=== PATIENT | male | born 1945 | race Caucasian/White ===

== ENCOUNTER 2017-04-30 08:56 | Observation (INO) | payer MEDICARE ==
[~2017-04-30] VITALS: Ht 182.9 cm; Wt 87.3 kg
[~2017-04-30 08:56] MED LIST: ACET500 PO; ALBU3IS INH; ALBU90OI61 INH; ALLO100 PO; AMLO10 PO; AMLO5 PO; ASCO500 PO; ASPI81CH PO; ASPI81EC PO; Ativan0.5 MG PO; BISA5EC PO; CALACE667G PO; CALCIT950 PO; CHOL10002 PO; CINA30 PO; CITA20 PO; CLON.1 PO; CLON.2 PO; CLON.5 PO; CYAN1000; CYAN1000 PO; CYAN1000I; CYAN1000I IM; CYCL10 PO; Calcium Acetat667 MG PO; Cymbalta20 MG PO; DEXT40GEL PO; DIAZ2 PO; DILT120 PO; DILT60 PO; DILT60ER PO; DOCU100 PO; ERGO50000 PO; FERR325 PO; FLONASE ALLERG9.9 ML INH; FLUN25SP; FOLI1 PO; FURO40 PO; FURO80 PO; GABA100 PO; GABA300 PO; HYDMOR2 PO; HYDRA25 PO; LEVCAR2510 PO; LISI20 PO; LORA.5 PO; METO25 PO; METO50ER PO; METR500 PO; MIDO2.5 PO; MORP15ER PO; MULVITMINF PO; NICO21TP; NITR.4SL SL; NORT25 PO; OMEP20ER PO; ONDA4ODT MM; OXYACE5T PO; OXYC10ER PO; OXYC5 PO; PANT40 PO; PYRI100 PO; Prosource30 ML PO; QUET200 PO; QUET25 PO; ROPI.25 PO; ROPI1 PO; SILD50TA PO; SIME80CH PO; SODBIC650 PO; TAMS.4ER PO; TIOT18 INH; TIOT18 PO; TOCO1000 PO; VITAMIN E100 UNIT PO; [UNRECOGNIZED DRUG - CODE] SC
[2017-04-30] MEDS ORDERED: TIOT18 INH (09:23)
[2017-04-30] MEDS ORDERED: TUMS200 MG PO (09:23)
[2017-04-30] MEDS ORDERED: Requip0.5 MG PO (09:24)
[2017-04-30] MEDS ORDERED: Carbidopa-Levo1 EAC1 PO (09:24)
[2017-04-30 09:27] LABS: BASOPHILS ABSOLUTE AUTO 0.04 K/mm3 (0.00-0.23); BASOPHILS PERCENT AUTO 1 % (0-2); EOSINOPHILS ABSOLUTE AUTO 0.09 K/mm3 (0.00-0.68); EOSINOPHILS PERCENT AUTO 1 % (0-6); Hematocrit 33.9 % (37.0-53.0); Hemoglobin 10.3 g/dL (13.5-17.5); IMMATURE GRAN ABSOLUTE AUTO 0.03 K/mm3 (0.00-0.10); IMMATURE GRAN PERCENT AUTO 0 % (0-1); LYMPHOCYTES ABSOLUTE AUTO 0.47 K/mm3 (0.84-5.20); LYMPHOCYTES PERCENT AUTO 6 % (21-46); MONOCYTES ABSOLUTE AUTO 0.48 K/mm3 (0.16-1.47); MONOCYTES PERCENT AUTO 6 % (4-13); Mean Corpuscular HGB 29.1 pg (26.0-34.0); Mean Corpuscular HGB Conc 30.4 g/dL (31.5-36.5); Mean Corpuscular Volume 96 fL (80-100); Mean Platelet Volume 10.7 fL (9.1-12.4); NEUTROPHILS ABSOLUTE AUTO 6.84 K/mm3 (1.96-9.15); NEUTROPHILS PERCENT AUTO 86 % (41-73); Platelet Count 165 K/mm3 (150-400); RDW Coefficient Variation 17.2 % (11.7-14.2); RDW Standard Deviation 60.7 fL (35.1-46.3); Red Blood Cell Count 3.54 M/mm3 (4.30-5.90); White Blood Cell Count 7.95 K/mm3 (4.00-11.30)
[2017-04-30 09:57] LABS: International Normalized Ratio 0.94; Prothrombin Time Results 9.8 Sec (9.7-11.5)
[2017-04-30 09:59] LABS: Albumin/Globulin Ratio 0.9 (0.8-1.8); Bilirubin, Total 0.5 mg/dL (0.1-1.0); Bun/Creatinine Ratio 8.7 (12.0-20.0); Calcium, Blood 7.6 mg/dL (8.5-10.1); Creatinine, Blood 2.41 mg/dL (0.60-1.20); Globulin, Blood 3.2 g/dL (2.2-4.0); Magnesium, Blood 2.1 mg/dL (1.6-2.4); Potassium, Blood 3.3 mmol/L (3.5-5.5); Total Protein, Blood 6.2 g/dL (6.4-8.2); Troponin I 0.103 ng/mL (0.000-0.040)
[2017-04-30 10:03] LABS: Thyroid Stimulating Hormone 1.13 uIU/mL (0.360-4.800)
[2017-05-01 05:53] LABS: Bun/Creatinine Ratio 9.6 (12.0-20.0); Calcium, Blood 7.8 mg/dL (8.5-10.1); Creatinine, Blood 4.06 mg/dL (0.60-1.20); Potassium, Blood 4.5 mmol/L (3.5-5.5)
[2017-05-01] MEDS ORDERED: Calcium Acetat667 MG PO (08:41)
[2017-05-02] MEDS ORDERED: CLON.5 PO (21:48)
[2017-05-02] MEDS ORDERED: Zofran4 MG PO (21:51)
[2017-05-02] MEDS ORDERED: PYRI100 PO (21:54)
[2017-05-02] MEDS ORDERED: [UNRECOGNIZED DRUG - SUPPLY] (21:56)
[2017-05-02] MEDS ORDERED: CYAN1000I IM (22:00)
[2018-01-28] MEDS ORDERED: CALC.25 PO (16:11)
[2018-01-28] MEDS ORDERED: ASPI81CH PO (16:11)
[2018-01-28] MEDS ORDERED: CLOP75 PO (16:12)
[2018-01-28] MEDS ORDERED: LEVSOD50 PO (16:14)
[2018-01-28] MEDS ORDERED: PREG75 PO (16:15)
[2018-01-29] MEDS ORDERED: VITAMIN D32000 UNIT PO (00:45)
[2018-01-29] MEDS ORDERED: CYAN1000I IM (00:47)
[2018-01-29] MEDS ORDERED: DOXY100 PO (00:49)
[2018-01-31] MEDS ORDERED: FURO40 PO ×2 (08:46)
[2018-01-31] MEDS ORDERED: CALCIUM ACETAT667 MG PO (08:50)
[2018-01-31] MEDS ORDERED: LEVSOD88 PO (08:57)
[2018-01-31] MEDS ORDERED: OXYC10TA19 PO (08:59)
[2018-02-04] MEDS ORDERED: DOXY100 PO (12:49)
[2018-02-04] MEDS ORDERED: Bactrim Ds Tab1 EACH PO (12:51)
[2018-02-04] MEDS ORDERED: GABA100 PO (12:52)
[2018-02-04] MEDS ORDERED: ACET325 PO (12:55)
[2018-02-16] MEDS ORDERED: Amiodarone HCl200 MG PO (13:48)
[2018-02-16] MEDS ORDERED: ELIQUIS5 MG PO (13:49)
[2018-02-16] MEDS ORDERED: LEVSOD125 PO (13:53)
[2018-02-16] MEDS ORDERED: UNNA-FLEX1 EACH TOP (13:57)
== END 2017-05-01 09:00 | disposition home or self-care (01) ==
LOC: ER 08:56 → PCU 08:57
PROVIDERS: Emergency Medicine; Internal Medicine
DX: I48.0 Paroxysmal atrial fibrillation (principal); I12.0 Hypertensive chronic kidney disease with stage 5 chronic kidney disease or end stage renal disease; N18.6 End stage renal disease; I21.A1 Myocardial infarction type 2; E87.6 Hypokalemia; K76.6 Portal hypertension; E21.3 Hyperparathyroidism, unspecified; R79.89 Other specified abnormal findings of blood chemistry; J44.9 Chronic obstructive pulmonary disease, unspecified; D63.1 Anemia in chronic kidney disease; M10.30 Gout due to renal impairment, unspecified site; K70.30 Alcoholic cirrhosis of liver without ascites; F10.20 Alcohol dependence, uncomplicated; F17.200 Nicotine dependence, unspecified, uncomplicated; G47.33 Obstructive sleep apnea (adult) (pediatric); Z99.2 Dependence on renal dialysis; Z79.82 Long term (current) use of aspirin; Z79.899 Other long term (current) drug therapy; Z88.8 Allergy status to other drugs, medicaments and biological substances; Z88.6 Allergy status to analgesic agent; Z98.84 Bariatric surgery status; Z98.0 Intestinal bypass and anastomosis status
CPT/HCPCS: 36415; 71045; 80048; 80053; 83735; 83880; 84443; 84484; 85025; 85610; 93005; 93010; 96365; 96366; 96374; 96375; 96376; 99285; G0378; J1170; J2405; J3480

== ENCOUNTER 2017-05-02 17:35 | Inpatient (IN) | payer OTHER, MEDICARE ==
[~2017-05-02] VITALS: Ht 180.3 cm; Wt 88.4 kg
[~2017-05-02 17:35] MED LIST changes: +Carbidopa-Levo1 EAC1 PO; +Requip0.5 MG PO; +TUMS200 MG PO
[2017-05-02 18:04] LABS: Hematocrit 33.1 % (37.0-53.0); Mean Corpuscular HGB 28.8 pg (26.0-34.0); Mean Corpuscular HGB Conc 30.2 g/dL (31.5-36.5); Mean Corpuscular Volume 95 fL (80-100); Platelet Count 206 K/mm3 (150-400); RDW Coefficient Variation 17.2 % (11.7-14.2); RDW Standard Deviation 59.6 fL (35.1-46.3); Red Blood Cell Count 3.47 M/mm3 (4.30-5.90); White Blood Cell Count 6.61 K/mm3 (4.00-11.30)
[2017-05-02 18:30] LABS: Bun/Creatinine Ratio 9.9 (12.0-20.0); Calcium, Blood 8.2 mg/dL (8.5-10.1); Creatinine, Blood 3.85 mg/dL (0.60-1.20); Magnesium, Blood 2.2 mg/dL (1.6-2.4); Potassium, Blood 4.3 mmol/L (3.5-5.5); Troponin I 0.076 ng/mL (0.000-0.040)
[2017-05-02] MEDS ORDERED: CLON.5 PO (21:48)
[2017-05-02] MEDS ORDERED: Zofran4 MG PO (21:51)
[2017-05-02] MEDS ORDERED: PYRI100 PO (21:54)
[2017-05-02] MEDS ORDERED: [UNRECOGNIZED DRUG - SUPPLY] (21:56)
[2017-05-02] MEDS ORDERED: CYAN1000I IM (22:00)
[2017-05-04 04:25] LABS: Hematocrit 32.7 % (37.0-53.0); Hemoglobin 9.9 g/dL (13.5-17.5)
[2017-05-04 04:48] LABS: Albumin, Blood 2.8 g/dL (3.4-5.0); Anion Gap 9 mmol/L (6-16); Blood Urea Nitrogen 37 mg/dL (8-24); Bun/Creatinine Ratio 9.3 (12.0-20.0); CO2, Blood 30 mmol/L (21-32); Calcium, Blood 8.1 mg/dL (8.5-10.1); Chloride, Blood 99 mmol/L (98-108); Creatinine, Blood 3.98 mg/dL (0.60-1.20); Glomerular Filtration Rate 16 (60-); Glucose, Blood 80 mg/dL (70-99); Magnesium, Blood 2.3 mg/dL (1.6-2.4); Phosphorus, Blood 4.8 mg/dL (2.5-4.9); Potassium, Blood 4.3 mmol/L (3.5-5.5); Sodium, Blood 138 mmol/L (136-145)
[2017-05-04] MEDS ORDERED: ELIQUIS5 MG PO (14:42)
[2017-05-04] MEDS ORDERED: METO50ER PO (14:43)
[2017-05-04] MEDS ORDERED: Amiodarone HCl200 MG PO (14:44)
[2018-01-28] MEDS ORDERED: ASPI81CH PO (16:11)
[2018-01-28] MEDS ORDERED: CALC.25 PO (16:11)
[2018-01-28] MEDS ORDERED: CLOP75 PO (16:12)
[2018-01-28] MEDS ORDERED: LEVSOD50 PO (16:14)
[2018-01-28] MEDS ORDERED: PREG75 PO (16:15)
[2018-01-29] MEDS ORDERED: VITAMIN D32000 UNIT PO (00:45)
[2018-01-29] MEDS ORDERED: CYAN1000I IM (00:47)
[2018-01-29] MEDS ORDERED: DOXY100 PO (00:49)
[2018-01-31] MEDS ORDERED: FURO40 PO ×2 (08:46)
[2018-01-31] MEDS ORDERED: CALCIUM ACETAT667 MG PO (08:50)
[2018-01-31] MEDS ORDERED: LEVSOD88 PO (08:57)
[2018-01-31] MEDS ORDERED: OXYC10TA19 PO (08:59)
[2018-02-04] MEDS ORDERED: DOXY100 PO (12:49)
[2018-02-04] MEDS ORDERED: Bactrim Ds Tab1 EACH PO (12:51)
[2018-02-04] MEDS ORDERED: GABA100 PO (12:52)
[2018-02-04] MEDS ORDERED: ACET325 PO (12:55)
[2018-02-16] MEDS ORDERED: Amiodarone HCl200 MG PO (13:48)
[2018-02-16] MEDS ORDERED: ELIQUIS5 MG PO (13:49)
[2018-02-16] MEDS ORDERED: LEVSOD125 PO (13:53)
[2018-02-16] MEDS ORDERED: UNNA-FLEX1 EACH TOP (13:57)
== END 2017-05-04 14:58 | disposition home or self-care (01) | DRG 280 ==
LOC: ER 17:35 → PCU 17:36
PROVIDERS: Emergency Medicine; Internal Medicine; Internal Medicine Nephrology
PROC: 5A1D70Z Performance of Urinary Filtration, Intermittent, Less than 6 Hours Per Day (ICD-10-PCS; principal; 2017-05-03)
DX: I21.A1 Myocardial infarction type 2 (principal); N18.6 End stage renal disease; G62.9 Polyneuropathy, unspecified; I13.2 Hypertensive heart and chronic kidney disease with heart failure and with stage 5 chronic kidney disease, or end stage renal disease; I50.33 Acute on chronic diastolic (congestive) heart failure; F11.20 Opioid dependence, uncomplicated; D63.1 Anemia in chronic kidney disease; I48.0 Paroxysmal atrial fibrillation; E21.3 Hyperparathyroidism, unspecified; E78.5 Hyperlipidemia, unspecified; M10.9 Gout, unspecified; J44.9 Chronic obstructive pulmonary disease, unspecified; G89.4 Chronic pain syndrome; K21.9 Gastro-esophageal reflux disease without esophagitis; F17.210 Nicotine dependence, cigarettes, uncomplicated; N40.0 Benign prostatic hyperplasia without lower urinary tract symptoms; G25.81 Restless legs syndrome; F32.9 Major depressive disorder, single episode, unspecified; Z99.2 Dependence on renal dialysis; Z86.73 Personal history of transient ischemic attack (TIA), and cerebral infarction without residual deficits; Z79.82 Long term (current) use of aspirin; Z79.899 Other long term (current) drug therapy; Z88.8 Allergy status to other drugs, medicaments and biological substances
CPT/HCPCS: 36415; 71045; 80048; 80069; 83735; 83880; 84484; 85014; 85018; 85027; 93005; 93010; 93306; 94640; 94760; 96365; 96366; 96367; 96376; 99285; J0282; J0881; J2405; J7060

== ENCOUNTER 2017-05-24 22:03 | Inpatient (IN) | payer MEDICARE ==
[~2017-05-24] VITALS: Ht 182.9 cm; Wt 84.1 kg
[~2017-05-24 22:03] MED LIST changes: +Amiodarone HCl200 MG PO; +ELIQUIS5 MG PO; +Zofran4 MG PO; +[UNRECOGNIZED DRUG - SUPPLY]
[2017-05-24 22:25] LABS: BASOPHILS ABSOLUTE AUTO 0.05 K/mm3 (0.00-0.23); BASOPHILS PERCENT AUTO 1 % (0-2); EOSINOPHILS ABSOLUTE AUTO 0.02 K/mm3 (0.00-0.68); EOSINOPHILS PERCENT AUTO 0 % (0-6); Hematocrit 35.2 % (37.0-53.0); Hemoglobin 10.6 g/dL (13.5-17.5); IMMATURE GRAN ABSOLUTE AUTO 0.02 K/mm3 (0.00-0.10); IMMATURE GRAN PERCENT AUTO 0 % (0-1); LYMPHOCYTES ABSOLUTE AUTO 0.77 K/mm3 (0.84-5.20); LYMPHOCYTES PERCENT AUTO 12 % (21-46); MONOCYTES ABSOLUTE AUTO 0.57 K/mm3 (0.16-1.47); MONOCYTES PERCENT AUTO 9 % (4-13); Mean Corpuscular HGB 28.9 pg (26.0-34.0); Mean Corpuscular HGB Conc 30.1 g/dL (31.5-36.5); Mean Corpuscular Volume 96 fL (80-100); Mean Platelet Volume 12.3 fL (9.1-12.4); NEUTROPHILS ABSOLUTE AUTO 4.81 K/mm3 (1.96-9.15); NEUTROPHILS PERCENT AUTO 77 % (41-73); Platelet Count 179 K/mm3 (150-400); RDW Coefficient Variation 17.1 % (11.7-14.2); RDW Standard Deviation 60.3 fL (35.1-46.3); Red Blood Cell Count 3.67 M/mm3 (4.30-5.90); White Blood Cell Count 6.24 K/mm3 (4.00-11.30)
[2017-05-24 22:30] LABS: Calcium, Ionized (POC) 0.94 mmol/L (1.10-1.46); Chloride (POC) 98 mmol/L (98-108); Creatinine (POC) 5.3 mg/dL (0.8-1.3); Glucose (ISTAT POC) 100 mg/dL (70-99); Hemoglobin (POC) 11.6 g/dL (13.5-17.5); Potassium (POC) 4.4 mmol/L (3.5-5.5); Sodium (POC) 138 mmol/L (135-148); Total CO2 (POC) 28 mmol/L (21-32)
[2017-05-24] MEDS ORDERED: CINA30 PO (22:38)
[2017-05-24] MEDS ORDERED: SULFATRIM 800-120 ML PO (22:40)
[2017-05-24] MEDS ORDERED: CLON.1 PO (22:43)
[2017-05-24] MEDS ORDERED: ELIQUIS5 MG PO (22:44)
[2017-05-24 22:45] LABS: Albumin, Blood 3.2 g/dL (3.4-5.0); Bilirubin, Total 0.4 mg/dL (0.1-1.0); Bun/Creatinine Ratio 7.8 (12.0-20.0); Calcium, Blood 7.4 mg/dL (8.5-10.1); Creatinine, Blood 5.02 mg/dL (0.60-1.20); Globulin, Blood 3.1 g/dL (2.2-4.0); Potassium, Blood 4.5 mmol/L (3.5-5.5); Total Protein, Blood 6.3 g/dL (6.4-8.2); Troponin I 0.06 ng/mL (0.000-0.040)
[2017-05-25 06:57] LABS: BASOPHILS ABSOLUTE AUTO 0.03 K/mm3 (0.00-0.23); BASOPHILS PERCENT AUTO 1 % (0-2); EOSINOPHILS PERCENT AUTO 0 % (0-6); Hematocrit 33.9 % (37.0-53.0); Hemoglobin 10.1 g/dL (13.5-17.5); IMMATURE GRAN ABSOLUTE AUTO 0.01 K/mm3 (0.00-0.10); IMMATURE GRAN PERCENT AUTO 0 % (0-1); LYMPHOCYTES PERCENT AUTO 9 % (21-46); MONOCYTES ABSOLUTE AUTO 0.35 K/mm3 (0.16-1.47); MONOCYTES PERCENT AUTO 8 % (4-13); Mean Corpuscular HGB 28.9 pg (26.0-34.0); Mean Corpuscular HGB Conc 29.8 g/dL (31.5-36.5); Mean Corpuscular Volume 97 fL (80-100); NEUTROPHILS ABSOLUTE AUTO 3.77 K/mm3 (1.96-9.15); NEUTROPHILS PERCENT AUTO 83 % (41-73); Platelet Count 146 K/mm3 (150-400); RDW Coefficient Variation 16.9 % (11.7-14.2); RDW Standard Deviation 60.5 fL (35.1-46.3); White Blood Cell Count 4.56 K/mm3 (4.00-11.30)
[2017-05-25 07:03] LABS: Albumin, Blood 2.8 g/dL (3.4-5.0); Albumin/Globulin Ratio 0.9 (0.8-1.8); Bilirubin, Total 0.4 mg/dL (0.1-1.0); Bun/Creatinine Ratio 8.5 (12.0-20.0); Calcium, Blood 7.2 mg/dL (8.5-10.1); Creatinine, Blood 5.15 mg/dL (0.60-1.20); Potassium, Blood 4.8 mmol/L (3.5-5.5); Total Protein, Blood 5.8 g/dL (6.4-8.2)
[2017-05-25 07:10] LABS: Troponin I 0.092 ng/mL (0.000-0.040)
[2017-05-25 07:13] LABS: Albumin, Blood 2.8 g/dL (3.4-5.0); Anion Gap 11 mmol/L (6-16); Blood Urea Nitrogen 44 mg/dL (8-24); Bun/Creatinine Ratio 8.3 (12.0-20.0); CO2, Blood 28 mmol/L (21-32); Calcium, Blood 7.2 mg/dL (8.5-10.1); Chloride, Blood 101 mmol/L (98-108); Creatinine, Blood 5.33 mg/dL (0.60-1.20); Glomerular Filtration Rate 11 (60-); Glucose, Blood 83 mg/dL (70-99); Magnesium, Blood 2.8 mg/dL (1.6-2.4); Phosphorus, Blood 5.8 mg/dL (2.5-4.9); Potassium, Blood 4.7 mmol/L (3.5-5.5); Sodium, Blood 140 mmol/L (136-145)
[2017-05-25 14:47] LABS: Troponin I 0.096 ng/mL (0.000-0.040)
[2017-05-26 04:22] LABS: Hemoglobin 9.9 g/dL (13.5-17.5)
[2017-05-26 04:40] LABS: Albumin, Blood 2.7 g/dL (3.4-5.0); Anion Gap 10 mmol/L (6-16); Blood Urea Nitrogen 36 mg/dL (8-24); Bun/Creatinine Ratio 7.6 (12.0-20.0); CO2, Blood 30 mmol/L (21-32); Calcium, Blood 7.4 mg/dL (8.5-10.1); Chloride, Blood 98 mmol/L (98-108); Creatinine, Blood 4.71 mg/dL (0.60-1.20); Glomerular Filtration Rate 13 (60-); Glucose, Blood 65 mg/dL (70-99); Magnesium, Blood 2.4 mg/dL (1.6-2.4); Phosphorus, Blood 4.8 mg/dL (2.5-4.9); Potassium, Blood 4.4 mmol/L (3.5-5.5); Sodium, Blood 138 mmol/L (136-145)
[2017-05-26 20:03] LABS: HCV Reactive (NR)
[2017-05-27 05:01] LABS: Hemoglobin 10.3 g/dL (13.5-17.5)
[2017-05-27 05:32] LABS: Magnesium, Blood 2.5 mg/dL (1.6-2.4)
[2017-05-27 05:39] LABS: Albumin, Blood 2.6 g/dL (3.4-5.0); Anion Gap 11 mmol/L (6-16); Blood Urea Nitrogen 54 mg/dL (8-24); Bun/Creatinine Ratio 9.7 (12.0-20.0); CO2, Blood 26 mmol/L (21-32); Calcium, Blood 7.2 mg/dL (8.5-10.1); Chloride, Blood 97 mmol/L (98-108); Creatinine, Blood 5.57 mg/dL (0.60-1.20); Glomerular Filtration Rate 11 (60-); Glucose, Blood 69 mg/dL (70-99); Phosphorus, Blood 4.9 mg/dL (2.5-4.9); Potassium, Blood 4.4 mmol/L (3.5-5.5); Sodium, Blood 134 mmol/L (136-145)
[2017-05-27 17:39] LABS: BASOPHILS ABSOLUTE AUTO 0.02 K/mm3 (0.00-0.23); BASOPHILS PERCENT AUTO 1 % (0-2); EOSINOPHILS ABSOLUTE AUTO 0.01 K/mm3 (0.00-0.68); EOSINOPHILS PERCENT AUTO 0 % (0-6); Hematocrit 36.9 % (37.0-53.0); Hemoglobin 11.3 g/dL (13.5-17.5); IMMATURE GRAN ABSOLUTE AUTO 0.02 K/mm3 (0.00-0.10); IMMATURE GRAN PERCENT AUTO 1 % (0-1); LYMPHOCYTES ABSOLUTE AUTO 0.33 K/mm3 (0.84-5.20); LYMPHOCYTES PERCENT AUTO 9 % (21-46); MONOCYTES ABSOLUTE AUTO 0.34 K/mm3 (0.16-1.47); MONOCYTES PERCENT AUTO 9 % (4-13); Mean Corpuscular HGB 28.3 pg (26.0-34.0); Mean Corpuscular HGB Conc 30.6 g/dL (31.5-36.5); Mean Platelet Volume 11.7 fL (9.1-12.4); NEUTROPHILS ABSOLUTE AUTO 2.94 K/mm3 (1.96-9.15); NEUTROPHILS PERCENT AUTO 80 % (41-73); Platelet Count 128 K/mm3 (150-400); RDW Coefficient Variation 16.5 % (11.7-14.2); RDW Standard Deviation 56.6 fL (35.1-46.3); White Blood Cell Count 3.66 K/mm3 (4.00-11.30)
[2017-05-27 17:40] LABS: Mean Corpuscular Volume 92 fL (80-100)
[2017-05-27 17:51] LABS: International Normalized Ratio 1.09; Prothrombin Time Results 11.4 Sec (9.7-11.5)
[2017-05-28 05:21] LABS: Hematocrit 36.8 % (37.0-53.0); Hemoglobin 11.3 g/dL (13.5-17.5)
[2017-05-28 05:46] LABS: Anion Gap 12 mmol/L (6-16); Blood Urea Nitrogen 53 mg/dL (8-24); CO2, Blood 27 mmol/L (21-32); Calcium, Blood 7.4 mg/dL (8.5-10.1); Chloride, Blood 95 mmol/L (98-108); Creatinine, Blood 5.31 mg/dL (0.60-1.20); Glomerular Filtration Rate 11 (60-); Glucose, Blood 91 mg/dL (70-99); Magnesium, Blood 2.5 mg/dL (1.6-2.4); Phosphorus, Blood 4.4 mg/dL (2.5-4.9); Potassium, Blood 4.3 mmol/L (3.5-5.5); Sodium, Blood 134 mmol/L (136-145)
[2018-01-28] MEDS ORDERED: ASPI81CH PO (16:11)
[2018-01-28] MEDS ORDERED: CALC.25 PO (16:11)
[2018-01-28] MEDS ORDERED: CLOP75 PO (16:12)
[2018-01-28] MEDS ORDERED: LEVSOD50 PO (16:14)
[2018-01-28] MEDS ORDERED: PREG75 PO (16:15)
[2018-01-29] MEDS ORDERED: VITAMIN D32000 UNIT PO (00:45)
[2018-01-29] MEDS ORDERED: CYAN1000I IM (00:47)
[2018-01-29] MEDS ORDERED: DOXY100 PO (00:49)
[2018-01-31] MEDS ORDERED: FURO40 PO ×2 (08:46)
[2018-01-31] MEDS ORDERED: CALCIUM ACETAT667 MG PO (08:50)
[2018-01-31] MEDS ORDERED: LEVSOD88 PO (08:57)
[2018-01-31] MEDS ORDERED: OXYC10TA19 PO (08:59)
[2018-02-04] MEDS ORDERED: DOXY100 PO (12:49)
[2018-02-04] MEDS ORDERED: Bactrim Ds Tab1 EACH PO (12:51)
[2018-02-04] MEDS ORDERED: GABA100 PO (12:52)
[2018-02-04] MEDS ORDERED: ACET325 PO (12:55)
[2018-02-16] MEDS ORDERED: Amiodarone HCl200 MG PO (13:48)
[2018-02-16] MEDS ORDERED: ELIQUIS5 MG PO (13:49)
[2018-02-16] MEDS ORDERED: LEVSOD125 PO (13:53)
[2018-02-16] MEDS ORDERED: UNNA-FLEX1 EACH TOP (13:57)
== END 2017-05-28 11:37 | disposition home or self-care (01) | DRG 291 ==
LOC: ER 22:03 → ICUW 23:39 → MEDS 05-26 13:12 → ENPENDDIS 05-28 10:30 → MEDS 05-28 11:37
PROVIDERS: Emergency Medicine; Internal Medicine; Internal Medicine Nephrology
PROC: 5A09457 Assistance with Respiratory Ventilation, 24-96 Consecutive Hours, Continuous Positive Airway Pressure (ICD-10-PCS; principal; 2017-05-24)
PROC: 5A1D70Z Performance of Urinary Filtration, Intermittent, Less than 6 Hours Per Day (ICD-10-PCS; 2017-05-28)
DX: I13.2 Hypertensive heart and chronic kidney disease with heart failure and with stage 5 chronic kidney disease, or end stage renal disease (principal); J96.01 Acute respiratory failure with hypoxia; I50.33 Acute on chronic diastolic (congestive) heart failure; N18.6 End stage renal disease; E87.1 Hypo-osmolality and hyponatremia; I16.1 Hypertensive emergency; E87.70 Fluid overload, unspecified; E83.41 Hypermagnesemia; G62.9 Polyneuropathy, unspecified; D63.1 Anemia in chronic kidney disease; F17.211 Nicotine dependence, cigarettes, in remission; J44.9 Chronic obstructive pulmonary disease, unspecified; K21.9 Gastro-esophageal reflux disease without esophagitis; N40.0 Benign prostatic hyperplasia without lower urinary tract symptoms; Z86.73 Personal history of transient ischemic attack (TIA), and cerebral infarction without residual deficits; Z99.2 Dependence on renal dialysis
CPT/HCPCS: 36415; 51702; 71045; 80047; 80053; 80069; 80074; 82550; 83735; 83880; 84484; 85014; 85018; 85025; 85610; 86706; 93005; 93010; 94640; 94660; 94760; 96365; 96375; 99285; J0881; J1650; J1940; J2060; J2405; J2765; J3010

== ENCOUNTER 2017-06-16 10:05 | Observation (INO) | payer OTHER, MEDICARE ==
[~2017-06-16] VITALS: Ht 182.9 cm; Wt 87.8 kg
[~2017-06-16 10:05] MED LIST changes: +SULFATRIM 800-120 ML PO
[2017-06-16] MEDS ORDERED: AZIT250 PO (10:21)
[2017-06-16] MEDS ORDERED: CLON.5 PO (10:24)
[2017-06-16 11:22] LABS: BASOPHILS ABSOLUTE AUTO 0.01 K/mm3 (0.00-0.23); BASOPHILS PERCENT AUTO 0 % (0-2); EOSINOPHILS PERCENT AUTO 0 % (0-6); Hematocrit 31.8 % (37.0-53.0); Hemoglobin 9.4 g/dL (13.5-17.5); IMMATURE GRAN ABSOLUTE AUTO 0.08 K/mm3 (0.00-0.10); IMMATURE GRAN PERCENT AUTO 1 % (0-1); LYMPHOCYTES ABSOLUTE AUTO 0.43 K/mm3 (0.84-5.20); LYMPHOCYTES PERCENT AUTO 5 % (21-46); MONOCYTES ABSOLUTE AUTO 0.11 K/mm3 (0.16-1.47); MONOCYTES PERCENT AUTO 1 % (4-13); Mean Corpuscular HGB 27.9 pg (26.0-34.0); Mean Corpuscular HGB Conc 29.6 g/dL (31.5-36.5); Mean Corpuscular Volume 94 fL (80-100); Mean Platelet Volume 10.4 fL (9.1-12.4); NEUTROPHILS ABSOLUTE AUTO 7.92 K/mm3 (1.96-9.15); NEUTROPHILS PERCENT AUTO 93 % (41-73); Platelet Count 294 K/mm3 (150-400); RDW Coefficient Variation 17.7 % (11.7-14.2); Red Blood Cell Count 3.37 M/mm3 (4.30-5.90); White Blood Cell Count 8.55 K/mm3 (4.00-11.30)
[2017-06-16 11:34] LABS: International Normalized Ratio 0.99; Prothrombin Time Results 10.3 Sec (9.7-11.5)
[2017-06-16 13:53] LABS: Bun/Creatinine Ratio 12.5 (12.0-20.0); Calcium, Blood 7.8 mg/dL (8.5-10.1); Creatinine, Blood 5.74 mg/dL (0.60-1.20); Potassium, Blood 6.1 mmol/L (3.5-5.5)
[2017-06-17 05:15] LABS: Hematocrit 31.2 % (37.0-53.0); Hemoglobin 9.6 g/dL (13.5-17.5)
[2017-06-17 05:32] LABS: Albumin, Blood 2.4 g/dL (3.4-5.0); Anion Gap 10 mmol/L (6-16); Blood Urea Nitrogen 77 mg/dL (8-24); Bun/Creatinine Ratio 12.9 (12.0-20.0); CO2, Blood 23 mmol/L (21-32); Calcium, Blood 7.6 mg/dL (8.5-10.1); Chloride, Blood 105 mmol/L (98-108); Creatinine, Blood 5.99 mg/dL (0.60-1.20); Glomerular Filtration Rate 10 (60-); Glucose, Blood 76 mg/dL (70-99); Magnesium, Blood 2.5 mg/dL (1.6-2.4); Phosphorus, Blood 6.5 mg/dL (2.5-4.9); Potassium, Blood 5.6 mmol/L (3.5-5.5); Sodium, Blood 138 mmol/L (136-145)
[2018-01-28] MEDS ORDERED: CALC.25 PO (16:11)
[2018-01-28] MEDS ORDERED: ASPI81CH PO (16:11)
[2018-01-28] MEDS ORDERED: CLOP75 PO (16:12)
[2018-01-28] MEDS ORDERED: LEVSOD50 PO (16:14)
[2018-01-28] MEDS ORDERED: PREG75 PO (16:15)
[2018-01-29] MEDS ORDERED: VITAMIN D32000 UNIT PO (00:45)
[2018-01-29] MEDS ORDERED: CYAN1000I IM (00:47)
[2018-01-29] MEDS ORDERED: DOXY100 PO (00:49)
[2018-01-31] MEDS ORDERED: FURO40 PO ×2 (08:46)
[2018-01-31] MEDS ORDERED: CALCIUM ACETAT667 MG PO (08:50)
[2018-01-31] MEDS ORDERED: LEVSOD88 PO (08:57)
[2018-01-31] MEDS ORDERED: OXYC10TA19 PO (08:59)
[2018-02-04] MEDS ORDERED: DOXY100 PO (12:49)
[2018-02-04] MEDS ORDERED: Bactrim Ds Tab1 EACH PO (12:51)
[2018-02-04] MEDS ORDERED: GABA100 PO (12:52)
[2018-02-04] MEDS ORDERED: ACET325 PO (12:55)
[2018-02-16] MEDS ORDERED: Amiodarone HCl200 MG PO (13:48)
[2018-02-16] MEDS ORDERED: ELIQUIS5 MG PO (13:49)
[2018-02-16] MEDS ORDERED: LEVSOD125 PO (13:53)
[2018-02-16] MEDS ORDERED: UNNA-FLEX1 EACH TOP (13:57)
== END 2017-06-17 14:55 | disposition short-term general hospital (02) ==
LOC: ER 10:05 → PCU 10:06 → ICUW 10:06 → MEDS 06-17 12:07
PROVIDERS: Emergency Medicine; Internal Medicine Critical Care Medicine; Internal Medicine Nephrology
PROC: B543ZZA Ultrasonography of Right Jugular Veins, Guidance (ICD-10-PCS; principal; 2017-06-16)
PROC: 05HM33Z Insertion of Infusion Device into Right Internal Jugular Vein, Percutaneous Approach (ICD-10-PCS; 2017-06-16)
DX: T82.49XA Other complication of vascular dialysis catheter, initial encounter (principal); I13.2 Hypertensive heart and chronic kidney disease with heart failure and with stage 5 chronic kidney disease, or end stage renal disease; N18.6 End stage renal disease; I50.9 Heart failure, unspecified; N40.0 Benign prostatic hyperplasia without lower urinary tract symptoms; J44.9 Chronic obstructive pulmonary disease, unspecified; K21.9 Gastro-esophageal reflux disease without esophagitis; I48.91 Unspecified atrial fibrillation; I48.92 Unspecified atrial flutter; M19.90 Unspecified osteoarthritis, unspecified site; G25.81 Restless legs syndrome; G62.9 Polyneuropathy, unspecified; E87.5 Hyperkalemia; Z86.73 Personal history of transient ischemic attack (TIA), and cerebral infarction without residual deficits; Z99.2 Dependence on renal dialysis; Z88.8 Allergy status to other drugs, medicaments and biological substances; Z79.899 Other long term (current) drug therapy; Z79.01 Long term (current) use of anticoagulants; Z79.82 Long term (current) use of aspirin; Z87.891 Personal history of nicotine dependence
CPT/HCPCS: 36415; 71045; 80048; 80069; 82947; 83735; 83880; 84132; 85014; 85018; 85025; 85610; 85730; 94640; 96365; 96375; 99285; G0257; G0378; J0360; J0610; J1815

== ENCOUNTER 2017-08-24 17:34 | Inpatient (IN) | payer OTHER, MEDICARE ==
[~2017-08-24] VITALS: Ht 188 cm; Wt 91.4 kg
[~2017-08-24 17:34] MED LIST changes: +AZIT250 PO; -Requip0.5 MG PO
[2017-08-24 19:53] LABS: BASOPHILS ABSOLUTE AUTO 0.03 K/mm3 (0.00-0.23); BASOPHILS PERCENT AUTO 0 % (0-2); EOSINOPHILS ABSOLUTE AUTO 0.03 K/mm3 (0.00-0.68); EOSINOPHILS PERCENT AUTO 0 % (0-6); Hematocrit 28.5 % (37.0-53.0); Hemoglobin 8.6 g/dL (13.5-17.5); IMMATURE GRAN ABSOLUTE AUTO 0.03 K/mm3 (0.00-0.10); IMMATURE GRAN PERCENT AUTO 0 % (0-1); LYMPHOCYTES ABSOLUTE AUTO 0.49 K/mm3 (0.84-5.20); LYMPHOCYTES PERCENT AUTO 7 % (21-46); MONOCYTES ABSOLUTE AUTO 0.35 K/mm3 (0.16-1.47); MONOCYTES PERCENT AUTO 5 % (4-13); Mean Corpuscular HGB 29.7 pg (26.0-34.0); Mean Corpuscular HGB Conc 30.2 g/dL (31.5-36.5); Mean Corpuscular Volume 98 fL (80-100); Mean Platelet Volume 11.6 fL (9.1-12.4); NEUTROPHILS ABSOLUTE AUTO 5.98 K/mm3 (1.96-9.15); NEUTROPHILS PERCENT AUTO 87 % (41-73); Platelet Count 150 K/mm3 (150-400); RDW Coefficient Variation 16.3 % (11.7-14.2); White Blood Cell Count 6.91 K/mm3 (4.00-11.30)
[2017-08-24 20:07] LABS: Calcium, Blood 7.3 mg/dL (8.5-10.1); Creatinine, Blood 6.96 mg/dL (0.60-1.20); Potassium, Blood 5.1 mmol/L (3.5-5.5)
[2017-08-24 20:11] LABS: Prothrombin Time Results 10.4 Sec (9.7-11.5)
[2017-08-25 00:13] LABS: Hematocrit 24.3 % (37.0-53.0); Hemoglobin 7.4 g/dL (13.5-17.5); Mean Corpuscular HGB 30.2 pg (26.0-34.0); Mean Corpuscular HGB Conc 30.5 g/dL (31.5-36.5); Mean Corpuscular Volume 99 fL (80-100); Mean Platelet Volume 10.7 fL (9.1-12.4); Platelet Count 149 K/mm3 (150-400); RDW Coefficient Variation 16.4 % (11.7-14.2); RDW Standard Deviation 59.4 fL (35.1-46.3); Red Blood Cell Count 2.45 M/mm3 (4.30-5.90); White Blood Cell Count 7.51 K/mm3 (4.00-11.30)
[2017-08-25 08:08] LABS: BASOPHILS ABSOLUTE AUTO 0.01 K/mm3 (0.00-0.23); BASOPHILS PERCENT AUTO 0 % (0-2); EOSINOPHILS ABSOLUTE AUTO 0.01 K/mm3 (0.00-0.68); EOSINOPHILS PERCENT AUTO 0 % (0-6); Hematocrit 25.1 % (37.0-53.0); Hemoglobin 7.6 g/dL (13.5-17.5); IMMATURE GRAN ABSOLUTE AUTO 0.04 K/mm3 (0.00-0.10); IMMATURE GRAN PERCENT AUTO 0 % (0-1); LYMPHOCYTES ABSOLUTE AUTO 0.45 K/mm3 (0.84-5.20); LYMPHOCYTES PERCENT AUTO 5 % (21-46); MONOCYTES PERCENT AUTO 5 % (4-13); Mean Corpuscular HGB 29.9 pg (26.0-34.0); Mean Corpuscular HGB Conc 30.3 g/dL (31.5-36.5); Mean Corpuscular Volume 99 fL (80-100); Mean Platelet Volume 11.5 fL (9.1-12.4); NEUTROPHILS ABSOLUTE AUTO 8.38 K/mm3 (1.96-9.15); NEUTROPHILS PERCENT AUTO 89 % (41-73); Platelet Count 146 K/mm3 (150-400); RDW Coefficient Variation 17.1 % (11.7-14.2); RDW Standard Deviation 60.9 fL (35.1-46.3); Red Blood Cell Count 2.54 M/mm3 (4.30-5.90); White Blood Cell Count 9.39 K/mm3 (4.00-11.30)
[2017-08-25 08:20] LABS: Albumin, Blood 2.1 g/dL (3.4-5.0); Anion Gap 12 mmol/L (6-16); Blood Urea Nitrogen 63 mg/dL (8-24); Bun/Creatinine Ratio 8.7 (12.0-20.0); CO2, Blood 21 mmol/L (21-32); Calcium, Blood 6.6 mg/dL (8.5-10.1); Chloride, Blood 106 mmol/L (98-108); Creatinine, Blood 7.21 mg/dL (0.60-1.20); Glomerular Filtration Rate 8 (60-); Glucose, Blood 96 mg/dL (70-99); Magnesium, Blood 2.4 mg/dL (1.6-2.4); Potassium, Blood 4.9 mmol/L (3.5-5.5); Sodium, Blood 139 mmol/L (136-145)
[2017-08-25 09:19] LABS: Phosphorus, Blood 8.4 mg/dL (2.5-4.9)
[2017-08-25 13:10] LABS: Hematocrit 24.6 % (37.0-53.0); Hemoglobin 7.8 g/dL (13.5-17.5)
[2017-08-25 18:48] LABS: Hematocrit 25.2 % (37.0-53.0); Hemoglobin 8.1 g/dL (13.5-17.5)
[2017-08-26 01:09] LABS: Hematocrit 22.1 % (37.0-53.0); Hemoglobin 7.1 g/dL (13.5-17.5)
[2017-08-26 16:57] LABS: Hematocrit 29.7 % (37.0-53.0); Hemoglobin 9.7 g/dL (13.5-17.5)
[2017-08-27 03:53] LABS: Hematocrit 29.2 % (37.0-53.0); Hemoglobin 9.2 g/dL (13.5-17.5)
[2017-08-27 04:10] LABS: Albumin, Blood 2.4 g/dL (3.4-5.0); Anion Gap 9 mmol/L (6-16); Blood Urea Nitrogen 43 mg/dL (8-24); Bun/Creatinine Ratio 8.5 (12.0-20.0); CO2, Blood 29 mmol/L (21-32); Chloride, Blood 100 mmol/L (98-108); Creatinine, Blood 5.04 mg/dL (0.60-1.20); Glomerular Filtration Rate 12 (60-); Glucose, Blood 78 mg/dL (70-99); Magnesium, Blood 2.1 mg/dL (1.6-2.4); Potassium, Blood 4.4 mmol/L (3.5-5.5); Sodium, Blood 138 mmol/L (136-145)
[2017-08-27 04:15] LABS: Phosphorus, Blood 5.3 mg/dL (2.5-4.9)
[2017-08-28 05:33] LABS: Hematocrit 30.4 % (37.0-53.0); Hemoglobin 9.7 g/dL (13.5-17.5); Mean Corpuscular HGB 30.9 pg (26.0-34.0); Mean Corpuscular HGB Conc 31.9 g/dL (31.5-36.5); Mean Corpuscular Volume 97 fL (80-100); Mean Platelet Volume 10.9 fL (9.1-12.4); Platelet Count 119 K/mm3 (150-400); RDW Coefficient Variation 16.6 % (11.7-14.2); RDW Standard Deviation 57.6 fL (35.1-46.3); Red Blood Cell Count 3.14 M/mm3 (4.30-5.90); White Blood Cell Count 9.85 K/mm3 (4.00-11.30)
[2017-08-28 05:47] LABS: Albumin, Blood 2.5 g/dL (3.4-5.0); Anion Gap 9 mmol/L (6-16); Blood Urea Nitrogen 54 mg/dL (8-24); Bun/Creatinine Ratio 9.1 (12.0-20.0); CO2, Blood 25 mmol/L (21-32); Calcium, Blood 7.4 mg/dL (8.5-10.1); Chloride, Blood 99 mmol/L (98-108); Creatinine, Blood 5.96 mg/dL (0.60-1.20); Glomerular Filtration Rate 10 (60-); Glucose, Blood 105 mg/dL (70-99); Magnesium, Blood 2.2 mg/dL (1.6-2.4); Phosphorus, Blood 4.8 mg/dL (2.5-4.9); Potassium, Blood 4.6 mmol/L (3.5-5.5); Sodium, Blood 133 mmol/L (136-145)
== END 2017-08-28 13:31 | DRG 604 ==
LOC: ER 17:34 → MEDS 17:35 → ICUW 08-25 03:20 → MEDS 08-25 07:47 → ICUW 08-25 07:47 → MEDS 08-27 11:52
PROVIDERS: Emergency Medicine; Internal Medicine; Internal Medicine Nephrology
PROC: 30233N1 Transfusion of Nonautologous Red Blood Cells into Peripheral Vein, Percutaneous Approach (ICD-10-PCS; principal; 2017-08-25)
PROC: 5A1D70Z Performance of Urinary Filtration, Intermittent, Less than 6 Hours Per Day (ICD-10-PCS; 2017-08-25)
DX: S70.12XA Contusion of left thigh, initial encounter (principal); G92 Toxic encephalopathy; N18.6 End stage renal disease; D62 Acute posthemorrhagic anemia; I12.0 Hypertensive chronic kidney disease with stage 5 chronic kidney disease or end stage renal disease; E87.1 Hypo-osmolality and hyponatremia; K76.6 Portal hypertension; T40.2X1A Poisoning by other opioids, accidental (unintentional), initial encounter; I95.2 Hypotension due to drugs; T40.4X1A Poisoning by other synthetic narcotics, accidental (unintentional), initial encounter; I95.89 Other hypotension; E86.9 Volume depletion, unspecified; G25.3 Myoclonus; J44.9 Chronic obstructive pulmonary disease, unspecified; E11.22 Type 2 diabetes mellitus with diabetic chronic kidney disease; D63.1 Anemia in chronic kidney disease; I48.2 Chronic atrial fibrillation; K74.60 Unspecified cirrhosis of liver; I25.10 Atherosclerotic heart disease of native coronary artery without angina pectoris; K21.9 Gastro-esophageal reflux disease without esophagitis; I73.9 Peripheral vascular disease, unspecified; N40.0 Benign prostatic hyperplasia without lower urinary tract symptoms; G25.81 Restless legs syndrome; F41.9 Anxiety disorder, unspecified; F32.9 Major depressive disorder, single episode, unspecified; F17.210 Nicotine dependence, cigarettes, uncomplicated; Z99.2 Dependence on renal dialysis; Z99.3 Dependence on wheelchair; Z79.899 Other long term (current) drug therapy; Z79.01 Long term (current) use of anticoagulants; W18.30XA Fall on same level, unspecified, initial encounter; Y92.239 Unspecified place in hospital as the place of occurrence of the external cause; Y92.009 Unspecified place in unspecified non-institutional (private) residence as the place of occurrence of the external cause; E83.39 Other disorders of phosphorus metabolism; E88.09 Other disorders of plasma-protein metabolism, not elsewhere classified
CPT/HCPCS: 36415; 36430; 72192; 73700; 80048; 80069; 82947; 83735; 85014; 85018; 85025; 85027; 85610; 85730; 86850; 86900; 86901; 86923; 87070; 87081; 93308; 93321; 94640; 94760; 96361; 96374; 96375; 96376; 97110; 97162; 99285; G0378; G8978; G8979; J0881; J1170; J2310; J3010; J7030; J7040; J7120; P9016

== ENCOUNTER 2017-12-23 19:14 | Emergency (ER) | payer MEDICARE ==
[~2017-12-23] VITALS: Ht 182.9 cm; Wt 90.7 kg
[2017-12-23 19:57] LABS: BASOPHILS ABSOLUTE AUTO 0.07 K/mm3 (0.00-0.23); BASOPHILS PERCENT AUTO 1 % (0-2); EOSINOPHILS ABSOLUTE AUTO 0.14 K/mm3 (0.00-0.68); EOSINOPHILS PERCENT AUTO 1 % (0-6); Hematocrit 33.7 % (37.0-53.0); IMMATURE GRAN ABSOLUTE AUTO 0.04 K/mm3 (0.00-0.10); IMMATURE GRAN PERCENT AUTO 0 % (0-1); LYMPHOCYTES ABSOLUTE AUTO 1.21 K/mm3 (0.84-5.20); LYMPHOCYTES PERCENT AUTO 10 % (21-46); MONOCYTES ABSOLUTE AUTO 0.52 K/mm3 (0.16-1.47); MONOCYTES PERCENT AUTO 4 % (4-13); Mean Corpuscular HGB 30.2 pg (26.0-34.0); Mean Corpuscular HGB Conc 29.7 g/dL (31.5-36.5); Mean Corpuscular Volume 102 fL (80-100); Mean Platelet Volume 11.9 fL (9.1-12.4); NEUTROPHILS ABSOLUTE AUTO 10.31 K/mm3 (1.96-9.15); NEUTROPHILS PERCENT AUTO 84 % (41-73); Platelet Count 168 K/mm3 (150-400); RDW Coefficient Variation 16.8 % (11.7-14.2); RDW Standard Deviation 63.2 fL (35.1-46.3); Red Blood Cell Count 3.31 M/mm3 (4.30-5.90); White Blood Cell Count 12.29 K/mm3 (4.00-11.30)
[2017-12-23 20:08] LABS: International Normalized Ratio 0.96; Prothrombin Time Results 9.9 Sec (9.7-11.5)
[2017-12-23 20:09] LABS: Albumin, Blood 2.9 g/dL (3.4-5.0); Bilirubin, Total 0.4 mg/dL (0.1-1.0); Bun/Creatinine Ratio 8.7 (12.0-20.0); Calcium, Blood 7.8 mg/dL (8.5-10.1); Creatinine, Blood 7.39 mg/dL (0.60-1.20); Potassium, Blood 4.7 mmol/L (3.5-5.5); Total Protein, Blood 5.9 g/dL (6.4-8.2)
== END 2017-12-23 22:39 | disposition home or self-care (01) ==
LOC: ER 19:14
PROVIDERS: Emergency Medicine
DX: S61.216A Laceration without foreign body of right little finger without damage to nail, initial encounter (principal); I12.0 Hypertensive chronic kidney disease with stage 5 chronic kidney disease or end stage renal disease; N18.6 End stage renal disease; D64.9 Anemia, unspecified; K21.9 Gastro-esophageal reflux disease without esophagitis; Z88.6 Allergy status to analgesic agent; Z88.8 Allergy status to other drugs, medicaments and biological substances; Z79.899 Other long term (current) drug therapy; Z79.01 Long term (current) use of anticoagulants; W19.XXXA Unspecified fall, initial encounter
CPT/HCPCS: 70450; 72125; 80053; 85025; 85610; 99285-25

== ENCOUNTER 2018-03-21 15:01 | Observation (INO) | payer MEDICARE, OTHER ==
[~2018-03-21] VITALS: Ht 182.9 cm; Wt 92.1 kg
[~2018-03-21 15:01] MED LIST changes: +ACET325 PO; +Bactrim Ds Tab1 EACH PO; +CALC.25 PO; +CALCIUM ACETAT667 MG PO; +CLOP75 PO; +DOXY100 PO; +LEVSOD125 PO; +LEVSOD50 PO; +LEVSOD88 PO; +OXYC10TA19 PO; +PREG75 PO; +Requip0.5 MG PO; +UNNA-FLEX1 EACH TOP; +VITAMIN D32000 UNIT PO
[2018-03-21] MEDS ORDERED: ASPI81CH PO (15:38)
[2018-03-21] MEDS ORDERED: CHOL10002 PO (15:39)
[2018-03-21] MEDS ORDERED: Clonazepam0.5 MG PO (15:39)
[2018-03-21] MEDS ORDERED: CALCIUM ACETAT667 MG PO (15:39)
[2018-03-21] MEDS ORDERED: CLON.1 PO (15:40)
[2018-03-21] MEDS ORDERED: Plavix75 MG PO (15:40)
[2018-03-21 15:41] LABS: Source, Urine Clean Catch
[2018-03-21] MEDS ORDERED: CYAN1000I IM (15:41)
[2018-03-21] MEDS ORDERED: FOLI1 PO (15:42)
[2018-03-21] MEDS ORDERED: DULOXETINE HCL20 MG PO (15:42)
[2018-03-21] MEDS ORDERED: KAPSPARGO SPRIN50 MG PO (15:43)
[2018-03-21] MEDS ORDERED: LEVSOD88 PO (15:43)
[2018-03-21] MEDS ORDERED: FURO40 PO (15:43)
[2018-03-21] MEDS ORDERED: ROPI.25 PO (15:44)
[2018-03-21] MEDS ORDERED: ONDA4 PO (15:44)
[2018-03-21] MEDS ORDERED: TAMS.4ER PO (15:45)
[2018-03-21 15:53] LABS: BASOPHILS ABSOLUTE AUTO 0.04 K/mm3 (0.00-0.23); BASOPHILS PERCENT AUTO 0 % (0-2); EOSINOPHILS ABSOLUTE AUTO 0.05 K/mm3 (0.00-0.68); EOSINOPHILS PERCENT AUTO 0 % (0-6); Hematocrit 30.9 % (37.0-53.0); Hemoglobin 9.2 g/dL (13.5-17.5); IMMATURE GRAN ABSOLUTE AUTO 0.06 K/mm3 (0.00-0.10); IMMATURE GRAN PERCENT AUTO 1 % (0-1); LYMPHOCYTES ABSOLUTE AUTO 0.55 K/mm3 (0.84-5.20); LYMPHOCYTES PERCENT AUTO 4 % (21-46); MONOCYTES ABSOLUTE AUTO 0.44 K/mm3 (0.16-1.47); MONOCYTES PERCENT AUTO 4 % (4-13); Mean Corpuscular HGB 30.2 pg (26.0-34.0); Mean Corpuscular HGB Conc 29.8 g/dL (31.5-36.5); Mean Corpuscular Volume 101 fL (80-100); Mean Platelet Volume 11.4 fL (9.1-12.4); NEUTROPHILS ABSOLUTE AUTO 11.58 K/mm3 (1.96-9.15); NEUTROPHILS PERCENT AUTO 91 % (41-73); Platelet Count 210 K/mm3 (150-400); RDW Coefficient Variation 18.5 % (11.7-14.2); RDW Standard Deviation 68.4 fL (35.1-46.3); Red Blood Cell Count 3.05 M/mm3 (4.30-5.90); White Blood Cell Count 12.72 K/mm3 (4.00-11.30)
[2018-03-21 15:55] LABS: Bilirubin, Urine Neg (Neg); Blood, Urine 2+ (Neg); Glucose Qualitative, Urine Neg (Neg); Ketones, Urine Neg (Neg); Leukocyte Esterase, Urine 1+ (Neg); Nitrite, Urine Neg (Neg); Protein, Urine Neg (Neg); Specific Gravity, Urine 1.015 (1.003-1.022); Urobilinogen, Urine NORM (Normal)
[2018-03-21 16:03] LABS: Magnesium, Blood 3.2 mg/dL (1.6-2.4)
[2018-03-21 16:24] LABS: Albumin, Blood 2.4 g/dL (3.4-5.0); Albumin/Globulin Ratio 0.7 (0.8-1.8); Bilirubin, Total 0.7 mg/dL (0.1-1.0); Bun/Creatinine Ratio 8.9 (12.0-20.0); Calcium, Blood 7.4 mg/dL (8.5-10.1); Creatinine, Blood 7.31 mg/dL (0.60-1.20); Globulin, Blood 3.4 g/dL (2.2-4.0); Phosphorus, Blood 6.5 mg/dL (2.5-4.9); Potassium, Blood 7.4 mmol/L (3.5-5.5); Total Protein, Blood 5.8 g/dL (6.4-8.2)
[2018-03-21 17:04] LABS: Appearance, Urine Clear (Clear); Color, Urine Yellow (P-Yellow)
[2018-03-21 17:06] LABS: Bacteria Not Seen /hpf; Red Blood Cells, Urine Not Seen /hpf (0-2); Squamous Epithelial Cells Rare /hpf (Few); White Blood Cells, Urine Not Seen /hpf (0-5)
[2018-03-21] MEDS ORDERED: DOXY100 PO (22:23)
[2018-03-22 03:32] LABS: Hematocrit 29.1 % (37.0-53.0)
[2018-03-22 03:51] LABS: Magnesium, Blood 2.6 mg/dL (1.6-2.4)
[2018-03-22 04:08] LABS: Albumin, Blood 2.2 g/dL (3.4-5.0); Anion Gap 8 mmol/L (6-16); Blood Urea Nitrogen 41 mg/dL (8-24); Bun/Creatinine Ratio 7.8 (12.0-20.0); CO2, Blood 30 mmol/L (21-32); Calcium, Blood 7.4 mg/dL (8.5-10.1); Chloride, Blood 105 mmol/L (98-108); Creatinine, Blood 5.23 mg/dL (0.60-1.20); Glomerular Filtration Rate 12 (60-); Glucose, Blood 73 mg/dL (70-99); Phosphorus, Blood 5.6 mg/dL (2.5-4.9); Potassium, Blood 5.3 mmol/L (3.5-5.5); Sodium, Blood 143 mmol/L (136-145)
== END 2018-03-22 16:45 | disposition home or self-care (01) ==
LOC: ER 15:01 → ICUW 15:02
PROVIDERS: Internal Medicine; Internal Medicine Nephrology
DX: I12.0 Hypertensive chronic kidney disease with stage 5 chronic kidney disease or end stage renal disease (principal); N18.6 End stage renal disease; D63.1 Anemia in chronic kidney disease; E87.5 Hyperkalemia; E87.70 Fluid overload, unspecified; I48.2 Chronic atrial fibrillation; M19.90 Unspecified osteoarthritis, unspecified site; K21.9 Gastro-esophageal reflux disease without esophagitis; I48.91 Unspecified atrial fibrillation; D72.829 Elevated white blood cell count, unspecified; Z91.15 Patient's noncompliance with renal dialysis; Z88.8 Allergy status to other drugs, medicaments and biological substances; Z79.899 Other long term (current) drug therapy
CPT/HCPCS: 36415; 71046; 80048; 80053; 80069; 81001; 82947; 83036; 83735; 84100; 84132; 85014; 85018; 85025; 87081; 87493; 93005; 93010; 96365; 96372; 96375; 99285-25; G0257; G0378; J0610; J0881; J1815

== ENCOUNTER 2018-05-24 21:53 | Inpatient (IN) | payer MEDICARE ==
[~2018-05-24] VITALS: Ht 182.9 cm; Wt 88.5 kg
[~2018-05-24 21:53] MED LIST changes: +Clonazepam0.5 MG PO; +DULOXETINE HCL20 MG PO; +KAPSPARGO SPRIN50 MG PO; +ONDA4 PO; +Plavix75 MG PO
[2018-05-24 22:56] LABS: BASOPHILS ABSOLUTE AUTO 0.09 K/mm3 (0.00-0.23); BASOPHILS PERCENT AUTO 1 % (0-2); EOSINOPHILS ABSOLUTE AUTO 0.13 K/mm3 (0.00-0.68); EOSINOPHILS PERCENT AUTO 1 % (0-6); Hematocrit 37.4 % (37.0-53.0); Hemoglobin 11.1 g/dL (13.5-17.5); IMMATURE GRAN ABSOLUTE AUTO 0.08 K/mm3 (0.00-0.10); IMMATURE GRAN PERCENT AUTO 1 % (0-1); LYMPHOCYTES ABSOLUTE AUTO 0.87 K/mm3 (0.84-5.20); LYMPHOCYTES PERCENT AUTO 9 % (21-46); MONOCYTES ABSOLUTE AUTO 0.42 K/mm3 (0.16-1.47); MONOCYTES PERCENT AUTO 4 % (4-13); Mean Corpuscular HGB 29.3 pg (26.0-34.0); Mean Corpuscular HGB Conc 29.7 g/dL (31.5-36.5); Mean Corpuscular Volume 99 fL (80-100); Mean Platelet Volume 12.3 fL (9.1-12.4); NEUTROPHILS ABSOLUTE AUTO 8.04 K/mm3 (1.96-9.15); NEUTROPHILS PERCENT AUTO 84 % (41-73); Platelet Count 145 K/mm3 (150-400); RDW Coefficient Variation 15.4 % (11.7-14.2); RDW Standard Deviation 55.3 fL (35.1-46.3); Red Blood Cell Count 3.79 M/mm3 (4.30-5.90); White Blood Cell Count 9.63 K/mm3 (4.00-11.30)
[2018-05-24 23:13] LABS: Base Excess Venous -2.3 mmol/L; Bicarbonate Venous 21.8 mmol/L (24.0-30.0); PCO2 Venous 52.2 mmHg (38-42); PO2 Venous 48.2 mmHg (38-42); pH Blood Venous 7.28 (7.34-7.37)
[2018-05-24 23:19] LABS: Albumin/Globulin Ratio 0.9 (0.8-1.8); Bilirubin, Total 0.4 mg/dL (0.1-1.0); Bun/Creatinine Ratio 9.9 (12.0-20.0); Calcium, Blood 8.2 mg/dL (8.5-10.1); Creatinine, Blood 6.9 mg/dL (0.60-1.20); Globulin, Blood 3.2 g/dL (2.2-4.0); Potassium, Blood 4.7 mmol/L (3.5-5.5); Total Protein, Blood 6.2 g/dL (6.4-8.2); Troponin I 0.058 ng/mL (0.000-0.040)
[2018-05-24 23:22] LABS: Thyroid Stimulating Hormone 97.6 uIU/mL (0.360-4.800)
[2018-05-25 07:28] LABS: Hematocrit 41.7 % (37.0-53.0); Hemoglobin 11.8 g/dL (13.5-17.5); Mean Corpuscular HGB 28.7 pg (26.0-34.0); Mean Corpuscular HGB Conc 28.3 g/dL (31.5-36.5); Mean Platelet Volume 11.9 fL (9.1-12.4); Platelet Count 149 K/mm3 (150-400); RDW Coefficient Variation 15.5 % (11.7-14.2); RDW Standard Deviation 58.3 fL (35.1-46.3); Red Blood Cell Count 4.11 M/mm3 (4.30-5.90); White Blood Cell Count 9.53 K/mm3 (4.00-11.30)
[2018-05-25 08:01] LABS: Mean Corpuscular Volume 102 fL (80-100)
[2018-05-25 08:11] LABS: Free Thyroxine 0.59 ng/dL (0.70-1.60); Troponin I 0.053 ng/mL (0.000-0.040)
[2018-05-25 08:19] LABS: Albumin, Blood 3.1 g/dL (3.4-5.0); Albumin/Globulin Ratio 0.9 (0.8-1.8); Bilirubin, Total 0.5 mg/dL (0.1-1.0); Bun/Creatinine Ratio 10.2 (12.0-20.0); Calcium, Blood 8.4 mg/dL (8.5-10.1); Creatinine, Blood 7.06 mg/dL (0.60-1.20); Globulin, Blood 3.6 g/dL (2.2-4.0); Potassium, Blood 5.5 mmol/L (3.5-5.5); Total Protein, Blood 6.7 g/dL (6.4-8.2)
[2018-05-25 15:24] LABS: Troponin I 0.044 ng/mL (0.000-0.040)
[2018-05-25] MEDS ORDERED: OXYC10ER PO (17:05)
[2018-05-25 18:48] LABS: Adenovirus Not Detected (NOT DETECT); Bordetella pertussis Not Detected (NOT DETECT); Chlamydophila pneumoniae Not Detected (NOT DETECT); Coronavirus 229E Not Detected (NOT DETECT); Coronavirus HKU1 Not Detected (NOT DETECT); Coronavirus NL63 Not Detected (NOT DETECT); Coronavirus OC43 Not Detected (NOT DETECT); Human Metapneumovirus Not Detected (NOT DETECT); Human Rhinovirus/Enterovirus Not Detected (NOT DETECT); Influenza A Not Detected (NOT DETECT); Influenza A/2009-H1 Not Detected (NOT DETECT); Influenza A/H1 Not Detected (NOT DETECT); Influenza A/H3 Not Detected (NOT DETECT); Influenza B Not Detected (NOT DETECT); Mycoplasma pneumoniae Not Detected (NOT DETECT); Parainfluenza Virus 1 Not Detected (NOT DETECT); Parainfluenza Virus 2 Not Detected (NOT DETECT); Parainfluenza Virus 3 Not Detected (NOT DETECT); Parainfluenza Virus 4 Not Detected (NOT DETECT); Respiratory Syncytial Virus Not Detected (NOT DETECT)
[2018-05-26 06:03] LABS: Hematocrit 33.6 % (37.0-53.0); Hemoglobin 10.1 g/dL (13.5-17.5)
[2018-05-26 06:21] LABS: Albumin, Blood 2.7 g/dL (3.4-5.0); Anion Gap 8 mmol/L (6-16); Blood Urea Nitrogen 52 mg/dL (8-24); Bun/Creatinine Ratio 9.2 (12.0-20.0); CO2, Blood 30 mmol/L (21-32); Calcium, Blood 7.9 mg/dL (8.5-10.1); Chloride, Blood 106 mmol/L (98-108); Creatinine, Blood 5.65 mg/dL (0.60-1.20); Glomerular Filtration Rate 11 (60-); Glucose, Blood 77 mg/dL (70-99); Magnesium, Blood 2.4 mg/dL (1.6-2.4); Phosphorus, Blood 4.4 mg/dL (2.5-4.9); Potassium, Blood 4.6 mmol/L (3.5-5.5); Sodium, Blood 144 mmol/L (136-145)
--- NOTE | 2018-05-26 06:31 | NUR ---
SUMMARY: NO ACUTE CHANGE TONIGHT, VSS. PT ABLE TO SLEEP. NO ACUTE SAFETY CONCERNS, WILL REPORT TO DAY RN
--- NOTE | 2018-05-26 09:51 | NUR ---
SMOKING PATIENT HAS BEEN OUTSIDE SMOKING X 3 SINCE THE BEGINNING OF MY SHIFT. ADVISED PATIENT THAT HE IS HERE FOR MEDICAL TREATMENT AND NEEDS TO STAY IN HIS ROOM. HE THEN AGAIN LEFT AND RETURNED 30 MINUTES LATER AFTER GOING OUTSIDE TO SMOKE. THE PATIENT WAS ALSO EDUCATED ABOUT HIS ISOLATION STATUS.
--- NOTE | 2018-05-26 16:02 | NUR ---
poke with medical records at [facility] to request most current medication list. faxed request to [facility] at [phone]. spoke with [facility] and also requested most current patint med rec
--- NOTE | 2018-05-26 18:21 | NUR ---
summary patient up in wheelchair and out of room frequently, patient is hoping to discharge to home in the morning. have not received fax list of patients medications at this time
[2018-05-27 05:20] LABS: Hematocrit 32.8 % (37.0-53.0); Hemoglobin 9.9 g/dL (13.5-17.5)
[2018-05-27 05:53] LABS: Magnesium, Blood 2.5 mg/dL (1.6-2.4)
[2018-05-27 05:59] LABS: Albumin, Blood 2.7 g/dL (3.4-5.0); Anion Gap 9 mmol/L (6-16); Blood Urea Nitrogen 69 mg/dL (8-24); Bun/Creatinine Ratio 10.1 (12.0-20.0); CO2, Blood 27 mmol/L (21-32); Calcium, Blood 7.8 mg/dL (8.5-10.1); Chloride, Blood 107 mmol/L (98-108); Creatinine, Blood 6.83 mg/dL (0.60-1.20); Glomerular Filtration Rate 9 (60-); Glucose, Blood 72 mg/dL (70-99); Phosphorus, Blood 6.3 mg/dL (2.5-4.9); Potassium, Blood 5.5 mmol/L (3.5-5.5); Sodium, Blood 143 mmol/L (136-145)
--- NOTE | 2018-05-27 06:18 | NUR ---
PT HAD NO ACUTE CHANGES T/O NIGHT; SATS >90% ON RA. BP NOTED ELEVATED THIS AM, PT DENIED SOB. PT DOES HAVE OCC NON PROD COUGH. PT REPOSITIONING SELF IN BED, IS USING CALL LIGHT FOR ASSISTANCE, WILL CONT TO MONITOR UNTIL REP GIVEN TO ONCOMING RN.
--- NOTE | 2018-05-27 09:12 | NUR ---
PATIENT TO DIALYSIS
--- NOTE | 2018-05-27 11:40 | NUR ---
Pt. is in dialysis and reports doing well encouraged pt and prayed or him.
--- NOTE | 2018-05-27 11:43 | NUR ---
DIALYSIS OFF EARLY, HAS TO GO THE BATH ROOM FOR BM. TALKED HIM INTO 30 MIN LONGER THEN HE WANTE. AFTER HE GOT OFF HE SAID HE WAS GOING OUT SMOKING FIRST.
--- NOTE | 2018-05-27 12:04 | NUR ---
returned to room from dialysis
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
[2018-05-27] MEDS ORDERED: ELIQUIS2.5 MG PO (14:11)
[2018-05-27] MEDS ORDERED: LEVFLO500 PO (14:12)
[2018-05-27] MEDS ORDERED: PREG75 PO (14:12)
--- NOTE | 2018-05-27 14:59 | NUR ---
PATIENT CONCERNED AND TELLS ME HE IS RETURNING TO [facility] AND THE POWER IS OUT. JANET JACK RN CONFIRMED THAT THERE IS POWER AT [facility]. DISCHARGE INSTRUCTIONS REVIEWED WITH PATIENT AND QUESTIONS ANSWERED. TRANSPORTATION ARRANGED WITH [facility] WHO WILL PICK PATIENT UP AT APPROXIMENTLY 1500
--- NOTE | 2018-05-27 15:08 | NUR ---
DISCHARGED WITH [facility]SPORT TO RETURN TO [facility]
== END 2018-05-27 15:09 | disposition home or self-care (01) | DRG 682 ==
LOC: ER 21:53 → ERHOLD 21:54 → ER 21:54 → ERHOLD 21:54 → SURS 05-25 01:54
PROVIDERS: Emergency Medicine; Internal Medicine Nephrology; ADMIT Internal Medicine
PROC: 5A1D70Z Performance of Urinary Filtration, Intermittent, Less than 6 Hours Per Day (ICD-10-PCS; principal; 2018-05-25)
PROC: 5A1D70Z Performance of Urinary Filtration, Intermittent, Less than 6 Hours Per Day (ICD-10-PCS; 2018-05-25)
DX: I12.0 Hypertensive chronic kidney disease with stage 5 chronic kidney disease or end stage renal disease (principal); N18.6 End stage renal disease; J96.01 Acute respiratory failure with hypoxia; E87.0 Hyperosmolality and hypernatremia; E03.9 Hypothyroidism, unspecified; E04.1 Nontoxic single thyroid nodule; K70.30 Alcoholic cirrhosis of liver without ascites; D63.1 Anemia in chronic kidney disease; N40.0 Benign prostatic hyperplasia without lower urinary tract symptoms; E87.5 Hyperkalemia; E88.09 Other disorders of plasma-protein metabolism, not elsewhere classified; G25.81 Restless legs syndrome; J40 Bronchitis, not specified as acute or chronic; I48.2 Chronic atrial fibrillation; J44.9 Chronic obstructive pulmonary disease, unspecified; K21.9 Gastro-esophageal reflux disease without esophagitis; E21.3 Hyperparathyroidism, unspecified; M19.90 Unspecified osteoarthritis, unspecified site; F17.200 Nicotine dependence, unspecified, uncomplicated; Z99.2 Dependence on renal dialysis; Z79.01 Long term (current) use of anticoagulants; Z79.82 Long term (current) use of aspirin; Z79.899 Other long term (current) drug therapy; Z98.84 Bariatric surgery status
CPT/HCPCS: 36415; 71046; 80053; 80069; 82140; 82550; 82803; 83690; 83735; 83880; 84145; 84439; 84443; 84484; 85014; 85018; 85025; 85027; 87081; 87147; 87486; 87581; 87633; 87798; 93005; 93010; 94640; 94760; 96374; 96375; 96376; 99285-25; J1650; J1940; J1956; J2405; J2930

== ENCOUNTER 2018-06-22 17:38 | Emergency (ER) | payer MEDICARE, OTHER ==
[~2018-06-22] VITALS: Ht 182.9 cm; Wt 88.5 kg
[~2018-06-22 17:38] MED LIST changes: +CEPH500 PO; -DULOXETINE HCL20 MG PO; -KAPSPARGO SPRIN50 MG PO; +LEVFLO500 PO; -ONDA4 PO; +ONDA4ODT SL; +Synthroid112 MCG PO; +Vibramycin100 MG PO
[2018-06-22] MEDS ORDERED: CLON.5 PO (17:58)
[2018-06-22] MEDS ORDERED: ENEMA BOTTLE1 EACH PR (18:39)
[2018-06-22] MEDS ORDERED: Pepto-Bism525 MG/15 PO (18:40)
[2018-06-22] MEDS ORDERED: BISA10S PR (18:41)
[2018-06-22] MEDS ORDERED: Milk Of Ma400 MG/5 M PO (18:42)
[2018-06-22] MEDS ORDERED: TRIPLE ANTIBIO1 EACH TOP (18:43)
[2018-06-22] MEDS ORDERED: Inzo Antifun141.7 GM TOP (18:51)
[2018-06-22] MEDS ORDERED: PREG75 PO (19:24)
[2018-06-22] MEDS ORDERED: CLOP75 PO (19:27)
[2018-06-22] MEDS ORDERED: Aspirin EC81 MG PO (19:27)
[2018-06-22] MEDS ORDERED: DULOXETINE HCL20 MG PO (19:28)
[2018-06-22] MEDS ORDERED: AMPHOJEL PO (19:33)
[2018-06-22] MEDS ORDERED: METO50ER PO (19:35)
[2018-06-22] MEDS ORDERED: CHOL10002 PO (19:36)
[2018-06-22] MEDS ORDERED: ROPI1 PO (19:36)
[2018-06-22] MEDS ORDERED: ELIQUIS2.5 MG PO (20:08)
[2018-06-22] MEDS ORDERED: ALUM320SU PO (20:10)
== END 2018-06-22 21:36 | disposition home or self-care (01) ==
LOC: ER 17:38
DX: S00.83XA Contusion of other part of head, initial encounter (principal); S40.011A Contusion of right shoulder, initial encounter; S80.01XA Contusion of right knee, initial encounter; S60.311A Abrasion of right thumb, initial encounter; W17.89XA Other fall from one level to another, initial encounter; Z88.8 Allergy status to other drugs, medicaments and biological substances; Z79.899 Other long term (current) drug therapy; Z79.82 Long term (current) use of aspirin; Z79.891 Long term (current) use of opiate analgesic; I12.9 Hypertensive chronic kidney disease with stage 1 through stage 4 chronic kidney disease, or unspecified chronic kidney disease; N18.9 Chronic kidney disease, unspecified; D64.9 Anemia, unspecified; F17.210 Nicotine dependence, cigarettes, uncomplicated
CPT/HCPCS: 70450; 73030; 73562-RT; 99284-25

== ENCOUNTER 2018-07-04 11:44 | Inpatient (IN) | payer MEDICARE, OTHER ==
[~2018-07-04] VITALS: Ht 175.3 cm; Wt 83.9 kg
[~2018-07-04 11:44] MED LIST changes: +ALUM320SU PO; +AMPHOJEL PO; +Aspirin EC81 MG PO; +BISA10S PR; +DULOXETINE HCL20 MG PO; +ELIQUIS2.5 MG PO; +ENEMA BOTTLE1 EACH PR; +Inzo Antifun141.7 GM TOP; +Milk Of Ma400 MG/5 M PO; +PREG150 PO; +Pepto-Bism525 MG/15 PO; +TRIPLE ANTIBIO1 EACH TOP
[2018-07-04] MEDS ORDERED: FURO40 PO (11:57)
[2018-07-04] MEDS ORDERED: METO50ER PO (11:58)
[2018-07-04] MEDS ORDERED: FOLI1 PO (11:59)
[2018-07-04] MEDS ORDERED: PREG150 PO (12:00)
[2018-07-04] MEDS ORDERED: Ropinirole HCl1 MG PO (12:00)
[2018-07-04] MEDS ORDERED: Vitamin D2000 UNIT PO (12:00)
[2018-07-04] MEDS ORDERED: CLON.1 PO (12:01)
[2018-07-04] MEDS ORDERED: CALCIUM ACETAT667 MG PO (12:01)
[2018-07-04] MEDS ORDERED: TAMS.4ER PO (12:11)
[2018-07-04] MEDS ORDERED: BISA10S PR (12:11)
[2018-07-04] MEDS ORDERED: Aluminum H320 MG/5 M PO (12:11)
[2018-07-04] MEDS ORDERED: CLON.5 PO (12:12)
[2018-07-04 12:21] LABS: BASOPHILS ABSOLUTE AUTO 0.05 K/mm3 (0.00-0.23); BASOPHILS PERCENT AUTO 1 % (0-2); EOSINOPHILS ABSOLUTE AUTO 0.07 K/mm3 (0.00-0.68); EOSINOPHILS PERCENT AUTO 1 % (0-6); Hematocrit 34.7 % (37.0-53.0); Hemoglobin 10.1 g/dL (13.5-17.5); IMMATURE GRAN ABSOLUTE AUTO 0.04 K/mm3 (0.00-0.10); IMMATURE GRAN PERCENT AUTO 1 % (0-1); LYMPHOCYTES ABSOLUTE AUTO 0.75 K/mm3 (0.84-5.20); LYMPHOCYTES PERCENT AUTO 14 % (21-46); MONOCYTES ABSOLUTE AUTO 0.38 K/mm3 (0.16-1.47); MONOCYTES PERCENT AUTO 7 % (4-13); Mean Corpuscular HGB 28.9 pg (26.0-34.0); Mean Corpuscular HGB Conc 29.1 g/dL (31.5-36.5); Mean Corpuscular Volume 99 fL (80-100); Mean Platelet Volume 11.8 fL (9.1-12.4); NEUTROPHILS ABSOLUTE AUTO 4.19 K/mm3 (1.96-9.15); NEUTROPHILS PERCENT AUTO 77 % (41-73); Platelet Count 229 K/mm3 (150-400); RDW Coefficient Variation 16.9 % (11.7-14.2); RDW Standard Deviation 61.7 fL (35.1-46.3); White Blood Cell Count 5.48 K/mm3 (4.00-11.30)
[2018-07-04] MEDS ORDERED: Milk Of Ma400 MG/5 M PO (12:26)
[2018-07-04] MEDS ORDERED: ROPI.25 PO (12:27)
[2018-07-04] MEDS ORDERED: ONDA4ODT PO (12:28)
[2018-07-04] MEDS ORDERED: OXYC10TA19 PO (12:28)
[2018-07-04] MEDS ORDERED: Pepto-Bism525 MG/15 PO (12:30)
[2018-07-04] MEDS ORDERED: ENEMA BOTTLE1 EACH PR (12:30)
[2018-07-04 12:45] LABS: Alanine Aminotransfer (ALT/SGP 9 U/L (12-78); Albumin, Blood 2.8 g/dL (3.4-5.0); Albumin/Globulin Ratio 0.9 (0.8-1.8); Alk Phos 74 U/L (50-136); Anion Gap 9 mmol/L (6-16); Aspartate Aminotrans (AST/SGOT 20 U/L (12-37); Bilirubin, Total 0.5 mg/dL (0.1-1.0); Blood Urea Nitrogen 42 mg/dL (8-24); Bun/Creatinine Ratio 9.8 (12.0-20.0); CO2, Blood 34 mmol/L (21-32); Calcium, Blood 8.5 mg/dL (8.5-10.1); Chloride, Blood 97 mmol/L (98-108); Creatinine, Blood 4.27 mg/dL (0.60-1.20); Ethanol (Alcohol), Blood, Med <3 mg/dL; Globulin, Blood 3.1 g/dL (2.2-4.0); Glomerular Filtration Rate 15 (60-); Glucose, Blood 79 mg/dL (70-99); Potassium, Blood 3.6 mmol/L (3.5-5.5); Sodium, Blood 140 mmol/L (136-145); Total Protein, Blood 5.9 g/dL (6.4-8.2); Troponin I 0.041 ng/mL (0.000-0.040)
[2018-07-04 12:49] LABS: PCO2 Venous 51.5 mmHg (38-42); pH Blood Venous 7.44 (7.34-7.37)
[2018-07-04 13:00] LABS: Source, Urine Catheter
[2018-07-04 13:11] LABS: Bilirubin, Urine Neg (Neg); Blood, Urine 5+ (Neg); Glucose Qualitative, Urine Neg (Neg); Ketones, Urine Neg (Neg); Leukocyte Esterase, Urine Neg (Neg); Nitrite, Urine Neg (Neg); Protein, Urine 2+ (Neg); Specific Gravity, Urine 1.015 (1.003-1.022); Urobilinogen, Urine NORM (Normal)
[2018-07-04 13:20] LABS: Color, Urine Pale Yellow (P-Yellow)
[2018-07-04 13:21] LABS: Appearance, Urine Clear (Clear)
[2018-07-04 13:24] LABS: Bacteria Few /hpf; Red Blood Cells, Urine 25-50 /hpf (0-2); Squamous Epithelial Cells Rare /hpf (Few); White Blood Cells, Urine 0-2 /hpf (0-5)
[2018-07-04 15:43] LABS: U Amphetamine Screen Not Detected; U Barbituate Screen Not Detected; U Benzodiazapine Screen Not Detected; U Buprenorphine Screen Not Detected; U Cannabinoids Screen DETECTED; U Cocaine Screen Not Detected; U Methadone Screen Not Detected; U Methamphetamine Screen Not Detected; U Opiates Screen Not Detected; U Oxycodone Screen Not Detected; U Phencyclidine Screen Not Detected; U Propoxyphene Screen Not Detected
--- NOTE | 2018-07-04 18:15 | NUR ---
SPOKE WITH DR. BENITO ABOUT THE PATIENT'S DEMEANOR AT THIS TIME. HE CURRENTLY IS VERY DAZED AND OUT OF IT. TOOK PATIENT'S BLOOD SUGAR AND HE IS AT 69. GAVE HIM JUICE TO DRINK TO SEE IF THIS WOULD HELP. HE TOOK 2 SIPS AND PUT IT DOWN. PATIENT'S BLOOD SUGAR DOES NOT SEEM TO BE THE ISSUE CAUSING HIS DAZED DEMEANOR. DR. BENITO ORDERED TO HOLD MEDS THAT WERE DUE AND ASSESS FOR CHANGES, THEN HE MAY HAVE HIS MEDICATIONS AT HIS 2100 MEDICATION PASS OR HIS MORNING MEDICATIONS.
--- NOTE | 2018-07-04 18:35 | NUR ---
SHIFT SUMMARY PATIENT BROUGHT UP FROM ER IN THE 1700 HOUR. PATIENT IS VERY DAZED AND HAS BEEN BROUGHT FROM [facility]. ASSESSMENT AND FULL ADMISSION DONE AND IN THE COMPUTER. SPOKE WITH DR. BENITO ABOUT THE PATIENT'S CURRENT CONDITION AND HAD A DOCTOR HOLD FOR HIS MEDICATIONS THAT WERE DUE. WILL ASSESS FOR ANY CHANGES. PATIENT BLOOD SUGAR WAS 69, HE WAS GIVEN A DRINK OF JUICE BUT HE WENT BACK TO SLEEP.
--- NOTE | 2018-07-05 00:09 | NUR ---
DR FERNÁNDEZ IN TO SEE PATIENT. REPORTS HE WILL HAVE DIALYSIS IN AM.
--- NOTE | 2018-07-05 00:14 | NUR ---
PATIENT BP 176/93 AND SCHEDULED CATAPRES GIVEN 0.1 MG. PATIENT BP 136/68 WHEN REASSESSED. CALL LIGHT IN REACH.
--- NOTE | 2018-07-05 03:12 | NUR ---
SHIFT SUMMARY PATIENT HAD NO ACUTE CHANGES OBSERVED DURING THE SHIFT. SLEEPING BUT AROUSABLE. DR FERNÁNDEZ IN TO SEE PATIENT AND REPORTS HE WILL HAVE DIALYSIS IN A.M. PATIENT IS AXO TO SELF. TOOK EVENING MEDICATION WITH WATER. BP ELEVATED AT 176/93 AND REASSESSED AT 136/68 AFTER SCHEDULE CATAPRES 0.1MG GIVEN. PATIENT FROM [facility]. PIV INTACT. FRAMING MECHANIC REPORTS NSR 62 W/PVC. [facility] AND DRAINING. CBG 69 AND PATIENT WOULD ONLY DRINK <4 OZ OF OJ. CALL LIGHT IN REACH. BED IN LOWEST POSITION. WILL CONTINUE TO MONITOR UNTIL DAY SHIFT NURSE ASSUMES CARE.
--- NOTE | 2018-07-05 03:49 | NUR ---
PATIENT MENTATION HAS IMPROVED AND ABLE TO HOLD A CONVERSATION. PATIENT REMEMBERS DR FERNÁNDEZ SEEING HIM. PATIENT ABLE TO DRINK MORE APPLE JUICE. PRODUCTIVE COUGH. CALL LIGHT IN REACH.
[2018-07-05 05:11] LABS: BASOPHILS ABSOLUTE AUTO 0.05 K/mm3 (0.00-0.23); BASOPHILS PERCENT AUTO 1 % (0-2); EOSINOPHILS ABSOLUTE AUTO 0.09 K/mm3 (0.00-0.68); EOSINOPHILS PERCENT AUTO 1 % (0-6); IMMATURE GRAN ABSOLUTE AUTO 0.04 K/mm3 (0.00-0.10); IMMATURE GRAN PERCENT AUTO 1 % (0-1); LYMPHOCYTES ABSOLUTE AUTO 0.96 K/mm3 (0.84-5.20); LYMPHOCYTES PERCENT AUTO 14 % (21-46); MONOCYTES ABSOLUTE AUTO 0.43 K/mm3 (0.16-1.47); MONOCYTES PERCENT AUTO 6 % (4-13); Mean Corpuscular HGB 29.6 pg (26.0-34.0); Mean Corpuscular HGB Conc 29.4 g/dL (31.5-36.5); Mean Corpuscular Volume 101 fL (80-100); Mean Platelet Volume 11.5 fL (9.1-12.4); NEUTROPHILS ABSOLUTE AUTO 5.33 K/mm3 (1.96-9.15); NEUTROPHILS PERCENT AUTO 77 % (41-73); Platelet Count 230 K/mm3 (150-400); RDW Coefficient Variation 17.1 % (11.7-14.2); RDW Standard Deviation 63.2 fL (35.1-46.3); Red Blood Cell Count 3.38 M/mm3 (4.30-5.90)
[2018-07-05 05:32] LABS: Alanine Aminotransfer (ALT/SGP 13 U/L (12-78); Albumin, Blood 2.6 g/dL (3.4-5.0); Albumin/Globulin Ratio 0.8 (0.8-1.8); Alk Phos 76 U/L (50-136); Anion Gap 9 mmol/L (6-16); Aspartate Aminotrans (AST/SGOT 13 U/L (12-37); Bilirubin, Total 0.5 mg/dL (0.1-1.0); Blood Urea Nitrogen 48 mg/dL (8-24); Bun/Creatinine Ratio 8.9 (12.0-20.0); CO2, Blood 32 mmol/L (21-32); Calcium, Blood 8.4 mg/dL (8.5-10.1); Chloride, Blood 100 mmol/L (98-108); Creatinine, Blood 5.38 mg/dL (0.60-1.20); Globulin, Blood 3.1 g/dL (2.2-4.0); Glomerular Filtration Rate 11 (60-); Glucose, Blood 79 mg/dL (70-99); Magnesium, Blood 2.3 mg/dL (1.6-2.4); Phosphorus, Blood 4.2 mg/dL (2.5-4.9); Potassium, Blood 3.5 mmol/L (3.5-5.5); Sodium, Blood 141 mmol/L (136-145); Total Protein, Blood 5.7 g/dL (6.4-8.2)
--- NOTE | 2018-07-05 09:34 | NUR ---
SPOKE WITH DR. BENITO ABOUT PATIENT SUSTAINING 160'S ON TELE. PATIENT IS CURRENTLY IN DIALYSIS AND DR. BENITO IS GOING TO BEDSIDE TO ASSESS PATIENT. STAT EKG ORDERED.
--- NOTE | 2018-07-05 09:39 | NUR ---
NENITA CARR FROM PCU TO ADMINISTER IV METOPROLOL IN DIALYSIS.
--- NOTE | 2018-07-05 10:15 | NUR ---
PATIENT TRANSFERRING FROM DIALYSIS TO ICU 15. REPORT CALLED TO NENITA WELCH.
[2018-07-05 10:35] LABS: Percent Saturation 21.2 % (20.0-50.0)
--- NOTE | 2018-07-05 11:10 | NUR ---
ASSUMED CARE REPORT FROM NENITA JONES WHO HAD CARED FOR PATIENT WHILE IN 327. PATIENT WAS IN DIALYSIS AT THE TIME AND BECAME TACHYCARDIC. EKG SHOWED AFIB WITH RVR AT 169 AT 9:[address] BENITO ORDERED DIALYSIS STOPPED AND PATIENT TRANSFERRED TO PCU FOR CARDIZEM GTT. PATIENT RETRIEVED FROM DIALYSIS BY THIS RN AND TAKEN TO ICU 15 WHERE KELSY AYALA RN ASSISTED WITH TRANSFER TO ICU BED AND BATH PATIENT HAD A LARGE BLACK STOOL(HX OF PEPTO BISMOL GIVEN) AND PATIENT AND BED WERE SOILED. HR CONTINUES 150'S TO 160'S. CARDIZEM GTT STARTED AT 5 MG/HR BP WAS LOW. BP IMPROVED WITH CARDIZEM AT 5 MG/HR, SO TITRATED TO 10 MG/HR.
--- NOTE | 2018-07-05 11:21 | NUR ---
[facility] DC'[facility]
--- NOTE | 2018-07-05 11:31 | NUR ---
CARDIZEM BACK TO 5 MG/HR
--- NOTE | 2018-07-05 13:55 | NUR ---
CALLED DR. BENITO AROUND 1130 BECAUSE OF HYPOTENSION AND CONTINUED RVR. ORDER FOR DIGOXIN 0.25 IV X1. CONTINUES HYPOTENSION.
--- NOTE | 2018-07-05 19:37 | NUR ---
SUMMARY: PATIENT DOZING, REFUSES MEALS. HR CONTINUES 130'S-150'S, BLOOD PRESSURE LABILE. CARDIZEM GTT STARTED AND STOPPED D/T BP. DIGOXIN 0.25 MG GIVEN X2. 250 CC NS GIVEN. REACHED DR. CONRAD AROUND 1800. ORDER FOR CARDIZEM GTT AT 2 MG/HR AND HE WILL SEE PATIENT IN AM.
--- NOTE | 2018-07-05 20:17 | NUR ---
REPORT GIVEN TO NENITA CAIN
--- NOTE | 2018-07-05 20:36 | NUR ---
PROVIDER CONTACTED PT WITH HR REMAINING IN THE 135-150 RANGE, MOSTLY SUSTAINING IN THE 140'S. BP CURRENTLY 103/74 WITH CURRENT ORDERS TO KEEP CARDIZEM DRIP AT 2 MG/HR. DR CONRAD CONTACTED AND UPDATED ON PATIENT STATUS. PHYSICIAN STATES THAT RATE IN 130'S IS ACCEPTABLE FOR THIS PATIENT AT THIS TIME DUE TO POTENTIAL FLUID OVERLOAD. PHYSICIAN ALSO STATES THAT CARDIZEM DRIP CAN BE TITRATED TO 3 MG/HR IF SBP REMAINS >90 OR MAP REMAINS >65. WILL TITRATE DRIP AND CONTINUE MONITORING.
--- NOTE | 2018-07-05 22:15 | NUR ---
DR ANAMARIA CONRAD IN TO SEE PATIENT AT APPROXIMATELY 2205. ATTEMPTED CAROTID MASSAGE WITH BRIEF DECREASE TO RATE TO THE 120'S THAT RAPIDLY INCREASED BACK TO 140'S AFTER STIMULATION, RHYTHM STRIP IN CHART. PT TOLERATED WELL. PHYSICIAN VERBALIZED THAT CARDIZEM CAN BE TITRATED UP GRADUALLY IN ATTEMPT TO CONTROL RATE LONG MAP IS GREATER THAN 65. PHYSICIAN REPORTS THAT HE WILL SEE PATIENT AGAIN IN THE AM TO REASSESS. WILL CONTINUE TO MONITOR.
[2018-07-06 03:42] LABS: BASOPHILS ABSOLUTE AUTO 0.07 K/mm3 (0.00-0.23); BASOPHILS PERCENT AUTO 1 % (0-2); EOSINOPHILS PERCENT AUTO 1 % (0-6); Hematocrit 34.3 % (37.0-53.0); Hemoglobin 10.1 g/dL (13.5-17.5); IMMATURE GRAN ABSOLUTE AUTO 0.05 K/mm3 (0.00-0.10); IMMATURE GRAN PERCENT AUTO 1 % (0-1); LYMPHOCYTES ABSOLUTE AUTO 1.16 K/mm3 (0.84-5.20); LYMPHOCYTES PERCENT AUTO 11 % (21-46); MONOCYTES ABSOLUTE AUTO 0.69 K/mm3 (0.16-1.47); MONOCYTES PERCENT AUTO 7 % (4-13); Mean Corpuscular HGB 29.4 pg (26.0-34.0); Mean Corpuscular HGB Conc 29.4 g/dL (31.5-36.5); Mean Corpuscular Volume 100 fL (80-100); Mean Platelet Volume 11.7 fL (9.1-12.4); NEUTROPHILS ABSOLUTE AUTO 8.27 K/mm3 (1.96-9.15); NEUTROPHILS PERCENT AUTO 80 % (41-73); Platelet Count 232 K/mm3 (150-400); RDW Standard Deviation 61.7 fL (35.1-46.3); Red Blood Cell Count 3.43 M/mm3 (4.30-5.90); White Blood Cell Count 10.34 K/mm3 (4.00-11.30)
[2018-07-06 04:00] LABS: Albumin, Blood 2.5 g/dL (3.4-5.0); Anion Gap 10 mmol/L (6-16); Blood Urea Nitrogen 57 mg/dL (8-24); Bun/Creatinine Ratio 8.9 (12.0-20.0); CO2, Blood 28 mmol/L (21-32); Calcium, Blood 8.4 mg/dL (8.5-10.1); Chloride, Blood 103 mmol/L (98-108); Creatinine, Blood 6.44 mg/dL (0.60-1.20); Glomerular Filtration Rate 9 (60-); Glucose, Blood 74 mg/dL (70-99); Magnesium, Blood 2.3 mg/dL (1.6-2.4); Phosphorus, Blood 5.1 mg/dL (2.5-4.9); Potassium, Blood 4.2 mmol/L (3.5-5.5); Sodium, Blood 141 mmol/L (136-145)
--- NOTE | 2018-07-06 06:37 | NUR ---
SHIFT SUMMARY- PT ABLE TO ANSWER ORIENTATION QUESTIONS APPROPRIATELY AT START OF SHIFT, BUT APPEARS TO BECOME DISORIENTED UPON WAKING. HAS REMAINED COOPERATIVE WITH CARE. HEART RATE CONTINUES TO RANGE FROM 110'S- 140'S, CARDIZEM INCREASED GRADUALLY BASED ON MAP >65 PER PHYSICIAN, MIR ON RATE OF 7 MG/HR. BLOOD PRESSURE REMAINS LABILE, BUT MAP HAS SLOWLY INCREASED THROUGHOUT THE NIGHT. PT HAS SLEPT THROUGHOUT MUCH OF THE NIGHT, WAKING EASILY FOR CARE AND VITAL SIGNS. DR FERNÁNDEZ IN TO SEE PATIENT THIS AM, NO NEW ORDERS RECEIVED AT THIS TIME. NO OTHER CHANGES FROM INITIAL ASSESSMENT. WILL CONTINUE TO MONITOR AND REPORT TO ONCOMING SHIFT RN. BED IN LOW POSITION, CALL LIGHT IN REACH. BED ALARM SET FOR SAFETY.
--- NOTE | 2018-07-06 07:15 | NUR ---
START OF SHIFT NOTE: RECEIVED REPORT FROM NENITA CAIN, [facility], PATIENT ON CARDIZEM DRIP AT 7, WITHHR IN 150'S TO 160', CARDIZEM DRIP INCREASED TO 15, WITH ONLY BRIEF DECREASE IN HR TO 118, PATIENT APPEARS TO BE ASYMPTOMATIC, ALERT TO PLACE, SELF AND PERSON, UNABLE TO TELL TIME AND DATE/MONTH, PATIENT HAS BRUISES THROUGHOUT THE ENTIRE BODY, LS DIMINISHED AND SOME CRACKLES NOTED IN ALL CARTER, HYPOACTIVE BOWEL TONES, DR. CONRAD IN TO SEE PATIENT, NEW ORDERS RECEIVED, ALSO DIALYSIS SCHEDULED FOR 829, NENITA RIVERA, DIALYSIS NOTIFIED, CALL LIGHT IN REACH, WILL CONTINUE TO MONITOR.
--- NOTE | 2018-07-06 08:45 | NUR ---
DR. BENITO IN TO SEE PATIENT, AMIODARONE BOLUS STARTED, AND DRIP AFTER BOLUS, HR NOW DOWN TO 130'S AND 140'S WITH BRIEF DECREASE TO 80'S AND 90'S, PATIENT IS AWAKE AND DIALYSIS IN ROOM, PATIENT ATE BREAKFAST, CALL LIGHT IN REACH, WILL CONTINUE TO MONITOR.
--- NOTE | 2018-07-06 09:44 | NUR ---
PATIENT BEING DIALYZED AT THIS TIME, RESTING COMFORTABLY, CALL LIGHT IN REACH, WILL CONTINUE TO MONITOR.
--- NOTE | 2018-07-06 12:34 | NUR ---
PATIENT IS RESTING COMFORTABLY IN BED, CONTINUES TO BE NPO, AWAITING DR. LOFTON TO SEE PATIENT AND CHANGE NPO STATUS, CALL LIGHT IN REACH, WILL CONTINUE TO MONITOR.
--- NOTE | 2018-07-06 13:08 | NUR ---
Pt. is lying in resting, when asked ,how are doing today, pt. responded to be doing well, encouraged pt. and offered prayers and spiritual support and prayers .
--- NOTE | 2018-07-06 17:50 | NUR ---
SHIFT SUMMARY NOTE: PATIENT FALLS ASLEEP FREQUENTLY AND HAS TO BE WOKEN UP TO CONTINUE EATING, HE IS ALERT AND ORIENTED TO SELF, PERSON AND PLACE, CONTINUES TO BE IN A-FIB WITH RATE RANGING FROM 110'S TO 150'S, HE IS NOW ON AN AMIODARONE DRIP, THIS WAS CHANGED FROM [facility] THIS AM BY DR. 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
[2018-07-07 03:23] LABS: BASOPHILS ABSOLUTE AUTO 0.07 K/mm3 (0.00-0.23); BASOPHILS PERCENT AUTO 1 % (0-2); EOSINOPHILS ABSOLUTE AUTO 0.15 K/mm3 (0.00-0.68); EOSINOPHILS PERCENT AUTO 2 % (0-6); Hematocrit 34.1 % (37.0-53.0); Hemoglobin 10.1 g/dL (13.5-17.5); IMMATURE GRAN ABSOLUTE AUTO 0.04 K/mm3 (0.00-0.10); IMMATURE GRAN PERCENT AUTO 1 % (0-1); LYMPHOCYTES ABSOLUTE AUTO 0.95 K/mm3 (0.84-5.20); LYMPHOCYTES PERCENT AUTO 11 % (21-46); MONOCYTES ABSOLUTE AUTO 0.57 K/mm3 (0.16-1.47); MONOCYTES PERCENT AUTO 7 % (4-13); Mean Corpuscular HGB 29.5 pg (26.0-34.0); Mean Corpuscular HGB Conc 29.6 g/dL (31.5-36.5); Mean Corpuscular Volume 100 fL (80-100); Mean Platelet Volume 11.3 fL (9.1-12.4); NEUTROPHILS ABSOLUTE AUTO 6.58 K/mm3 (1.96-9.15); NEUTROPHILS PERCENT AUTO 79 % (41-73); Platelet Count 235 K/mm3 (150-400); RDW Coefficient Variation 16.5 % (11.7-14.2); RDW Standard Deviation 60.6 fL (35.1-46.3); Red Blood Cell Count 3.42 M/mm3 (4.30-5.90); White Blood Cell Count 8.36 K/mm3 (4.00-11.30)
[2018-07-07 03:46] LABS: Magnesium, Blood 2.3 mg/dL (1.6-2.4)
[2018-07-07 03:47] LABS: Albumin, Blood 2.6 g/dL (3.4-5.0); Anion Gap 7 mmol/L (6-16); Blood Urea Nitrogen 47 mg/dL (8-24); Bun/Creatinine Ratio 8.6 (12.0-20.0); CO2, Blood 32 mmol/L (21-32); Calcium, Blood 8.5 mg/dL (8.5-10.1); Chloride, Blood 103 mmol/L (98-108); Creatinine, Blood 5.47 mg/dL (0.60-1.20); Glomerular Filtration Rate 11 (60-); Glucose, Blood 96 mg/dL (70-99); Phosphorus, Blood 4.6 mg/dL (2.5-4.9); Potassium, Blood 4.2 mmol/L (3.5-5.5); Sodium, Blood 142 mmol/L (136-145)
--- NOTE | 2018-07-07 03:48 | NUR ---
RHYTHM CHANGE PT NOTED TO CONVERT OUT OF AFIB AT THIS TIME. RHYTHM CONTINUES TO BE IRREGULAR, BUT P WAVES ARE CONSISTENT. SEE PAPER CHART FOR RHYTHM STRIP. AMIODERONE DRIP CONTINUES TO INFUSE PER MD ORDERS.
--- NOTE | 2018-07-07 08:07 | NUR ---
SUMMARY THROUGHOUT NIGHT, VITALS STABLE WITH EXCEPTION OF HR. AMIODERONE INFUSION RUNNING PER ORDERS. METOPROLOL ADMIN FOR ELEVATED HR. THIS MORNING, RHYTHM CHANGE NOTED. SEE PREVIOUS NOTE. PT HAS BEEN AWAKE MOST OF THE NIGHT, CALLING APPROPRIATELY FOR NEEDS. SEE SHIFT ASSESSMENT. SEE VITALS FLOWSHEET. REPORT TO NENITA LAYTON AT 0715 TO ASSUME CARE.
--- NOTE | 2018-07-07 11:23 | NUR ---
BEGINNING OF SHIFT Assumed care of pt at 0700 with Dee GTZ. Report recieved from Priscilla GUTIERRES. Pt on amiodarone drip at 0.5 mg/min. Drip disconnected from pt at 0845. Pt OOB several times, to work with PT and OT, and to go to imaging. Pt states he is having difficulty removing his right arm and suspects that he might have had a mini stroke. This was discussed with Dr Meeks. New orders given. Pt has edema to right arm. Pt states arm feels "heavy". At this time, pt sitting up in chair. Calls appropriately. Denies need at this time.
--- NOTE | 2018-07-07 12:27 | NUR ---
Echocardiogram completed.
--- NOTE | 2018-07-07 14:41 | NUR ---
Pt. is lying in bed and reports to be doing fine encouraged pt. and offered prayers .
--- NOTE | 2018-07-07 18:18 | NUR ---
SHIFT SUMMARY: PT IS ALERT AND ORIENTED TO SELF AND PLACE, CAN BE CONFUSED AT TIMES. PT'S AMIODORONE DRIP WAS COMPLETED AT 0830. PT IS CURRENTLY IN NSR WITH HEARTRATE AT 77 BPM. PT IS ABLE TO FOLLOW DIRECTIONS AND IS COOPERATIVE WITH CARE. PT ON ROOM AIR 02 SATS GREATER THAN 90%. OUT OF BED SEVERAL TIMES A DAY, TOLERATES ACTIVITY WELL WITH 1-PERSON ASSIST USING GAITBELT AND FWW. REPORT GIVEN TO MARK GUTIERRES, PLANS TO TRANSPORT PT TO PCU 6.
--- NOTE | 2018-07-07 18:30 | NUR ---
SHIFT SUMMARY No acute changes since shift assessment. This RN placed call to Dr Meeks regarding results from chest xray done on 07/[address]. Provider stated chest CT could be performed now that pt's HR is stable and provided telephone order for CT Chest with contrast, to be done tomorrow, before pt has dialysis. Pt transferred to PCU 7. Report given to Diogo GUTIERRES by Dee GTZ, with this RN witnessing report. Chart, belongings, and medications transferred with patient.
--- NOTE | 2018-07-07 18:42 | NUR ---
Arrived to PCU 7. Assisted from the wheelchair to the bed by the student nurse. Pt is alert, oriented, pleasantly conversant.
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
[2018-07-08 04:15] LABS: Hematocrit 31.5 % (37.0-53.0); Hemoglobin 9.2 g/dL (13.5-17.5)
[2018-07-08 04:30] LABS: Magnesium, Blood 2.4 mg/dL (1.6-2.4)
[2018-07-08 04:31] LABS: Albumin, Blood 2.5 g/dL (3.4-5.0); Anion Gap 8 mmol/L (6-16); Blood Urea Nitrogen 65 mg/dL (8-24); Bun/Creatinine Ratio 9.2 (12.0-20.0); CO2, Blood 31 mmol/L (21-32); Calcium, Blood 8.6 mg/dL (8.5-10.1); Chloride, Blood 101 mmol/L (98-108); Creatinine, Blood 7.06 mg/dL (0.60-1.20); Glomerular Filtration Rate 8 (60-); Glucose, Blood 102 mg/dL (70-99); Phosphorus, Blood 4.3 mg/dL (2.5-4.9); Potassium, Blood 4.1 mmol/L (3.5-5.5); Sodium, Blood 140 mmol/L (136-145)
--- NOTE | 2018-07-08 04:34 | NUR ---
SHIFT SUMMARY: PATIENT C/O NOT BEING ABLE TO SLEEP, ASKED NURSE TO CHECK BLOOD GLUCOSE-RESULT WAS 97. CT OF CHEST WITH CONTRAST SCHEDULED IN AM FOLLOWED SOON AFTER BY DIALYSIS. PATIENT DENIES ANY PAIN, CALL LIGHT WITHIN REACH AND USED APPROPRIATLY, BED LOW AND LOCKED.
--- NOTE | 2018-07-08 09:40 | NUR ---
Discussed diet with Dr. Meeks as well as Mayelin Stroud RN. Pt's potassium level is 4.1 today, and he is currently getting dialysis. OK to have a baked potato today.
--- NOTE | 2018-07-08 13:07 | NUR ---
Pt brought back from Dialysis at approx 12:15. States that he feels ok. Vital signs taken, noted stable.
--- NOTE | 2018-07-08 13:21 | NUR ---
Pt. is taking it easy ,he is in bed and in dialysis , prvided spiritual support and prayerd.
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
--- NOTE | 2018-07-08 17:04 | NUR ---
END OF SHIFT SUMMARY ASSUMED CARE OF PT @0700. PT TO CT W/ CONTRAST @ 0800. PT THEN TO DIALYSIS @0900. PT RETURNED TO UNIT WITH STABLE VS. PT HAS MULTIPLE BRUISES AND OPEN WOUNDS COVERING BODY THAT HE CAME IN WITH ADMISSION. PT VS HAVE REMAINED STABLE THIS SHIFT. PT RECEIVED SPONGE BATH, LOTION FOR COCCYX AREA DUE TO PT STATING FEELING SORE IN THQAT AREA AFTER SITING FOR DIALYSIS. PT HAS BEEN ALERT AND ORIENTED, NSR WITH PAC'S, LUNG SOUNDS HAVE REMAINED WITH CRACKLES T/O BUT HAS DECREASED POST DIALYSIS. PT HAS BEEN ON PHONE WITH [employer] AND POLICE REGARDING WALLET AND SUPPOSED STOLEN MONEY, SEE NOTE. PT IN WHEELCHAIR FOR MAJORITY OF SHIFT. PT VERY TALKATIVE WITH STAFF. FAMILY COMING TO SEE PT THIS EVENING PER PATIENT. WILL CONTINUE TO MONITOR PT UNTIL SHIFT CHANGE.
[2018-07-09 04:27] LABS: BASOPHILS PERCENT AUTO 1 % (0-2); EOSINOPHILS ABSOLUTE AUTO 0.18 K/mm3 (0.00-0.68); EOSINOPHILS PERCENT AUTO 3 % (0-6); Hematocrit 35.7 % (37.0-53.0); Hemoglobin 10.5 g/dL (13.5-17.5); IMMATURE GRAN ABSOLUTE AUTO 0.03 K/mm3 (0.00-0.10); IMMATURE GRAN PERCENT AUTO 0 % (0-1); LYMPHOCYTES ABSOLUTE AUTO 1.23 K/mm3 (0.84-5.20); LYMPHOCYTES PERCENT AUTO 18 % (21-46); MONOCYTES PERCENT AUTO 6 % (4-13); Mean Corpuscular HGB 29.4 pg (26.0-34.0); Mean Corpuscular HGB Conc 29.4 g/dL (31.5-36.5); Mean Corpuscular Volume 100 fL (80-100); Mean Platelet Volume 11.6 fL (9.1-12.4); NEUTROPHILS ABSOLUTE AUTO 5.03 K/mm3 (1.96-9.15); NEUTROPHILS PERCENT AUTO 72 % (41-73); Platelet Count 265 K/mm3 (150-400); RDW Coefficient Variation 15.9 % (11.7-14.2); RDW Standard Deviation 58.4 fL (35.1-46.3); Red Blood Cell Count 3.57 M/mm3 (4.30-5.90); White Blood Cell Count 6.97 K/mm3 (4.00-11.30)
[2018-07-09 04:51] LABS: Alanine Aminotransfer (ALT/SGP 11 U/L (12-78); Albumin, Blood 2.9 g/dL (3.4-5.0); Albumin/Globulin Ratio 0.9 (0.8-1.8); Alk Phos 92 U/L (50-136); Anion Gap 8 mmol/L (6-16); Aspartate Aminotrans (AST/SGOT 17 U/L (12-37); Bilirubin, Total 0.4 mg/dL (0.1-1.0); Blood Urea Nitrogen 71 mg/dL (8-24); Bun/Creatinine Ratio 10.8 (12.0-20.0); CO2, Blood 30 mmol/L (21-32); Calcium, Blood 8.7 mg/dL (8.5-10.1); Chloride, Blood 100 mmol/L (98-108); Creatinine, Blood 6.55 mg/dL (0.60-1.20); Globulin, Blood 3.4 g/dL (2.2-4.0); Glomerular Filtration Rate 9 (60-); Glucose, Blood 117 mg/dL (70-99); Magnesium, Blood 2.6 mg/dL (1.6-2.4); Phosphorus, Blood 4.4 mg/dL (2.5-4.9); Potassium, Blood 4.4 mmol/L (3.5-5.5); Sodium, Blood 138 mmol/L (136-145); Total Protein, Blood 6.3 g/dL (6.4-8.2)
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
[2018-07-09] MEDS ORDERED: LEVSOD100 PO (10:15)
[2018-07-09] MEDS ORDERED: MIDO5 PO (10:17)
[2018-07-09] MEDS ORDERED: METO50ER PO (10:18)
--- NOTE | 2018-07-09 11:58 | NUR ---
BEGINNING OF SHIFT - DISCHARGE Assumed care of pt at 0700. Report recieved from Gertrude GUTIERRES. Pt on room air. States strong desire to leave. Shift assessment completed. Dr Meeks in to see pt. Agreeable with discharge. Pt departed with [facility] at 1130. IV access discontinued. Telemetry removed. Report called to Kathy at [facility]. Medication orders faxed to [facility]. Pt departed from unit at 1130.
--- NOTE | 2018-07-09 13:42 | NUR ---
Met pt. getting ready to go home after discharge wished pt. all the best while at home, offered prayers and blessing.
== END 2018-07-09 11:39 | disposition home or self-care (01) | DRG 70 ==
LOC: ER 11:44 → ICUW 15:32 → MEDS 15:32 → ICUW 07-05 10:37 → PCU 07-07 17:26
PROVIDERS: Emergency Medicine; Internal Medicine Nephrology; ADMIT Internal Medicine
PROC: 5A1D70Z Performance of Urinary Filtration, Intermittent, Less than 6 Hours Per Day (ICD-10-PCS; principal; 2018-07-04)
PROC: 5A1D70Z Performance of Urinary Filtration, Intermittent, Less than 6 Hours Per Day (ICD-10-PCS; 2018-07-06)
PROC: 5A1D70Z Performance of Urinary Filtration, Intermittent, Less than 6 Hours Per Day (ICD-10-PCS; 2018-07-09)
DX: G93.41 Metabolic encephalopathy (principal); J96.01 Acute respiratory failure with hypoxia; N18.6 End stage renal disease; I13.2 Hypertensive heart and chronic kidney disease with heart failure and with stage 5 chronic kidney disease, or end stage renal disease; I50.30 Unspecified diastolic (congestive) heart failure; N25.81 Secondary hyperparathyroidism of renal origin; Z99.2 Dependence on renal dialysis; D63.1 Anemia in chronic kidney disease; E87.70 Fluid overload, unspecified; I48.2 Chronic atrial fibrillation; J44.9 Chronic obstructive pulmonary disease, unspecified; I25.10 Atherosclerotic heart disease of native coronary artery without angina pectoris; E03.9 Hypothyroidism, unspecified; E83.39 Other disorders of phosphorus metabolism; F17.210 Nicotine dependence, cigarettes, uncomplicated; K21.9 Gastro-esophageal reflux disease without esophagitis; K70.30 Alcoholic cirrhosis of liver without ascites; M10.9 Gout, unspecified; M25.511 Pain in right shoulder; Z91.81 History of falling; E88.09 Other disorders of plasma-protein metabolism, not elsewhere classified; I95.9 Hypotension, unspecified; F12.90 Cannabis use, unspecified, uncomplicated; N40.0 Benign prostatic hyperplasia without lower urinary tract symptoms; J98.01 Acute bronchospasm; Z86.73 Personal history of transient ischemic attack (TIA), and cerebral infarction without residual deficits
CPT/HCPCS: 36415; 51702; 51798; 70450; 71045; 71260; 73030; 74160; 80053; 80069; 81001; 82140; 82728; 82803; 82947; 83540; 83550; 83605; 83735; 84100; 84145; 84443; 84484; 85014; 85018; 85025; 87040; 87070; 87081; 93005; 93010; 93306; 96360-59; 96361-59; 97110; 97162; 97165; 97530; 97535; 99285-25; G0480; J0282; J0881; J1160; J7030; J7050; J7060; Q9967

== ENCOUNTER 2018-07-13 09:17 | Inpatient (IN) | payer MEDICARE, OTHER ==
[~2018-07-13] VITALS: Ht 175.3 cm; Wt 87.3 kg
[~2018-07-13 09:17] MED LIST changes: +Aluminum H320 MG/5 M PO; +LEVSOD100 PO; +MIDO5 PO; +ONDA4ODT PO; +Ropinirole HCl1 MG PO; +Vitamin D2000 UNIT PO
[2018-07-13 09:53] LABS: BASOPHILS ABSOLUTE AUTO 0.08 K/mm3 (0.00-0.23); BASOPHILS PERCENT AUTO 1 % (0-2); EOSINOPHILS ABSOLUTE AUTO 0.14 K/mm3 (0.00-0.68); EOSINOPHILS PERCENT AUTO 2 % (0-6); Hematocrit 30.2 % (37.0-53.0); Hemoglobin 8.9 g/dL (13.5-17.5); IMMATURE GRAN ABSOLUTE AUTO 0.05 K/mm3 (0.00-0.10); IMMATURE GRAN PERCENT AUTO 1 % (0-1); LYMPHOCYTES ABSOLUTE AUTO 0.95 K/mm3 (0.84-5.20); LYMPHOCYTES PERCENT AUTO 13 % (21-46); MONOCYTES ABSOLUTE AUTO 0.64 K/mm3 (0.16-1.47); MONOCYTES PERCENT AUTO 8 % (4-13); Mean Corpuscular HGB 28.8 pg (26.0-34.0); Mean Corpuscular HGB Conc 29.5 g/dL (31.5-36.5); Mean Corpuscular Volume 98 fL (80-100); Mean Platelet Volume 11.8 fL (9.1-12.4); NEUTROPHILS ABSOLUTE AUTO 5.75 K/mm3 (1.96-9.15); NEUTROPHILS PERCENT AUTO 76 % (41-73); Platelet Count 294 K/mm3 (150-400); RDW Coefficient Variation 16.1 % (11.7-14.2); RDW Standard Deviation 57.7 fL (35.1-46.3); Red Blood Cell Count 3.09 M/mm3 (4.30-5.90); White Blood Cell Count 7.61 K/mm3 (4.00-11.30)
[2018-07-13 10:16] LABS: Albumin, Blood 2.5 g/dL (3.4-5.0); Albumin/Globulin Ratio 0.8 (0.8-1.8); Bilirubin, Total 0.4 mg/dL (0.1-1.0); Bun/Creatinine Ratio 12.4 (12.0-20.0); Calcium, Blood 7.7 mg/dL (8.5-10.1); Creatinine, Blood 10.5 mg/dL (0.60-1.20); Globulin, Blood 3.3 g/dL (2.2-4.0); Potassium, Blood 6.7 mmol/L (3.5-5.5); Total Protein, Blood 5.8 g/dL (6.4-8.2)
[2018-07-13] MEDS ORDERED: LEVSOD150 PO (10:57)
[2018-07-13] MEDS ORDERED: CLOP75 PO (10:58)
[2018-07-13] MEDS ORDERED: LO-DOSE ASPIRIN81 MG PO (10:58)
[2018-07-13] MEDS ORDERED: Cymbalta20 MG PO (10:59)
[2018-07-13] MEDS ORDERED: FURO40 PO (11:00)
[2018-07-13] MEDS ORDERED: FOLI1 PO (11:01)
[2018-07-13 11:35] LABS: Magnesium, Blood 3.2 mg/dL (1.6-2.4)
[2018-07-13 11:40] LABS: Phosphorus, Blood 8.2 mg/dL (2.5-4.9)
[2018-07-13 12:17] LABS: PCO2 Arterial 39.7 mmHg (35-45); PO2 Arterial 101 mmHg (80-100); pH Blood Arterial 7.34 (7.35-7.45)
[2018-07-13 12:51] LABS: Bun/Creatinine Ratio 12.6 (12.0-20.0); Creatinine, Blood 10.6 mg/dL (0.60-1.20); Potassium, Blood 5.4 mmol/L (3.5-5.5)
[2018-07-13 12:55] LABS: U Amphetamine Screen Not Detected; U Barbituate Screen Not Detected; U Benzodiazapine Screen Not Detected; U Buprenorphine Screen Not Detected; U Cannabinoids Screen Not Detected; U Cocaine Screen Not Detected; U Methadone Screen Not Detected; U Methamphetamine Screen Not Detected; U Opiates Screen Not Detected; U Oxycodone Screen DETECTED; U Phencyclidine Screen Not Detected; U Propoxyphene Screen Not Detected
[2018-07-13] MEDS ORDERED: FURO80 PO (13:17)
--- NOTE | 2018-07-13 14:54 | NUR ---
ADMIT: PT ARRIVED TO ICU 1 VIA STRETCHER. PT AWAKES TO VOICE, DISORIENTED TO PLACE AND TIME. HR SB, BP STABLE. NO FAMILY PRESENT AT THE BEDSIDE. WILL COMPLETE ADMIT ABLE WITH HELP FROM PT AND MEDICAL RECORD.
--- NOTE | 2018-07-13 15:41 | NUR ---
DR. FERNÁNDEZ NOTIFIED OF CONSULT. RECEIVED ORDER TO GIVE 1 UNIT OF PRBC DURING DIALYSIS AND INFORM DIALYSIS NURSE. ALEJANDRINA, WEB DATABASE DEVELOPER, NOTIFIED.
--- NOTE | 2018-07-13 17:06 | NUR ---
SHIFT SUMMARY: PT HAS BEEN RESTING SINCE ADMIT. HIS BLOOD SUGAR WAS 40 SO 1 AMP OF D50 GIVEN AND REPEAT WAS 73. ORDER RECEIVED FROM DR. MUNGUIA TO REPEAT D50 NEEDED FOR HYPOGLYCEMIA. EVEN AFTER D50 PT IS STILL LETHARGIC, ONLY WAKING TO VERBAL STIMULI. SB, BP STABLE. PT IS RECEIVING DIALYSIS CURRENTLY. [facility] DRAINING CL YELLOW URINE. CONTINUE TO MONITOR.
--- NOTE | 2018-07-13 18:53 | NUR ---
Pt admitted to ICU started on dialysis. Pt minimally responsive and twitching tolerating UF setting for dialysis at this time. Pt recieving tranfussion. Pt in junctional rythm with abarent pvc'c. Pt is [place] patient advance directive on file and Decision maker. His friend is listed called her first and left message to call ICU. Dr Waite in to consult on patient. KPS score is 30%. Pt high risk for sudden . Pt failing dialysis plan and needing higher level of support for his living situation. Prognonstic discussion needed with family and nephrology. pt apporopriate for hospice care. Will see if his mental status improves to the point where he is comptetent to participate in decisions. May need OT evaluation.
--- NOTE | 2018-07-13 20:26 | NUR ---
START OF SHIFT: PT DROWSY AWAKENING FOR BRIEF MOMENTS BUT ABLE TO SIP APPLE JUICE, STATED NO TO HEPARIN INJECTION BUT YES TO SCD'S-SCD'S PLACED AND TURNED ON. PT OPENS EYES BRIEFLY AND STATED THAT LEFT EYE DRIFT IS NORMAL. PT WITH PRODUCTIVE COUGH SITTING IN UPRIGHT POSITION. PT OTHERWISE FALLS RIGHT BACK TO SLEEP WHEN NOT SPOKEN TO. VSS. HR CURRENTLY 62. BP STABLE. SATS 94% 1L O2. BED ALARM ON. WILL CONTINUE TO MONITOR.
--- NOTE | 2018-07-13 20:34 | NUR ---
PT AWAKENS SUDDENLY WHILE THIS RN CHARTING AND STATES, "WELL, HELLO! DO YOU HAVE MY TEETH?". THIS RN FOUND PT'S UPPER TEETH IN BELONGINGS AND ASKED IF HE HAD LOWERS, PT STATED, "NO, THAT'S ALL I HAVE". AND FALLS BACK TO SLEEP.
--- NOTE | 2018-07-13 22:09 | NUR ---
PT AWAKENED TO RN AT BEDSIDE. PT AT A FEW BITES OF JELLO AND SIPPED APPLE JUICE WITHOUT DIFFICULTY. PT ASKED WHAT THE SHOT WAS (ARANESP INJECTION). PT STATED, "YES, OKAY" WHEN ASKED IF FAMILIAR WITH RECEIVING EPOGEN AT DIALYSIS AND , "OKAY" WHEN TOLD THAT ARANESP WAS A SIMILAR MEDICATION. PT STATED, "YES" WHEN ASKED IF OKAY TO RECIEVE IT. OTHERWISE, PT FALLS RIGHT BACK TO SLEEP WHEN NOT SPOKEN TO.
--- NOTE | 2018-07-14 01:09 | NUR ---
DR. SANCHEZ NOTIFIED: RE: PT'S TRENDING HYPOTENSION AND RECURRING HYPOGLYCEMIA. NEW ORDERS TO START D5 1/2NS AT 75/hr X1 BAG.
--- NOTE | 2018-07-14 02:26 | NUR ---
DR. SANCHEZ NOTIFIED: RE: CONTINUED TRENDING DOWN HYPOTENSION. NEW ORDERS TO GIVE NS 250 BOLUS AND IF NEEDED GIVE A SECOND BOLUS.
[2018-07-14 03:35] LABS: Hematocrit 28.1 % (37.0-53.0); Hemoglobin 8.6 g/dL (13.5-17.5)
[2018-07-14 03:58] LABS: Magnesium, Blood 2.5 mg/dL (1.6-2.4); Thyroxine (T4) 6.5 ug/dL (4.5-12.1)
[2018-07-14 03:59] LABS: Albumin, Blood 2.1 g/dL (3.4-5.0); Anion Gap 13 mmol/L (6-16); Blood Urea Nitrogen 99 mg/dL (8-24); Bun/Creatinine Ratio 11.8 (12.0-20.0); CO2, Blood 26 mmol/L (21-32); Calcium, Blood 7.2 mg/dL (8.5-10.1); Chloride, Blood 104 mmol/L (98-108); Creatinine, Blood 8.42 mg/dL (0.60-1.20); Glomerular Filtration Rate 7 (60-); Glucose, Blood 78 mg/dL (70-99); Phosphorus, Blood 5.9 mg/dL (2.5-4.9); Potassium, Blood 5.5 mmol/L (3.5-5.5); Sodium, Blood 143 mmol/L (136-145)
--- NOTE | 2018-07-14 04:20 | NUR ---
DR. SANCHEZ NOTIFIED: RE: CONTINUED HYPOTENSION AFTER TOTAL OF NS 500mL BOLUS. NEW ORDERS TO GIVE ANOTHER 500cc NS BOLUS AND IF HYPTENSION CONTINUES TO NOTIFY DR. FERNÁNDEZ.
--- NOTE | 2018-07-14 06:03 | NUR ---
DR. FERNÁNDEZ TO BEDSIDE: DR. FERNÁNDEZ UPDATED ON PT. NEW ORDERS TO CHANGE FLUID TO D5 NORMAL SALINE AT 75/hr; START MIDODRINE 2.5mg TID-HOLD FOR SYSTOLIC BP >130.
--- NOTE | 2018-07-14 07:30 | NUR ---
ASSUMED CARE OF PATIENT; SEE ASSESSMENT CHARTING FOR DETAILS. PATIENT ROUSES TO VERBAL STIMULI AND IS ABLE TO ANSWER QUESTIONS BUT MUST BE RE-WAKENED FOR EACH QUESTION ASKED; NODS OFF TO SLEEP AND APPEARS LIKE HE IS CONTEMPLATING HIS RESPONSE, WITH HIS EYES CLOSED, BUT ACTUALLY IS ASLEEP. MONITOR SINUS KASHIF TO NSR; SBP ADEQUATE; DR. FERNÁNDZE HERE RECENTLY AND HAS ADDED MIDODRINE, TO MED. REGIMEN, TO HELP MAINTAIN BP. PATIENT TO HAVE HEMODIALYSIS, LATE, THIS AFTERNOON; WILL RECEIVE A UNIT OF RBC'S AT THAT TIME. IVF, OF K-PHOS 20 MMOL, INFUSING A JEREMI. CBG 84; NO INSULIN COVERAGE INDICATED.
--- NOTE | 2018-07-14 08:20 | NUR ---
DR. MUNGUIA HERE; RN UPDATED HIM ON PATIENTS' STATUS; INFORMED HIM DR. FERNÁNDEZ ADDED MIDODRINE TO MED. REGIME TO HELP STABILIZE PATIENTS' LOW BP; V/U.
--- NOTE | 2018-07-14 09:40 | NUR ---
DR. MUNGUIA ORDERED ACTH (STIM. TEST).
--- NOTE | 2018-07-14 10:37 | NUR ---
CORTISOL DOSE GIVEN, IV; LAB TO COME UP AND REDRAW CORTISOL LEVEL IN 30/MIN AND THEN IN 60/MIN. (THEY AMMON BASELINE AROUND 0950.
--- NOTE | 2018-07-14 10:42 | NUR ---
Echocardiogram completed.
--- NOTE | 2018-07-14 10:45 | NUR ---
PHYSICAL THERAPY WORKING WITH PATIENT; SEE NOTES.
--- NOTE | 2018-07-14 13:00 | NUR ---
RN CONT. TO NEED TO FEED PATIENT AND ROUSE HIM FOR EACH DRINK, ETC. BACK TO SLEEP WHEN NOT DISTURBED. NO ISSUES WITH ASPIRATION.
--- NOTE | 2018-07-14 13:55 | NUR ---
PHYSICAL THERAPIST HERE; SEE THERAPY NOTE.
--- NOTE | 2018-07-14 17:30 | NUR ---
PATIENT MORE ALERT; STARTING TO WAKE UP BRIEFLY ON OWN AND ABLE TO FOLLOW COMMANDS; IE SQUEEZE HANDS, MOVE FEET ETC. ASKING QUESTIONS OF WHY HE IS HERE AND WHEN DID HE ARRIVE. RN EXPLAINED WHY HE CAME ETC. THE ONLY THING PATIENT RECALLS WAS WHEN SOMEONE INSERTED THE CATHETER BECAUSE IT HURT. DOES NOT RECALL THE AMBULANCE RIDE, ER TIME WHERE IV'S WERE PLACED ETC. CONFUSED FOR AWHILE BUT THAN RN SHOWED HIM THE CLOCK, ETC AND PATIENT STATED HE WAS MORE ORIENTED TO HIS ENVIRONMENT, NOW. TAKING FLUIDS BETTER AND RN PLACED TOWEL ACROSS PATIENTS' CHEST AND THEN BEDSIDE TABLE ACROSS LAP; PATIENT REACHED FOR HIS BROTH AND DRANK ON OWN WITHOUT CHOKING; SET CUP DOWN AND THEN REACHED FOR APPLE JUICE CONTAINER; SPILLED SMALL AMOUNT. BACK TO SLEEP AFTER FINISHED AJ; SOME BROTH REMAINS.
--- NOTE | 2018-07-14 18:00 | NUR ---
SUMMARY: SLEPT T/O DAY; MORE ALERT THIS EVENING. VSS AND CBG'S IMPROVED. CONT. WITH D5NS AT 75/HR. TO HAVE HEMODIALYSIS THIS EVENING; WILL RECEIVE 1 UNIT RBC AT THIS TIME. WILL REPORT TO ONCOMING RN.
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
[2018-07-15 03:25] LABS: Hematocrit 31.2 % (37.0-53.0); Hemoglobin 9.7 g/dL (13.5-17.5)
[2018-07-15 03:47] LABS: Albumin, Blood 2.3 g/dL (3.4-5.0); Anion Gap 7 mmol/L (6-16); Blood Urea Nitrogen 61 mg/dL (8-24); CO2, Blood 31 mmol/L (21-32); Calcium, Blood 7.5 mg/dL (8.5-10.1); Chloride, Blood 101 mmol/L (98-108); Creatinine, Blood 6.09 mg/dL (0.60-1.20); Glomerular Filtration Rate 10 (60-); Glucose, Blood 92 mg/dL (70-99); Magnesium, Blood 2.3 mg/dL (1.6-2.4); Potassium, Blood 4.1 mmol/L (3.5-5.5); Sodium, Blood 139 mmol/L (136-145)
--- NOTE | 2018-07-15 05:59 | NUR ---
SHIFT SUMMARY PT CONTINUES TO BE CONFUSED OFTEN CALLING FOR NURSE AND THEN FORGETTING WHAT HE NEEDED. PT HAS TROUBLE FINDING WORDS AND WILL FALL ASLEEP MIDSENTENCE. VITAL SIGNS STABLE OVERNIGHT. PT REMAINS ON 2L NC WITH O2 SATS IN LOW 90'S. PT MOSTLY SINUS RHYTHM WITH OCCASIONAL PERIODS OF BRADYCARDIA. PT HAD 400 ML CLEAR URINE OUTPUT. PT CONTINUES TO HAVE COARSE LUNG SOUNDS WITH NONPRODUCTIVE COUGH. WILL REPORT TO DAYSHIFT NURSE.
--- NOTE | 2018-07-15 07:30 | NUR ---
ASSUMED CARE OF PATIENT; SEE ASSESSMENT CHARTING FOR DETAILS. PATIENT SLEEPING BUT WOKE UP, ON OWN, WHEN RN ENTERED THE ROOM. NODS OFF TO SLEEP BUT NOT QUICKLY; INITIATING CONVERSATION AND ANSWERING MOST QUESTIONS APPROPRIATELY. LUNGS WITH UPPER AIRWAY RHONCHI/WHEEZES; RECEIVES UDN TX. COUGH MOIST AND PATIENT EITHER SWALLOWS SECRETIONS OR SPITS INTO KLEENEX. DOES NOT REQUIRE HEMODIALYSIS TODAY. H&H IMPROVED SINCE UNIT OF RBC'S RECEIVED LAST EVENING DURING H.D. LOPEZ DRAINING FAIR AMOUNTS OF STRAW TO CLEAR COLORIED URINE. D5NS INFUSING AT 75ML/HR.
--- NOTE | 2018-07-15 08:30 | NUR ---
RN GAVE PATIENT SOME JELLO AND SOME ENSURE CLEAR; REFUSED BROTH AND JUICE AND ONLY TOOK SMALL AMOUNT OF JELLO/ENSURE. OVERALL STATUS BETTER; NODS OFF BUT WAKENS ON OWN FOR SHORT PERIODS.
--- NOTE | 2018-07-15 12:00 | NUR ---
SBP UP TO 180'S; RN WILL HOLD NEXT DOSE OF MIDODRINE. CBG WAS 79; PATIENT REMAINS AFEBRILE.
--- NOTE | 2018-07-15 12:30 | NUR ---
T/C TO DR. LOPEZ (HOSP); REQUESTED ADVANCE DIET TO BITE SIZE SOFT RENAL; OKAY GIVEN.
--- NOTE | 2018-07-15 12:44 | NUR ---
Met pt. in a chair resting but worried about hie healh''''''''''''''''''''''''''''''''''''''''''''''''''''''''''''''''''''''''' '''''''''''''''''''''''''''''''''''''''''''''''''''''''''''''''''''''''''''''' '''''''''''''''''''''''''''''''' Met pt. sitting in a chair thinking about his health condition, provided pt . with emotional support and prayers
--- NOTE | 2018-07-15 13:10 | NUR ---
Met pt in a chair reting , seems to be depressed gave Spiritual support and prayeers
--- NOTE | 2018-07-15 13:40 | NUR ---
PATIENT REMAINS IN RECLINER. RN SETUP MEAL (RENAL/SOFT BITE SIZE); PATIENT ABLE TO FEED SELF WITHOUT DIFFICULTY.
--- NOTE | 2018-07-15 14:10 | NUR ---
DR. LOPEZ ROUNDMARVEL; PLANS TO CHANGE PATIENT TO MED. FLOOR WITHOUT TELEMETRY AND WANTS JESSICA WALL.
--- NOTE | 2018-07-15 15:46 | NUR ---
MrYolanda Rivera was politely dismissive. He tells me he is active in his [employer] and prefers to have Father Gordon provide prayer/encouragement. I will remain available.
--- NOTE | 2018-07-15 17:30 | NUR ---
SUMMARY: PHYSICAL TX. AND RESP. THERAPIST AND MYSELF HEARD PATIENT COMPLAINING THAT THE DOCTOR REALLY UPSET HIM; TOLD PATIENT HE IS SICK BECAUSE HE JUST LAYS AROUND AND SMOKES POT ALL THE TIME. RN ADVISED SHE WOULD SPEAK TO PHYSICIAN RE: PATIENTS' ISSUE. RN T/C TO DR. LOPEZ TO INFORM HIM RE: PATIENT FEELING DISRESPECTED AND WANTING AN APOLOOGY; INFORMED HIM PATIENT SO UPSET THAT HE CONT. TO COMPLAIN TO ALL THE STAFF MEMBERS THAT ENTER HIS ROOM AND HAS REFUSED DINNER BECAUSE HE IS SO UPSET. PHYSICIAN STATES HE WON'T BE SEEING PATIENT TONIGHT BUT WILL SPEAK TO HIM IN THE MORNING; RN RELAYED THIS INFORMATION TO PATIENT AND IT SEEMED TO SATISFY HIM. ALERTNESS MUCH BETTER TODAY; CAT NAPS BUT NO NARCOLEPTIC TYPE BEHAVIOR. NO VOID SINCE JESSICA WALL AT AROUND 2PM. WILL REPORT TO ONCOMING RN.
--- NOTE | 2018-07-15 21:30 | NUR ---
ASSUMED CARE OF PT REPORT RCV'D FROM SALVADOR GUTIERRES. PT MUCH MORE ALERT AND ORIENTED THIS EVENING. PT SITTING UP IN CHAIR ON ROOM AIR. PT STATES THAT HE HAS BEEN NAUSEOUS OFF/ON ALL DAY BUT NO VOMITING. PT REQUESTING TO GET UP TO USE THE TOILET. PT STATES THAT HE USES A WHEELCHAIR AT HOME BUT THAT HE IS ABLE TO STAND. PT STOOD AND AMBULATED WITH ASSISTANCE, PT WAS WEAK BUT ABLE TO SHUFFLE 2-3 FEET TO TOILET. PT HAD SMALL BROWN BM WITH SMALL AMOUNT OF IVPUL BLOOD NOTED LIKELY FROM STRAINING. PT BACK TO CHAIR HE STATES HE IS MUCH MORE COMFORTABLE IN CHAIR AND WANTS TO SLEEP THERE. LUNG SOUNDS COARSE THROUGOUT, NON-PRODUCTIVE COUGH. PERIODS OF HTN SPB IN 180'S. D5NS @75 ML RUNNING IN RIGHT EJ. CALL LIGHT WITHIN REACH. SEE FULL SHIFT ASSESSMENT.
[2018-07-16 03:27] LABS: BASOPHILS ABSOLUTE AUTO 0.06 K/mm3 (0.00-0.23); BASOPHILS PERCENT AUTO 1 % (0-2); EOSINOPHILS ABSOLUTE AUTO 0.13 K/mm3 (0.00-0.68); EOSINOPHILS PERCENT AUTO 2 % (0-6); Hematocrit 35.1 % (37.0-53.0); Hemoglobin 10.8 g/dL (13.5-17.5); IMMATURE GRAN ABSOLUTE AUTO 0.19 K/mm3 (0.00-0.10); IMMATURE GRAN PERCENT AUTO 3 % (0-1); LYMPHOCYTES ABSOLUTE AUTO 0.75 K/mm3 (0.84-5.20); LYMPHOCYTES PERCENT AUTO 10 % (21-46); MONOCYTES ABSOLUTE AUTO 0.52 K/mm3 (0.16-1.47); MONOCYTES PERCENT AUTO 7 % (4-13); Mean Corpuscular HGB Conc 30.8 g/dL (31.5-36.5); Mean Platelet Volume 11.4 fL (9.1-12.4); NEUTROPHILS ABSOLUTE AUTO 5.63 K/mm3 (1.96-9.15); NEUTROPHILS PERCENT AUTO 77 % (41-73); Platelet Count 207 K/mm3 (150-400); RDW Coefficient Variation 15.9 % (11.7-14.2); RDW Standard Deviation 54.9 fL (35.1-46.3); Red Blood Cell Count 3.72 M/mm3 (4.30-5.90); White Blood Cell Count 7.28 K/mm3 (4.00-11.30)
[2018-07-16 03:32] LABS: Mean Corpuscular Volume 94 fL (80-100)
[2018-07-16 03:46] LABS: Alanine Aminotransfer (ALT/SGP 12 U/L (12-78); Albumin, Blood 2.3 g/dL (3.4-5.0); Albumin/Globulin Ratio 0.7 (0.8-1.8); Alk Phos 77 U/L (50-136); Anion Gap 7 mmol/L (6-16); Aspartate Aminotrans (AST/SGOT 12 U/L (12-37); Bilirubin, Total 0.4 mg/dL (0.1-1.0); Blood Urea Nitrogen 73 mg/dL (8-24); Bun/Creatinine Ratio 10.6 (12.0-20.0); CO2, Blood 28 mmol/L (21-32); Calcium, Blood 7.7 mg/dL (8.5-10.1); Chloride, Blood 106 mmol/L (98-108); Creatinine, Blood 6.91 mg/dL (0.60-1.20); Globulin, Blood 3.2 g/dL (2.2-4.0); Glomerular Filtration Rate 8 (60-); Glucose, Blood 87 mg/dL (70-99); Magnesium, Blood 2.3 mg/dL (1.6-2.4); Phosphorus, Blood 6.2 mg/dL (2.5-4.9); Potassium, Blood 4.8 mmol/L (3.5-5.5); Sodium, Blood 141 mmol/L (136-145); Total Protein, Blood 5.5 g/dL (6.4-8.2)
--- NOTE | 2018-07-16 05:31 | NUR ---
SHIFT SUMMARY NO ACUTE CHANGES OVERNIGHT. PT SLEPT OVERNIGHT IN RECLINER INCLINED AT 30 DEGREE ANGLE. PT HAD MULTIPLE EPISODES OF NAUSEA AND DRY HEAVES. PT TREATED WITH 8 MG ZOFRAN AND LATER 5 MG REGLAN. PT STILL REPORTS THAT HE FEELS NAUSEOUS AND JUST "DOESN'T FEEL GOOD". PT DID NOT EAT HIS DINNER LAST NIGHT HE REPORTS BEING UPSET BY "DR LOPEZ ACCUSING ME OF SMOKING WEED ALL THE TIME AND THAT THIS ALL IS MY FAULT" DESPITE NEGATIVE TOX SCREEN. PT AFEBRILE. VSS. 475 ML URINARY OUTPUT. MENTAL STATUS REMAINS CLEAR. WILL REPORT TO DAYSHIFT NURSE.
--- NOTE | 2018-07-16 07:10 | NUR ---
DR. FERNÁNDEZ AT BEDSIDE FOR EVALUATION. NEW ORDER FOR DIALYSIS TODAY.
--- NOTE | 2018-07-16 07:20 | NUR ---
IV SITES: RIGHT EJ 20G AN RIGHT CHEST 20G.
--- NOTE | 2018-07-16 08:17 | NUR ---
DR. LOPEZ AT BEDSIDE FOR EVALUATION.
--- NOTE | 2018-07-16 08:30 | NUR ---
ADVISED DR. HOYT OF PT'S ELEVATED BP 196/88 AND INTERMITTET NAUSEA THROUGHOUT THE NIGHT AND THIS AM, NEW ORDER FOR NORVASC 5 MG PO NOW AND ZOFRAN 4MG PO NOW. ALSO NEW ORDER FOR PT TO DISCHARGE HOME AFTER DIALYSIS TODAY.
--- NOTE | 2018-07-16 08:45 | NUR ---
CALLED [facility], AND ADVISED THAT PT WILL DISCHARGE TODAY BACK TO [facility] AFTER DIALYSIS TODAY.
[2018-07-16] MEDS ORDERED: LO-DOSE ASPIRIN81 MG PO (09:00)
[2018-07-16] MEDS ORDERED: AMLO5 PO (09:06)
--- NOTE | 2018-07-16 09:23 | NUR ---
PT TAKEN TO DIALYSIS VIA HOSPITAL BED BY MARTHA/KEELY.
--- NOTE | 2018-07-16 10:57 | NUR ---
CALLED JOE AND JANIE TRACEY, REGARING NEW PRESCRIPTION FOR NORVASC. JOE ASKED ME TO FAX THE PRESCRIPTION TO [facility]OHAN FERMIN IN [place] AT [phone]. DONE.
--- NOTE | 2018-07-16 11:54 | NUR ---
NURSING SUMMARY ALERT AND ORIENTED X4. LUNGS COARSE THROUGHOUT, ROOM AIR, O2 SATS >92%. SR 61, BP ELEVATED, STARTED ON NORVASC. C/O NAUSEA WITHOUT EMESIS, MEDICATED WITH ZOFRAN PO. CURRENTLY IN DIALYSIS SINCE 929. DENIES PAIN. WAS IN CHAIR ALL NIGHT AND MOVED BACK TO BED, USED OVERHEAD LIFT, TO GO TO DIALYSIS. PLAN TO DISCHARGE PT BACK TO [facility] AFTER DIALYSIS.
--- NOTE | 2018-07-16 12:45 | NUR ---
RETURNED TO ROOM ICU 1 FOLLOWING DIALYSIS, CALLED MARCELL/PIPE LINE GAUGER TO [facility] FOR DISCHARGE.
--- NOTE | 2018-07-16 13:00 | NUR ---
PER MARCELL VOGEL/SHOWER SCREEN INSTALLER, [facility] WILL ARRIVE AT 1330 WITH WHEELCHAIR TRANSPORT BACK TO [facility]. MARCELL TO CALL [facility] AND PATIENT'S BROTHER.
--- NOTE | 2018-07-16 13:20 | NUR ---
PROVIDED PT [facility] DISCHARGE INSTRCTIONS, ANSWERED ALL QUESTIONS AND INSTRUCTED TO PROVIDE DC INSTRUCTIONS TO [facility] FOR ADJUSTING MEDICATIONS AND THAT [facility] HAS BEEN FAXED TO [facility] FOR RX.
--- NOTE | 2018-07-16 13:53 | NUR ---
PATIENT PICKED UP BY [facility] FOR RIDE BACK TO [facility].
[2018-07-17] MEDS ORDERED: OXYCODONE HCL E10 MG PO (07:25)
== END 2018-07-16 14:00 | disposition home or self-care (01) | DRG 917 ==
LOC: ER 09:17 → ICUW 13:18 → ICUE 13:18
PROVIDERS: Internal Medicine Nephrology; Physician Assistant; ADMIT Internal Medicine
PROC: 5A1D70Z Performance of Urinary Filtration, Intermittent, Less than 6 Hours Per Day (ICD-10-PCS; principal; 2018-07-13)
PROC: 30233N1 Transfusion of Nonautologous Red Blood Cells into Peripheral Vein, Percutaneous Approach (ICD-10-PCS; 2018-07-13)
PROC: 5A1D70Z Performance of Urinary Filtration, Intermittent, Less than 6 Hours Per Day (ICD-10-PCS; 2018-07-15)
DX: T40.7X1A Poisoning by cannabis (derivatives), accidental (unintentional), initial encounter (principal); G92 Toxic encephalopathy; N18.6 End stage renal disease; I13.2 Hypertensive heart and chronic kidney disease with heart failure and with stage 5 chronic kidney disease, or end stage renal disease; I50.32 Chronic diastolic (congestive) heart failure; K76.6 Portal hypertension; N25.81 Secondary hyperparathyroidism of renal origin; N17.9 Acute kidney failure, unspecified; Z51.5 Encounter for palliative care; Z99.2 Dependence on renal dialysis; J44.9 Chronic obstructive pulmonary disease, unspecified; Z86.73 Personal history of transient ischemic attack (TIA), and cerebral infarction without residual deficits; D63.1 Anemia in chronic kidney disease; I48.2 Chronic atrial fibrillation; E03.9 Hypothyroidism, unspecified; E87.5 Hyperkalemia; F17.210 Nicotine dependence, cigarettes, uncomplicated; G25.81 Restless legs syndrome; G47.00 Insomnia, unspecified; K70.30 Alcoholic cirrhosis of liver without ascites; N40.0 Benign prostatic hyperplasia without lower urinary tract symptoms; I49.8 Other specified cardiac arrhythmias; Z98.84 Bariatric surgery status; F11.10 Opioid abuse, uncomplicated; E87.70 Fluid overload, unspecified; I25.10 Atherosclerotic heart disease of native coronary artery without angina pectoris; I95.9 Hypotension, unspecified
CPT/HCPCS: 36415; 36430; 36600; 51702; 70450; 71045; 80048; 80053; 80069; 80400; 82140; 82533; 82803; 82947; 83735; 84100; 84145; 84436; 84484; 85014; 85018; 85025; 86850; 86900; 86901; 86923; 93005; 93010; 93308; 94640; 96374-59; 96375-59; 96376-59; 97110; 97162; 97530; 99285-25; J0610; J0834; J0881; J1644; J1815; J2405; J2765; J7030; J7042; J7799; P9016

== ENCOUNTER 2018-07-16 19:50 | Inpatient (IN) | payer MEDICARE, OTHER ==
[~2018-07-16] VITALS: Ht 182.9 cm; Wt 84.0 kg
[~2018-07-16 19:50] MED LIST changes: +LEVSOD150 PO; +LO-DOSE ASPIRIN81 MG PO
[2018-07-16 22:47] LABS: BASOPHILS ABSOLUTE AUTO 0.04 K/mm3 (0.00-0.23); BASOPHILS PERCENT AUTO 0 % (0-2); EOSINOPHILS ABSOLUTE AUTO 0.02 K/mm3 (0.00-0.68); EOSINOPHILS PERCENT AUTO 0 % (0-6); Hematocrit 34.4 % (37.0-53.0); Hemoglobin 10.5 g/dL (13.5-17.5); IMMATURE GRAN ABSOLUTE AUTO 0.19 K/mm3 (0.00-0.10); IMMATURE GRAN PERCENT AUTO 2 % (0-1); LYMPHOCYTES ABSOLUTE AUTO 0.67 K/mm3 (0.84-5.20); LYMPHOCYTES PERCENT AUTO 8 % (21-46); MONOCYTES ABSOLUTE AUTO 0.61 K/mm3 (0.16-1.47); MONOCYTES PERCENT AUTO 7 % (4-13); Mean Corpuscular HGB 28.6 pg (26.0-34.0); Mean Corpuscular HGB Conc 30.5 g/dL (31.5-36.5); Mean Corpuscular Volume 94 fL (80-100); Mean Platelet Volume 11.8 fL (9.1-12.4); NEUTROPHILS ABSOLUTE AUTO 7.46 K/mm3 (1.96-9.15); NEUTROPHILS PERCENT AUTO 83 % (41-73); Platelet Count 237 K/mm3 (150-400); RDW Coefficient Variation 15.4 % (11.7-14.2); RDW Standard Deviation 53.2 fL (35.1-46.3); Red Blood Cell Count 3.67 M/mm3 (4.30-5.90); White Blood Cell Count 8.99 K/mm3 (4.00-11.30)
[2018-07-16 23:07] LABS: Albumin, Blood 2.3 g/dL (3.4-5.0); Albumin/Globulin Ratio 0.7 (0.8-1.8); Bilirubin, Total 0.4 mg/dL (0.1-1.0); Calcium, Blood 8.2 mg/dL (8.5-10.1); Creatinine, Blood 5.26 mg/dL (0.60-1.20); Globulin, Blood 3.3 g/dL (2.2-4.0); Potassium, Blood 4.3 mmol/L (3.5-5.5); Total Protein, Blood 5.6 g/dL (6.4-8.2); Troponin I 0.075 ng/mL (0.000-0.040)
[2018-07-16 23:08] LABS: International Normalized Ratio 0.97; Prothrombin Time Results 10.3 Sec (9.7-11.5)
--- NOTE | 2018-07-17 01:08 | NUR ---
PATIENT WAS DC THIS THURSDAY MORNING 07/16/18 AND ADMIT THIS SHIFT. THREE PERSON TRANSFER FROM RKIMBALL TO BED. W/C BOUND AND ONE ASSIST STAND PIVOT TO BSC. AXO X3. PATIENT REPORTS HAD DIALYSIS 07/16 AM. ORIENTED TO ROOM AND CALL LIGHT SYSTEM. NS STARTED AT 150 mL/HR X ONE BAG. CONTACT PRECAUTIONS. CALL LIGHT IN REACH. WILL CONTINUE TO MONITOR.
--- NOTE | 2018-07-17 02:32 | NUR ---
GI CONSULT CALLED IN; REASON MELENA
--- NOTE | 2018-07-17 02:32 | NUR ---
[facility]SULT CALLED IN AND DR DALY IS NOT AVAILABLE ON WEEKEND PER ANSWERING SERVICE.
--- NOTE | 2018-07-17 03:33 | NUR ---
SHIFT SUMMARY PATIENT IS A ADMIT THAT WAS DC 07/16/18 AM AND BACK. AXOX 3 AND W/C BOUND AT BASELINE PER PATIENT. ONE PERSON STAND/PIVOT TO BSC. NPO. DARK TARRY STOOLS. PIV REMAINS INTACT. NS INFUSING AT 150 mL/HR X ONE BAG. DIALYSIS PATIENT. GI CONSULT CALLED INTO DR POSADAS ANSWERING SERVICE. [facility] ANSWERING SERVICE REPORTS DR DALY DOES NOT WORK ON THE WEEKEND. IV PROTONIX 40 MG VIAL GIVEN PER EMAR. IV ZOFRAN GIVEN PER SCHEDULE EMAR. NO PAIN MEDICATION LISTED IN EMAR OR IV ZOFRAN PRN. PATIENT ANXIOUS. CALL LIGHT IN REACH. BED IN LOWEST POSITION. WILL CONTINUE TO MONITOR UNTIL DAY SHIFT NURSE ASSUMES CARE.
--- NOTE | 2018-07-17 04:32 | NUR ---
PATIENT PUSHING CALL LIGHT WHEN HE DID NOT NEED ASSISTANCE.
[2018-07-17 04:47] LABS: BASOPHILS ABSOLUTE AUTO 0.05 K/mm3 (0.00-0.23); BASOPHILS PERCENT AUTO 1 % (0-2); EOSINOPHILS ABSOLUTE AUTO 0.05 K/mm3 (0.00-0.68); EOSINOPHILS PERCENT AUTO 1 % (0-6); Hematocrit 33.5 % (37.0-53.0); Hemoglobin 10.1 g/dL (13.5-17.5); IMMATURE GRAN ABSOLUTE AUTO 0.22 K/mm3 (0.00-0.10); IMMATURE GRAN PERCENT AUTO 3 % (0-1); LYMPHOCYTES PERCENT AUTO 7 % (21-46); MONOCYTES PERCENT AUTO 7 % (4-13); Mean Corpuscular HGB 28.5 pg (26.0-34.0); Mean Corpuscular HGB Conc 30.1 g/dL (31.5-36.5); Mean Corpuscular Volume 95 fL (80-100); Mean Platelet Volume 11.4 fL (9.1-12.4); NEUTROPHILS ABSOLUTE AUTO 7.42 K/mm3 (1.96-9.15); NEUTROPHILS PERCENT AUTO 83 % (41-73); Platelet Count 238 K/mm3 (150-400); RDW Coefficient Variation 15.4 % (11.7-14.2); RDW Standard Deviation 53.4 fL (35.1-46.3); Red Blood Cell Count 3.54 M/mm3 (4.30-5.90); White Blood Cell Count 8.94 K/mm3 (4.00-11.30)
--- NOTE | 2018-07-17 04:56 | NUR ---
PATIENT REPORTS ABDOMINAL PAIN AND N/V. HOSPITALIST DR HOGAN ORDERED FENTANYL 25 MCG IV X ONE AND ZOFRAN IV 4 MG X ONE PRN.
[2018-07-17] MEDS ORDERED: OXYCODONE HCL E10 MG PO (07:25)
--- NOTE | 2018-07-17 07:42 | NUR ---
PT PAIN DR. TY CALLED & MADE AWARE OF PT PAIN LEVEL & LOCATION. PT STATES PAIN IN HIS LOWER CHEST. PT DESCRIBES IT "ACHY" & NOT NORMAL WHEN AT HOME. DR. TY NOTIFIED & STATED HE WILL "TAKE A LOOK" INTO THE PT CHART. HOME DOSE OF OXYCODONE ORDERED PER DR. TY.
--- NOTE | 2018-07-18 03:50 | NUR ---
SHIFT SUMMARY PATIENT HAD NO ACUTE CHANGES OBSERVED THIS SHIFT. AXO X3 AND W/C BOUND BASELINE. STAND PIVOT TO BSC WITH ONE PERSON ASSIST. PATIENT REPORTS FEELING BETTER THIS SHIFT. NPO>MIDNIGHT FOR EGD. FENTANYL 25 MCG GIVEN PER EMAR RUQ PAIN X ONE. PIV REMAINS INTACT. IV PROTONIC 40 MG VIAL. VSS/AFEBRILE. CALL LIGHT IN REACH. BED IN LOWEST POSITION. WILL CONTINUE TO MONITOR UNTIL DAY SHIFT NURSE ASSUMES CARE.
[2018-07-18 05:10] LABS: Hematocrit 24.9 % (37.0-53.0); Hemoglobin 7.5 g/dL (13.5-17.5)
[2018-07-18 05:27] LABS: Anion Gap 10 mmol/L (6-16); Blood Urea Nitrogen 86 mg/dL (8-24); Bun/Creatinine Ratio 12.8 (12.0-20.0); CO2, Blood 27 mmol/L (21-32); Calcium, Blood 8.1 mg/dL (8.5-10.1); Chloride, Blood 106 mmol/L (98-108); Creatinine, Blood 6.72 mg/dL (0.60-1.20); Glomerular Filtration Rate 9 (60-); Glucose, Blood 74 mg/dL (70-99); Magnesium, Blood 2.1 mg/dL (1.6-2.4); Phosphorus, Blood 4.7 mg/dL (2.5-4.9); Sodium, Blood 143 mmol/L (136-145)
--- NOTE | 2018-07-18 13:13 | NUR ---
PATIENT RECEIVED ORAL INTAKE: PATIENT NPO SINCE MIDNIGHT ON MEDICAL FLOOR; PATIENT INFORMED HE WAS NPO R/T EGD PROCEDURE SCHEDULED FOR TODAY (07/18) IN PM; STATUS BOARD REFLECTS NPO DIET. PATIENT RECEIVED ORAL INTAKE (SNACK - 1 PACKAGE MALVIN CRACKERS & 1 SERVING PUDDING) DURING DIALYSIS. MULTIPLE ATTEMPTS TO CONTACT DAY SURGERY-NO ANSWER AT MAIN PHONE NUMBER. WCTM.
--- NOTE | 2018-07-18 15:51 | NUR ---
PT BACK TO MED FLOOR AFTER DUONEB COMPLETED. NS X1 LITER CLAMPED. ENDO ADMISSION COMPLETED AND PT WILL HAVE EGD W/MAC AFTER ORTHO OR CASE IS COMPLETED. PT'S PROCEDURE WAS DELAYED DUE TO ER EMERGENT CASE.
--- NOTE | 2018-07-18 19:23 | NUR ---
07/18/181922 Leatha Strauss MAC CASE WITH DR REYES IN ENDO ROOM 1
--- NOTE | 2018-07-18 19:28 | NUR ---
SHIFT SUMMARY: NO ACUTE CHNAGES TO REPORT THIS SHIFT. PT A&O; COOPERATIVE WITH CARE. MEDICATED FOR PAIN PER EMAR. DIALYSIS TODAY; 2UNITS PRBCS ADMINISTERED WITH DIALYSIS. EGD SCHEDULED FOR THIS SHIFT; PT TAKEN AT APPROXIMATELY 1800. REPORT GIVEN TO ONCOMING RN.
--- NOTE | 2018-07-19 04:29 | NUR ---
SHIFT SUMMARY A/O, ABLE TO MAKE NEEDS KNOWN. COOPERATIVE WITH CARES. CALLS AND ANSWERS QUESTIONS APPROPRIATELY. C/O PAIN/DISCOMFORT; MEDICATED PER EMAR. ENDOSCOPY COMPLETED; PATIENT CAME BACK TO ROOM UNDER THE IMPRESSION THAT HE WOULD BE ABLE TO HAVE A DINNER TRAY. DINNER TRAY WAS UNAVAILABLE. PATIENT BECAME VERY UPSET WITH STAFF, DEMANDING FOOD. DAY SURGERY RN PLACED VERBAL ORDER FOR RENAL DIET PER DR. ARROYO. PATIENT GIVEN FOOD ITEMS AVAILABLE THROUGH OVERNIGHT PANTRY; PATIENT SATISFIED. HAD INCONTINENT BM THAT WAS X-LARGE OVERNIGHT. BED CHANGE AND BATH COMPLETED FOR PATIENT. HYPERTENSIVE NOTED. ALL OTHER VITALS WNL. NO OTHER ACUTE CHANGES OVERNIGHT. BED IN LOWEST POSITION. ALARM ON. CALL LIGHT AND BELONGINGS WITHIN REACH. WCTM. REPORT TO ONCOMING RN.
[2018-07-19 05:23] LABS: Hematocrit 29.7 % (37.0-53.0)
[2018-07-19 05:48] LABS: Albumin, Blood 2.3 g/dL (3.4-5.0); Anion Gap 8 mmol/L (6-16); Blood Urea Nitrogen 65 mg/dL (8-24); Bun/Creatinine Ratio 12.1 (12.0-20.0); CO2, Blood 30 mmol/L (21-32); Chloride, Blood 108 mmol/L (98-108); Creatinine, Blood 5.39 mg/dL (0.60-1.20); Glomerular Filtration Rate 11 (60-); Glucose, Blood 69 mg/dL (70-99); Magnesium, Blood 2.2 mg/dL (1.6-2.4); Phosphorus, Blood 4.9 mg/dL (2.5-4.9); Potassium, Blood 3.7 mmol/L (3.5-5.5); Sodium, Blood 146 mmol/L (136-145)
--- NOTE | 2018-07-19 16:19 | NUR ---
SHIFT SUMMARY PATIENT A&O X3. C/O CHRONIC PAIN TO SHOULDERS AND HIPS. RN MEDICATED PER May. DENIES SOB OR NAUSEA. CLEAR LIQUID DIET FOR COLONOSCOPY TOMORROW. DENIES ANY BLOODY/BLACK STOOL THIS SHIFT. USING URINAL APPROPRIATELY. VSS. NEW DRESSING PLACED TO ABRASION ON LEFT KNEE. BED ALARM IN PLACE, CALL LIGHT IS WITHIN REACH. NO ACUTE CHANGES THIS SHIFT.
--- NOTE | 2018-07-20 05:27 | NUR ---
SHIFT SUMMARY: STACIA COMPLETED @ 2100 ON 07/19. PT HAS HAD LIQUID, DARK STOOL ONGOING T/O THE NIGHT. PT TO HAVE COLONOSCOPY TODAY @ 1300; NPO AFTER BREAKFAST. PT IS INDEPENDENT c W/C; OUT TO SMOKE SEVERAL TIMES TONIGHT. TREATED FOR PAIN 2X c 10 MG OXYCODONE, REPORTS PAIN TO HIPS, BACK, AND KNEES. NO OTHER CHANGES TO REPORT. WILL CONT TO MONITOR AND PROVIDE CARE UNTIL PRESUMED BY ONCOMING RN.
--- NOTE | 2018-07-20 05:30 | NUR ---
REFUSING LABS PT REFUSING LABS VIA LAB DRAW THIS AM. REPORTS HE HAS BEEN GETTING LABS DRAWN VIA L ARM FISTULA DURING DIALYSIS. WILL REPORT THIS TO DAY SHIFT RN TO PASS ON TO GAS TREATER. CABLE SWAGER VARGHESE MILLS AWARE.
[2018-07-20 09:18] LABS: Hematocrit 31.2 % (37.0-53.0); Hemoglobin 9.7 g/dL (13.5-17.5); Mean Corpuscular HGB 28.8 pg (26.0-34.0); Mean Corpuscular HGB Conc 31.1 g/dL (31.5-36.5); Mean Corpuscular Volume 93 fL (80-100); Mean Platelet Volume 10.8 fL (9.1-12.4); Platelet Count 172 K/mm3 (150-400); RDW Standard Deviation 50.9 fL (35.1-46.3); Red Blood Cell Count 3.37 M/mm3 (4.30-5.90); White Blood Cell Count 5.53 K/mm3 (4.00-11.30)
[2018-07-20 09:36] LABS: Albumin, Blood 2.5 g/dL (3.4-5.0); Anion Gap 10 mmol/L (6-16); Blood Urea Nitrogen 67 mg/dL (8-24); Bun/Creatinine Ratio 11.6 (12.0-20.0); CO2, Blood 27 mmol/L (21-32); Calcium, Blood 7.9 mg/dL (8.5-10.1); Chloride, Blood 102 mmol/L (98-108); Creatinine, Blood 5.76 mg/dL (0.60-1.20); Glomerular Filtration Rate 10 (60-); Glucose, Blood 119 mg/dL (70-99); Magnesium, Blood 1.9 mg/dL (1.6-2.4); Phosphorus, Blood 4.4 mg/dL (2.5-4.9); Potassium, Blood 3.6 mmol/L (3.5-5.5); Sodium, Blood 139 mmol/L (136-145)
--- NOTE | 2018-07-20 13:23 | NUR ---
History, Chart, Medications and Allergies reviewed before start of procedure. Patient confirms NPO status and agrees with scheduled surgery.
--- NOTE | 2018-07-20 13:34 | NUR ---
07/20/18 1334 Chloe Manzo MONITOR INTACT WITH CONTINUOUS PULSE OXIMETRY AND INTERMITTENT BP.
--- NOTE | 2018-07-20 17:31 | NUR ---
SHIFT SUMMARY PT HAS HAD NO ACUTE CHANGES THIS SHIFT, MEDICATED 2X FOR PAIN, NO OTHER COMPLAINTS. PT TO HAVE REPEAT COLONOSCOPY THURS AND IS TO REMAIN ON LIGHT CLEARS DIET, PT IS AWARE. PT HAS BEEN IND IN W/C AND OUTSIDE OFF/ON T/O SHIFT, IS OUTSIDE AT THIS TIME, WILL CONT TO MONITOR UNTIL REPORT GIVEN TO ANITA GUTIERRES.
--- NOTE | 2018-07-21 05:16 | NUR ---
BOWEL MOVEMENT POST GOLYTELY PT HAS FIRST BM SINCE ADMINISTERING GOLYTELY @ 1999. VISUALIZED BM DARK RED, LARGE, LOOSE CONSISTENCY.
--- NOTE | 2018-07-21 05:30 | NUR ---
SHIFT SUMMARY: PT GIVEN 0.5 BOTTLE OF GOLYTELY @ 2000 PER ORDERS. PT HAD INCONTINENT BM OVERNIGHT; DARK RED, LOOSE, LARGE. PT INDEPEDENT c W/C, WHEELS SELF OUT TO SMOKE. LIGHT CLEAR LIQUIDS ONLY. NO OTHER CHNAGES TO REPORT. WILL CONT TO MONITOR AND PROVIDE CARE UNTIL PRESUMED BY ONCOMING RN.
[2018-07-21 08:47] LABS: Hemoglobin 8.9 g/dL (13.5-17.5)
[2018-07-21 09:01] LABS: Albumin, Blood 2.3 g/dL (3.4-5.0); Anion Gap 9 mmol/L (6-16); Blood Urea Nitrogen 41 mg/dL (8-24); Bun/Creatinine Ratio 9.6 (12.0-20.0); CO2, Blood 31 mmol/L (21-32); Calcium, Blood 7.7 mg/dL (8.5-10.1); Chloride, Blood 100 mmol/L (98-108); Creatinine, Blood 4.26 mg/dL (0.60-1.20); Glomerular Filtration Rate 15 (60-); Glucose, Blood 78 mg/dL (70-99); Magnesium, Blood 1.7 mg/dL (1.6-2.4); Phosphorus, Blood 3.4 mg/dL (2.5-4.9); Potassium, Blood 3.6 mmol/L (3.5-5.5); Sodium, Blood 140 mmol/L (136-145)
--- NOTE | 2018-07-21 16:41 | NUR ---
SHIFT SUMMARY PT OUTSIDE TO SMOKE TODAY. HAS BEEN TAKING LIGHT COLORED CLEAR LIQUIDS ONLY. STATES HE CAN'T STAND THE THOUGHT OF TAKING GOLYTELY AGAIN. OKED BY DR. CORNELIUS THAT IT CAN BE MIXED WITH LEMON EEK GATORADE. PT REPORTS HIS R ARM IS VERY DIFFICULT TO MOVE AND HAS TROUBLE REACHING ITEMS ON HIS TABLE. PLANS FOR COLONOSCOPY TOMORROW AND HEMO DIALYSIS.
--- NOTE | 2018-07-22 03:44 | NUR ---
SHIFT SUMMARY PATIENT HAD NO ACUTE CHANGES OBSERVED THIS SHIFT. AXO X3 AND W/C BOUND; STAND PIVOT TO BS. FINISHED GOLTYELY. HAVING LIQUID BM'S BROWN WITH BLOOD. REPORTED R ARM PAIN AND OXY 5 MG PO PRN GIVEN PER EMAR. VSS/AFEBRILE. DENIES SOB AND N/V. TAKES MEDS WHOLE WITH WATER. NPO>CLEAR LIQUID BREAKFAST. COLONOSCOPY SCHEDULE. GOES OUTSIDE WITH W/C TO SMOKE. PIV INTACT. CALL LIGHT IN REACH. WILL CONTINUE TO MONITOR UNTIL DAY SHIFT NURSE ASSUMES CARE.
[2018-07-22 09:39] LABS: Hematocrit 27.4 % (37.0-53.0); Hemoglobin 8.6 g/dL (13.5-17.5)
[2018-07-22 10:19] LABS: Albumin, Blood 2.3 g/dL (3.4-5.0); Anion Gap 10 mmol/L (6-16); Blood Urea Nitrogen 51 mg/dL (8-24); Bun/Creatinine Ratio 10.1 (12.0-20.0); CO2, Blood 32 mmol/L (21-32); Calcium, Blood 7.9 mg/dL (8.5-10.1); Chloride, Blood 101 mmol/L (98-108); Creatinine, Blood 5.03 mg/dL (0.60-1.20); Glomerular Filtration Rate 12 (60-); Glucose, Blood 71 mg/dL (70-99); Magnesium, Blood 1.8 mg/dL (1.6-2.4); Phosphorus, Blood 5.4 mg/dL (2.5-4.9); Potassium, Blood 3.5 mmol/L (3.5-5.5); Sodium, Blood 143 mmol/L (136-145)
--- NOTE | 2018-07-22 10:34 | NUR ---
CALLED DR. FERNÁNDEZ DIALYSIS WAS CANCELLED TODAY. PT SCHEDULED FOR A COLONOSCOPY TODAY. BOWEL PREP COMPLETED ON PREVIOUS SHIFT. HGB LAB IS 8.6 AND HCT IS 27.4. DR FERNÁNDEZ PREFERS PT RECEIVE ORDERED UNIT OF BLOOD DURING DIALYSIS THAT IS SCHEDULED FOR TOMORROW.
--- NOTE | 2018-07-22 16:07 | NUR ---
CALLED HOSPITALIST PT REFUSING RENAL DIET. INSISTING ON REGULAR DIET UPON DIET ADVANCEMENT, FOLLOWING COLONOSCOPY PROCEDURE. INFORMED HOSPITALIST. ORDER WILL BE ENTERED FOR REGULAR DIET AT PT'S REQUEST.
--- NOTE | 2018-07-22 16:22 | NUR ---
07/22/18 1622 Taye Foster 3-LEAD EKG REVIEWED WITH PHYSICIAN PRIOR TO START OF PROCEDURE.Patient to ENDO 1History, Chart, Medications and Allergies reviewed before start of procedure.History, Chart, Medications and Allergies reviewed before start of procedure.MONITOR INTACT WITH CONTINUOUS PULSE OXIMETRY AND INTERMITTENT BP.O2 VIA N/C INTACT THROUGHOUT SEDATION/PROCEDURE.See Anesthesia record
--- NOTE | 2018-07-22 19:00 | NUR ---
SHIFT SUMMARY PT HAD A COLONOSCOPY TODAY. A FEW POLYPS WERE FOUND. PT IS A&O X4. USES A WHEELCHAIR. FULL CODE. 73 YR OLD MALE. ON REGULAR DIET, REFUSES RENAL DIET. ADMITTED FOR MELENA. CONTACT PRECAUTIONS FOR MRSA IN THE NARES. DIALYSIS PT. WILL HAVE DIALYSIS TOMORROW. DIALYSIS NURSE WILL GIVE UNIT OF RBC AND PERFORM LAB DRAW. FISTULA IN LEFT FOREARM. HX:TARRY STOOLS, ESRD, COPD, HTN, AFIB, MULTIPLE FALLS. ONLY GIVE LASIX ON NON-DIALYSIS DAYS (SEE EMAR ORDER).
--- NOTE | 2018-07-23 05:14 | NUR ---
SHIFT SUMMARY PT ADMITTED FOR MELENA. CONTACT ISOLATION FOR MRSA IN THE NARES AND THROAT. FULL CODE. REGULAR DIET. DIALYSIS TODAY, FISTUAL TO L FA. TAKES MEDICATIONS WHOLE. 1 PERSON ASSIST TO INDEPENDENT WITH STAND PIVOT TRANSFER TO W/C. SMOKER-GOS OUT INDEPENDENTLY. PLAN IS TO DC TO [facility] TODAY. PT IS TO RECIEVE ONE UNIT OF BLOOD AND HAVE LABS DRAWN DURING DIALYSIS. PT IS ONLY TO RECIEVE LASIX MEDICATION ON NON-DIALYSIS DAYS PER REPORT. THE PT ONLY SLEPED A COUPLE OF HOURS LAST NIGHT, STATED THAT IT IS ALWAYS HARD FOR HIM TO SLEEP IN THE HOSPITAL. THE PT WAS MEDICATED FOR PAIN X2 SO FAR THIS SHIFT PER EMAR. THE PT WAS VERY EXCITED TO GET TO EAT AFTER REPORTEDLY NOT BEING ABLE TO IN 10 DAYS. THE PT IS CURRENTLY OUTSIDE SMOKING. NO APPARENT SIGNS OF ACUTE DISTRESS. ABLE TO MAKE NEEDS KNOWN AND CALL LIGHT IN REACH.
--- NOTE | 2018-07-23 09:20 | NUR ---
TOOK PATIENT DOWN FOR DIALYSIS. BLOOD SLIP SENT TO PCU AND 1 UNIT PRBC'S TO BE GIVEN.
[2018-07-23 10:03] LABS: Hematocrit 25.9 % (37.0-53.0); Hemoglobin 8.1 g/dL (13.5-17.5)
[2018-07-23 10:13] LABS: Albumin, Blood 2.4 g/dL (3.4-5.0); Anion Gap 14 mmol/L (6-16); Blood Urea Nitrogen 61 mg/dL (8-24); Bun/Creatinine Ratio 10.6 (12.0-20.0); CO2, Blood 26 mmol/L (21-32); Calcium, Blood 7.8 mg/dL (8.5-10.1); Chloride, Blood 103 mmol/L (98-108); Creatinine, Blood 5.77 mg/dL (0.60-1.20); Glomerular Filtration Rate 10 (60-); Glucose, Blood 111 mg/dL (70-99); Phosphorus, Blood 5.6 mg/dL (2.5-4.9); Potassium, Blood 4.3 mmol/L (3.5-5.5); Sodium, Blood 143 mmol/L (136-145)
--- NOTE | 2018-07-23 11:30 | NUR ---
Jeromy is receiving HD prior to his discharge today back to [place]. He was admitted with melena, and he had a colonoscopy done with polyps removed, however the prep was less than optimal per MD report. He will follow up with GI for possible further testing. Jeromy reports he receives HD 3x/wk at [facility].
--- NOTE | 2018-07-23 13:15 | NUR ---
PATIENT D/C'D TO [facility], REPORT CALLED TO [facility]. D/C INSTRUCTIONS FAXED TO [facility]. D/C INSTRUCTIONS AND EDUCATION DISCUSSED WITH PATIENT AND COPY PROVIDED. PATIENT DENIES ANY FURTHER QUESTIONS OR CONCERNS.
--- NOTE | 2018-07-23 14:20 | NUR ---
Pt. is improved and doing much better encouraged pt. and prayed for him
== END 2018-07-23 13:20 | disposition home or self-care (01) | DRG 377 ==
LOC: ER 19:50 → MEDS 19:51
PROVIDERS: Emergency Medicine; Internal Medicine Nephrology; Student in an Organized Health Care Education/Training Program; ADMIT Hospitalist
PROC: 0DJ08ZZ Inspection of Upper Intestinal Tract, Via Natural or Artificial Opening Endoscopic (ICD-10-PCS; 2018-07-18)
PROC: 30233N1 Transfusion of Nonautologous Red Blood Cells into Peripheral Vein, Percutaneous Approach (ICD-10-PCS; principal; 2018-07-18 13:00)
PROC: 0DJD8ZZ Inspection of Lower Intestinal Tract, Via Natural or Artificial Opening Endoscopic (ICD-10-PCS; 2018-07-18 13:00)
PROC: 0DD58ZX Extraction of Esophagus, Via Natural or Artificial Opening Endoscopic, Diagnostic (ICD-10-PCS; 2018-07-20)
PROC: 0DDK8ZX Extraction of Ascending Colon, Via Natural or Artificial Opening Endoscopic, Diagnostic (ICD-10-PCS; 2018-07-20)
PROC: 0DDL8ZX Extraction of Transverse Colon, Via Natural or Artificial Opening Endoscopic, Diagnostic (ICD-10-PCS; 2018-07-20)
PROC: 0DDN8ZX Extraction of Sigmoid Colon, Via Natural or Artificial Opening Endoscopic, Diagnostic (ICD-10-PCS; 2018-07-20)
PROC: 0DDM8ZX Extraction of Descending Colon, Via Natural or Artificial Opening Endoscopic, Diagnostic (ICD-10-PCS; 2018-07-20)
PROC: 0DDK8ZX Extraction of Ascending Colon, Via Natural or Artificial Opening Endoscopic, Diagnostic (ICD-10-PCS; 2018-07-22)
PROC: 0DDL8ZX Extraction of Transverse Colon, Via Natural or Artificial Opening Endoscopic, Diagnostic (ICD-10-PCS; 2018-07-22)
PROC: 0DDN8ZX Extraction of Sigmoid Colon, Via Natural or Artificial Opening Endoscopic, Diagnostic (ICD-10-PCS; 2018-07-22)
PROC: 0DDM8ZX Extraction of Descending Colon, Via Natural or Artificial Opening Endoscopic, Diagnostic (ICD-10-PCS; 2018-07-22)
PROC: 0W3P8ZZ Control Bleeding in Gastrointestinal Tract, Via Natural or Artificial Opening Endoscopic (ICD-10-PCS; 2018-07-22)
DX: K92.2 Gastrointestinal hemorrhage, unspecified (principal); N18.6 End stage renal disease; D62 Acute posthemorrhagic anemia; K76.6 Portal hypertension; I24.8 Other forms of acute ischemic heart disease; I12.0 Hypertensive chronic kidney disease with stage 5 chronic kidney disease or end stage renal disease; Z98.84 Bariatric surgery status; M10.9 Gout, unspecified; E21.3 Hyperparathyroidism, unspecified; K21.9 Gastro-esophageal reflux disease without esophagitis; M19.90 Unspecified osteoarthritis, unspecified site; Z79.82 Long term (current) use of aspirin; I48.91 Unspecified atrial fibrillation; N40.0 Benign prostatic hyperplasia without lower urinary tract symptoms; G25.81 Restless legs syndrome; K70.30 Alcoholic cirrhosis of liver without ascites; E03.9 Hypothyroidism, unspecified; F17.210 Nicotine dependence, cigarettes, uncomplicated; E87.70 Fluid overload, unspecified; E88.09 Other disorders of plasma-protein metabolism, not elsewhere classified; Z99.2 Dependence on renal dialysis; Z86.73 Personal history of transient ischemic attack (TIA), and cerebral infarction without residual deficits; K63.5 Polyp of colon; K64.8 Other hemorrhoids; I73.9 Peripheral vascular disease, unspecified
CPT/HCPCS: 36415; 71046; 74176; 80053; 80069; 82947; 83735; 83880; 84132; 84484; 85014; 85018; 85025; 85027; 85610; 85730; 86850; 86900; 86901; 86923; 88305; 93005; 93010; 94640; 94760; 96361; 96372; 96374; 96375; 96376; 99285-25; C9113; G0378; J0881; J2370; J2405; J2704; J3010; J7030; J7120; P9016

== ENCOUNTER → 2018-08-21 | Outpatient (CLI) | payer MEDICARE, OTHER ==
[~2018-08-21] MED LIST changes: +Chantix0.5 MG PO; +OXYCODONE HCL E10 MG PO
[2018-08-21 08:42] LABS: BASOPHILS ABSOLUTE AUTO 0.08 K/mm3 (0.00-0.23); BASOPHILS PERCENT AUTO 1 % (0-2); EOSINOPHILS ABSOLUTE AUTO 0.23 K/mm3 (0.00-0.68); EOSINOPHILS PERCENT AUTO 4 % (0-6); Hematocrit 29.4 % (37.0-53.0); Hemoglobin 8.8 g/dL (13.5-17.5); IMMATURE GRAN ABSOLUTE AUTO 0.08 K/mm3 (0.00-0.10); IMMATURE GRAN PERCENT AUTO 1 % (0-1); LYMPHOCYTES ABSOLUTE AUTO 0.83 K/mm3 (0.84-5.20); LYMPHOCYTES PERCENT AUTO 13 % (21-46); MONOCYTES ABSOLUTE AUTO 0.45 K/mm3 (0.16-1.47); MONOCYTES PERCENT AUTO 7 % (4-13); Mean Corpuscular HGB 28.9 pg (26.0-34.0); Mean Corpuscular HGB Conc 29.9 g/dL (31.5-36.5); Mean Corpuscular Volume 97 fL (80-100); Mean Platelet Volume 11.5 fL (9.1-12.4); NEUTROPHILS ABSOLUTE AUTO 4.51 K/mm3 (1.96-9.15); NEUTROPHILS PERCENT AUTO 73 % (41-73); Platelet Count 195 K/mm3 (150-400); RDW Standard Deviation 71.3 fL (35.1-46.3); Red Blood Cell Count 3.04 M/mm3 (4.30-5.90); White Blood Cell Count 6.18 K/mm3 (4.00-11.30)
== END | disposition home or self-care (01) ==
LOC: LAB DAV 06:00
PROVIDERS: Internal Medicine Nephrology
DX: D64.9 Anemia, unspecified (principal)
CPT/HCPCS: 85025

== ENCOUNTER 2018-09-21 13:06 | Day surgery (SDC) | payer MEDICARE, OTHER ==
--- NOTE | 2018-09-21 11:28 | NUR ---
REFUSAL OF PRBC: PT STATES "I CAN'T WAIT FOR THIS BLOOD, I HAVE A RIDE COMING AT NOON." THIS RN OFFERED TO ASSIST PT WITH SCHEDULING A RIDE FOR LATER TODAY BUT PT DENIED THIS HELP. PT PROVIDED WITH NUMBER FOR THE [facility] TO CALL BACK LATER TODAY TO SCHEDULE FOR TOMORROW MORNING. PT STATES, "I'LL SEE WHAT I CAN DO." PT LEFT IN HIS MOTORIZED SCOOTER AT 1110. BLOOD BANK NOTIFIED.
[2018-11-08] MEDS ORDERED: ONDA4 PO (22:36)
== END 2018-09-21 16:00 | disposition home or self-care (01) ==
LOC: ATC 13:06
DX: N18.6 End stage renal disease (principal); D64.9 Anemia, unspecified; Z53.29 Procedure and treatment not carried out because of patient's decision for other reasons; F10.20 Alcohol dependence, uncomplicated; K21.9 Gastro-esophageal reflux disease without esophagitis; E78.5 Hyperlipidemia, unspecified; I48.91 Unspecified atrial fibrillation; I25.2 Old myocardial infarction; J44.9 Chronic obstructive pulmonary disease, unspecified; Z87.891 Personal history of nicotine dependence; Z59.0 Homelessness; Z99.2 Dependence on renal dialysis; Z79.899 Other long term (current) drug therapy; Z79.01 Long term (current) use of anticoagulants
CPT/HCPCS: 86850; 86900; 86901; 86923; 99211; J7050

== ENCOUNTER 2018-10-02 10:21 | Inpatient (IN) | payer MEDICARE, OTHER ==
[~2018-10-02] VITALS: Ht 182.9 cm; Wt 99.0 kg
[2018-10-02 10:55] LABS: BASOPHILS ABSOLUTE AUTO 0.03 K/mm3 (0.00-0.23); BASOPHILS PERCENT AUTO 0 % (0-2); EOSINOPHILS ABSOLUTE AUTO 0.17 K/mm3 (0.00-0.68); EOSINOPHILS PERCENT AUTO 2 % (0-6); IMMATURE GRAN ABSOLUTE AUTO 0.05 K/mm3 (0.00-0.10); IMMATURE GRAN PERCENT AUTO 1 % (0-1); LYMPHOCYTES ABSOLUTE AUTO 0.77 K/mm3 (0.84-5.20); LYMPHOCYTES PERCENT AUTO 8 % (21-46); MONOCYTES ABSOLUTE AUTO 0.72 K/mm3 (0.16-1.47); MONOCYTES PERCENT AUTO 8 % (4-13); Mean Corpuscular HGB 30.1 pg (26.0-34.0); Mean Corpuscular HGB Conc 29.6 g/dL (31.5-36.5); Mean Corpuscular Volume 102 fL (80-100); Mean Platelet Volume 11.7 fL (9.1-12.4); NEUTROPHILS ABSOLUTE AUTO 7.69 K/mm3 (1.96-9.15); NEUTROPHILS PERCENT AUTO 82 % (41-73); Platelet Count 222 K/mm3 (150-400); RDW Coefficient Variation 16.7 % (11.7-14.2); RDW Standard Deviation 61.4 fL (35.1-46.3); Red Blood Cell Count 2.66 M/mm3 (4.30-5.90); White Blood Cell Count 9.43 K/mm3 (4.00-11.30)
[2018-10-02 11:08] LABS: International Normalized Ratio 0.88; Prothrombin Time Results 9.4 Sec (9.7-11.5)
[2018-10-02 11:23] LABS: Free Thyroxine 1.19 ng/dL (0.70-1.60)
[2018-10-02 11:27] LABS: Thyroid Stimulating Hormone 1.7 uIU/mL (0.360-4.800)
[2018-10-02 11:30] LABS: Albumin, Blood 2.3 g/dL (3.4-5.0); Albumin/Globulin Ratio 0.7 (0.8-1.8); Bilirubin, Total 0.3 mg/dL (0.1-1.0); Bun/Creatinine Ratio 11.8 (12.0-20.0); Calcium, Blood 7.9 mg/dL (8.5-10.1); Creatinine, Blood 2.71 mg/dL (0.60-1.20); Globulin, Blood 3.2 g/dL (2.2-4.0); Potassium, Blood 3.2 mmol/L (3.5-5.5); Total Protein, Blood 5.5 g/dL (6.4-8.2)
[2018-10-02] MEDS ORDERED: Synthroid/Levo0.2 MG PO (12:30)
[2018-10-02] MEDS ORDERED: CEPH500 PO (12:30)
[2018-10-02] MEDS ORDERED: SPIRIVA RESPIMAT4 GM INH (12:31)
[2018-10-02] MEDS ORDERED: METO50 PO (12:34)
[2018-10-02] MEDS ORDERED: CLOP75 PO (12:36)
[2018-10-02 16:15] LABS: Hematocrit 28.1 % (37.0-53.0); Hemoglobin 8.2 g/dL (13.5-17.5)
[2018-10-02] MEDS ORDERED: AMLO5 PO (16:52)
[2018-10-02] MEDS ORDERED: BISA10S PR (16:54)
[2018-10-02] MEDS ORDERED: ENEMA BOTTLE1 EACH PR (16:55)
[2018-10-02] MEDS ORDERED: Milk Of Ma400 MG/5 M PO (16:55)
[2018-10-02] MEDS ORDERED: OXYC1TAB11 PO (17:04)
--- NOTE | 2018-10-02 18:10 | NUR ---
LAST BP 116/87, P 154, TURNED DILTIAZEM UP TO 15. DISCUSSED WITH DRAPERY EXAMINERRN. HOLLAND.
--- NOTE | 2018-10-02 19:08 | NUR ---
PT IRRITABLE TODAY. C.O. PAIN. RT LEG. COVERED WITH MEPILEX. PT STATES WE MISDIAGNOSED. NOT GI BLEED, JUST HEMOHOROIDS. DR FERNÁNDEZ AT BEDSIDE STATES OTHERWISE. HE AGREED TO ACCEPT THEN. 1 UN[address] BLOOD RUNNING NOW. DR FERNÁNDEZ MENTIONED TO PT EXPECT DIALYSIS TOMORROW AND ANOTHER UNIT PRBC. NO ORDERS FOR THS YET. H/R IRREG. ON CARDIZEM DRIP. MOVED FROM 10 TO 15 AT 1800. H/R INCREASING TO 150. METOPROLOL PUSH GIVEN 1844. BED IN LOW POSITION,C ALL LITE IN REACH, CALLS APPROP.
--- NOTE | 2018-10-02 19:45 | NUR ---
CARE ASSUMPTION / CALL TO MD YOUNG PT A&O X4, IRRITABLE W/ / R LEG PAIN BEING TREATED PER EMAR. WHEN ASKING PT WHAT HELPS MANAGE PAIN THE PT STATES "I DON'T WANT TO TALK ABOUT IT. LEAVE ME ALONE." CONTOUR PATH TAPE MILL OPERATOR SHOWS AFIB, HR 150-160. PT ON CARDIZEM GTT @ 15 MG/HR. 5 MG LOPRESSOR PUSH GIVEN PER EMAR BY CN W/ BRIEF DECREASE IN HR TO 145. HR BACK IN 150'S. CALL TO MD YOUNG W/ ORDERS TO CONTINUE CARDIZEM GTT AND GIVE AN ADDITIONAL ONE TIME LOPRESSOR PUSH NOW. WILL CONTINUE TO MONITOR AND PROVIDE CARE.
--- NOTE | 2018-10-02 22:00 | NUR ---
UPDATE PT ANGRY, STATING NO PAIN MEDICATION HAS BEEN PROVIDED TO HIM "IN DAYS" AND THAT HE'S BEING LIED TO ABOUT MEDICATION. TIME SPENT REVIEWING W/ PT MEDICATION ALREADY TAKEN PER EMAR DURING DAY SHIFT AND DISCUSSING W/ PT PAIN MEDICATION AVAILABLE AND TIME FRAMES OF ALLOWANCE FOR MEDICATION TO BE GIVEN. PAIN MEDICATION BROUGHT TO PT IN WHICH PT THEN BECAME ANGRY AND REFUSED MEDICATION. PT ANGRILY STATING "THIS IS A JOKE. I WANT TO GO HOME, THEN I CAN ACTUALLY HAVE SOME PAIN MEDICINE." PT REFUSED PAIN MEDICATION PROVIDED DESPITE NURSE ATTEMPTS TO OFFER AVAILABLE PAIN MEDICINE PER EMAR. PT ALSO REFUSING TO DISCUSS OTHER TREATMENT OPTIONS TO POTENTIALLY HELP W/ PT'S PAIN. PT UPSET AND IN PAIN. HR CONTINUES TO BE 140-150, AFIB, DESPITE TX PER EMAR. WILL CONTINUE TO MONITOR AND PROVIDE CARE ABLE.
[2018-10-02 22:17] LABS: Hematocrit 27.5 % (37.0-53.0); Hemoglobin 8.3 g/dL (13.5-17.5)
[2018-10-03 04:19] LABS: Hematocrit 27.7 % (37.0-53.0); Hemoglobin 8.4 g/dL (13.5-17.5)
[2018-10-03 04:32] LABS: Albumin, Blood 2.2 g/dL (3.4-5.0); Anion Gap 7 mmol/L (6-16); Blood Urea Nitrogen 40 mg/dL (8-24); Bun/Creatinine Ratio 10.8 (12.0-20.0); CO2, Blood 31 mmol/L (21-32); Calcium, Blood 8.1 mg/dL (8.5-10.1); Chloride, Blood 104 mmol/L (98-108); Creatinine, Blood 3.71 mg/dL (0.60-1.20); Glomerular Filtration Rate 17 (60-); Glucose, Blood 81 mg/dL (70-99); Magnesium, Blood 2.2 mg/dL (1.6-2.4); Phosphorus, Blood 4.4 mg/dL (2.5-4.9); Potassium, Blood 3.5 mmol/L (3.5-5.5); Sodium, Blood 142 mmol/L (136-145)
--- NOTE | 2018-10-03 06:21 | NUR ---
SHIFT SUMMARY PT A&O X4, CALM AND COOPERATIVE W/ EPISODES OF IRRITABILITY AND VERBAL AGGRESSION RELATED TO PT'S PAIN. PT C/O PAIN IN R LEG BUT REFUSING OFFERED PAIN MEDICATION PER EMAR THIS SHIFT. PT REFUSES TO DISCUSS OTHER TX OPTIONS, SAYING "I NEED TO GO HOME AND TAKE PAIN MEDICINE." PT WANTING TO LEAVE AMA, STATING "I MIGHT HAVE SOMEONE COME GET ME" BUT MADE NO CALL FOR ANYONE AND ASKED TO BE LEFT ALONE. ORTHO CONSULT CALLED PER ORDERS, PT AWAITING CONSULT FOR R LEG LACERATION. PT TO HAVE DIALYSIS TODAY AND RECEIVE 1 UNIT PRBC'S DURING DIALYSIS PER ORDERS FROM MD FERNÁNDEZ. MONITOR SHOWS AFIB, HR 120-160. CARDIZEM GTT INFUSING @ 15 MG/HR. PRN METOPROLOL PUSH ADMINISTERED PER ORDERS X3 THIS SHIFT. HR CONTINUES TO BE ELEVATED. WILL CONTINUE TO MONITOR AND PROVIDE CARE UNTIL REPORT OFF TO DAY SHIFT RN.
--- NOTE | 2018-10-03 07:34 | NUR ---
AM NOTE. ASSUMED CARE OF PT APROX 0700, PT IS A&Ox4, PT WAS ADMITTED FOR RECTAL BLEEDING AND IS SCHEUDLED FOR A NM RBC TAG STUDY THIS AM. PT IS ALSO IN AFIB RVR WITH RATES IN THE 130'S-150'S PER DEMAND GENERATOR MANAGER. PT IS ON A CARDIZEM GTT AT 15MG/HR. PT'S BP 118/74. NO EDEMA NOTED ON ASSESSMENT. PT DENEIS RECENT RECTAL BLEEDING AT THIS TIME. CALL LIGHT IN REACH, BED LOCKED AND LOW WILL CONTINUE TO MONITOR.
--- NOTE | 2018-10-03 08:28 | NUR ---
PT UPDATE... PT SCHEDULED FOR DIALYSIS THIS AM AFTER THE NM RBC TAG TEST. CARDIOLOGY PROVIDER CALLED AND UPDATED ON PT'S CURRENT HEART RATE IN THE 140'S-150'S ON THE CARDIZEM GTT. PROVIDER ORDERED AMNIO GTT. ORDERS PLACED AND NEW MEDICATION STARTED. CARDIZEM GTT D/C'D.
--- NOTE | 2018-10-03 18:21 | NUR ---
SHIFT SUMMARY. NO ACUTE CHANGES NOTED THIS SHIFT. PT'S BLOOD SUGARS HAVE BEEN >80 AND HE WAS SWITCHED FROM Q2 CBGS TO ACHS. PT WAS IN DIALYSIS TODAY FOR APROX 2.45 HOURS WHERE HE ALSO GOT 1 UNIT PRBCS. PT'S VS HAVE BEEN STABLE T/O SHIFT. PT HAS NO C/O PAIN SINCE THIS AM WHEN HE WAS MEDICATED WITH HIS HOME DOSE OF OXYCODONE. PT WAS STARTED ON AMNIODERONE GTT, HIS HEART RATE IS CURRENTLY IN THE 130'S-140'S PER TRAINING PROJECT MANAGER. PT DENIES ANY CHEST PAIN/PRESSURE OR SOB. PT DID HAVE 1 EPISODE OF N/V, HE WAS MEDICATED PER EMAR. PT STATES THIS OFTEN HAPPENS AFTER DIALYSIS. PT'S NM SCAN CAME BACK NEGATIVE PER DRAFT REPORT. PT HAS NOT HAD A BM THIS SHIFT. PT HAS USED THE URINAL INDEPENDENTLY ONCE THIS SHIFT. PT HAS BEEN REFUSING THE SCD'S FOR DVT PREVENTION. DRESSING WAS CHANGED ON THE PT'S RIGHT LEG WOUND. ORTH CONSULT WAS PLACED, ORTHO PROVIDER CAME AND TOLD THIS RN THAT UNLESS THE WOUND BECAME INFECTED THEY WOULD SIGN OFF FOR NOW. CALL LIGHT IN REACH, BED IS LOCKED AND LOW WITH BED ALARM ON, WILL CONTINUE TO MONITOR UNTIL REPORT IS GIVEN TO ONCOMING RN.
[2018-10-04 03:51] LABS: BASOPHILS ABSOLUTE AUTO 0.04 K/mm3 (0.00-0.23); BASOPHILS PERCENT AUTO 1 % (0-2); EOSINOPHILS PERCENT AUTO 5 % (0-6); Hematocrit 29.6 % (37.0-53.0); Hemoglobin 8.8 g/dL (13.5-17.5); IMMATURE GRAN ABSOLUTE AUTO 0.03 K/mm3 (0.00-0.10); IMMATURE GRAN PERCENT AUTO 1 % (0-1); LYMPHOCYTES ABSOLUTE AUTO 0.85 K/mm3 (0.84-5.20); LYMPHOCYTES PERCENT AUTO 14 % (21-46); MONOCYTES ABSOLUTE AUTO 0.46 K/mm3 (0.16-1.47); MONOCYTES PERCENT AUTO 7 % (4-13); Mean Corpuscular HGB Conc 29.7 g/dL (31.5-36.5); Mean Platelet Volume 12.2 fL (9.1-12.4); NEUTROPHILS ABSOLUTE AUTO 4.59 K/mm3 (1.96-9.15); NEUTROPHILS PERCENT AUTO 73 % (41-73); Platelet Count 181 K/mm3 (150-400); RDW Coefficient Variation 17.1 % (11.7-14.2); RDW Standard Deviation 59.9 fL (35.1-46.3); Red Blood Cell Count 3.03 M/mm3 (4.30-5.90); White Blood Cell Count 6.27 K/mm3 (4.00-11.30)
[2018-10-04 03:55] LABS: Mean Corpuscular Volume 98 fL (80-100)
[2018-10-04 04:08] LABS: Albumin, Blood 2.2 g/dL (3.4-5.0); Anion Gap 6 mmol/L (6-16); Blood Urea Nitrogen 33 mg/dL (8-24); CO2, Blood 33 mmol/L (21-32); Calcium, Blood 8.6 mg/dL (8.5-10.1); Chloride, Blood 104 mmol/L (98-108); Creatinine, Blood 3.65 mg/dL (0.60-1.20); Glomerular Filtration Rate 18 (60-); Glucose, Blood 89 mg/dL (70-99); Magnesium, Blood 2.2 mg/dL (1.6-2.4); Phosphorus, Blood 5.3 mg/dL (2.5-4.9); Potassium, Blood 3.9 mmol/L (3.5-5.5); Sodium, Blood 143 mmol/L (136-145)
--- NOTE | 2018-10-04 05:26 | NUR ---
SHIFT SUMMARY PT HAS REMAINED AOX4 THROUGHOUT SHIFT. PLEASANT AND COOPERATIVE WITH CARE. CARDIAC RHYTHM REMAINS IN ATRIAL FIBRILLATION WITH A RATE IN THE 130-140'S. AMIODARONE DRIP CONTINUES TO INFUSE PER ORDERS. ALL OTHER VSS. PT MEDICATED MULTIPLE TIMES FOR PAIN IN R DELONG THROUGHOUT THE NIGHT, PAIN DECREASES WITH ORDERED MEDICATIONS. WOUND TO R DELONG IS LACERATION WITH 11 VISIBLE STITCHES AND VERY SMALL AMOUNT OF DRY, RED DRAINAGE FROM PREVIOUS LEAKING. SMALL BRUISE NOTED TO L OF LACERATION SITE WITH NOTABLE SWELLING ON PALPATION. PT REPORTS MINIMAL CHANGE IN DISCOMFORT FROM REST TO PALPATION OF SITE. CONTINUES TO USE URINAL AT BEDSIDE INDEPENDENTLY. NO OTHER CHANGES NOTED FROM INITIAL ASSESSMENT. WILL CONTINUE TO MONITOR AND REPORT TO ONCOMING SHIFT RN. BED IN LOW POSITION, CALL LIGHT IN REACH.
--- NOTE | 2018-10-04 08:51 | NUR ---
AM NOTE. ASSUMED CARE OF PT APROX 0700, PT IS A&Ox4 AND 2P ASSIST OUT OF BED AND USES W/C FOR MOBILITY OUT OF BED. PT WAS ADMITTED FOR RECTAL BLEED AND AFIB RVR, NO SIGN OF RECTAL BLEEDING IS NOTED, PT HAS NOT HAD BM SINCE ADMIT. PT'S IS CURRENTLY IN AFIB IN THE 140'S PER DOOR TO DOOR SALESMAN, AMIO GTT FINISHED AT 0830. PT'S RIGHT LEG HAS LACERATION WITH STICHES, HIS LEG IS ELEVATED ON PILLOWS, SMALL AREA OF SWELLING IS NOTED BUT IS IMPROVED FROM YESTERDAY. PT IS NOT TO HAVE DIALYSIS TODAY. PT'S VS STABLE AT THIS TIME. PT WAS MEDICATED FOR PAIN PER EMAR. CALL LIGHT IN REACH, BED LOCKED AND LOW WILL CONTINUE TO MONITOR.
--- NOTE | 2018-10-04 19:00 | NUR ---
SHIFT SUMMARY. PT'S VS HAVE BEEN STABLE T/O SHIFT. APROX 1700 PT STARTED TO C/O OF SOB AND FELT LIKE HE WAS WHEEZING, UPON ASSESSMENT IT WAS NOTED THAT PT'S L/S HAD INCREASED COARSE/CRACKLES AND EXP WHEEZES. PT'S O2 WAS >90% ON RA. PT'S HR HAS BEEN IN THE 140'S-150'S T/O SHIFT. PROVIDER WAS CALLED AND ORDERS OBTAINED FOR LOPRESSOR PUSH 5MG IV NOW AND ALBUTEROL NEBULILZER. THESE WERE DONE, PT STATED THAT HE FELT IT WAS A LITTLE EASIER TO BREATH BUT HIS HEART RATE WAS STILL IN THE 130'S-140'S. PT DENIES CHEST PAIN/PRESSURE AT THIS TIME. CALL LIGHT IN REACH, BED IS LOCKED AND LOW WILL CONTINUE TO MONITOR UNTIL REPORT IS GIVEN TO ONCOMING RN.
--- NOTE | 2018-10-04 20:36 | NUR ---
PROVIDER CONTACTED PT REPORTING SOME CONTINUED DYSPNEA PRODUCTIVE COUGH. PT STATES THAT HE UTILIZES ALBUTEROL NEBULIZERS AT HOME THREE TIMES WEEKLY, BUT PRIOR TO HOSPITALIZATION WAS USING THEM DAILY. PT RECEIVED ALBUTEROL NEBULIZER THIS AFTERNOON FOR SHORTNESS OF BREATH WITH REPORTED IMPROVEMENT. NO NOTED CHANGE IN CARDIAC RATE WITH USE OF ALBUTEROL. NADIRA GONG CONTACTED AND ORDERS RECEIVED FOR ALBUTEROL NEBULIZER TREATMENTS Q2 PRN FOR SHORTNESS OF BREATH.
[2018-10-05 03:32] LABS: Hematocrit 32.5 % (37.0-53.0); Hemoglobin 9.4 g/dL (13.5-17.5)
[2018-10-05 03:52] LABS: Albumin, Blood 2.2 g/dL (3.4-5.0); Anion Gap 6 mmol/L (6-16); Blood Urea Nitrogen 38 mg/dL (8-24); Bun/Creatinine Ratio 8.1 (12.0-20.0); CO2, Blood 32 mmol/L (21-32); Calcium, Blood 8.7 mg/dL (8.5-10.1); Chloride, Blood 105 mmol/L (98-108); Glomerular Filtration Rate 13 (60-); Glucose, Blood 85 mg/dL (70-99); Magnesium, Blood 2.3 mg/dL (1.6-2.4); Phosphorus, Blood 6.5 mg/dL (2.5-4.9); Potassium, Blood 4.7 mmol/L (3.5-5.5); Sodium, Blood 143 mmol/L (136-145)
--- NOTE | 2018-10-05 05:45 | NUR ---
SHIFT SUMMARY PT HAS REMAINED AOX4 THROUGHOUT SHIFT. PLEASANT AND COOPERATIVE WITH CARE. CARDIAC RHYTHM REMAINS IN ATRIAL FIBRILLATION WITH A RATE REMAINING IN THE 130-140'S, CONTINUES TO DENY CHEST PAIN. PT DENYING EPISODES OF DYSPNEA THROUGHOUT SHIFT, BUT IS HAVING MOIST COUGH THAT IS PRODUCTIVE OF SOME SPUTUM PER PATIENT REPORT, STATES THAT HE SWALLOWED IT OPPOSED TO SPITTING IT OUT. O2 SATS HAVE REMAINED >90% ON RA. PT MEDICATED MULTIPLE TIMES FOR GENERALIZED PAIN WELL PAIN TO LACERATION SITE ON R LEG. LACERATION CLEANED WITH WOUND EHS ENGINEER AND WRAPPED WITH NON-ADHERENT DRESSING AND KERLEX. PT PROVIDED WITH ICE PACK FOR R LEG PAIN THAT HE REPORTS HELPED DECREASE DISCOMFORT SOME. NO OTHER CHANGES NOTED FROM INITIAL ASSESSMENT. WILL CONTINUE TO MONITOR AND REPORT TO ONCOMING SHIFT RN. BED IN LOW POSITION, CALL LIGHT IN REACH.
--- NOTE | 2018-10-05 08:51 | NUR ---
AM NOTE. ASSUMED CARE OF PT APROX 0700, PT IS A&Ox4 AND BEING TREATED FOR AFIB RVR. PT HAS NOT RESPONDED TO CARDIZEM, LOPRESSOR, OR AMIO AT THIS TIME. PT'S HR CONTINUES TO BE IN THE 140'S-150'S. PT DENIES ANY CHEST PAIN OR SOB AT THIS TIME. L/S COARSE T/O WITH OCC MOIST, CONGESTED COUGH, NO SPUTUM VISULIZED AT THIS TIME. PT'S VS HAVE BEEN STABLE. PT'S RIGHT LEG WOUND DRESSING IS C/D/I AT THIS TIME. PALLIATIVE CARE CONSULT WAS PLACED DUE TO PT'S CONDITION AND RECENT COMMENTS STATING "I AM DEPRESSED, I JUST WANT TO GO HOME ON HOSPICE AND WAIT TO OF A STROKE." PT IS DA CONCERNED ABOUT MISSING A SCHEDULED SURGERY TO REMOVE HIS THYROID D/T MALIGNANT TUMOR. CALL LIGHT IN REACH, BED IS LOCKED AND LOW WILL CONTINUE TO MONITOR.
--- NOTE | 2018-10-05 09:35 | NUR ---
DIALYSIS- DR FERNÁNDEZ ASKED US TO RUN PT ON DIALYSIS TODAY. PT REFUSED TREATMENT.
--- NOTE | 2018-10-05 18:30 | NUR ---
SHIFT SUMMARY. PT HAS C/O OF "JUST NOT FEELING WELL" THIS SHIFT. PT STATES HE FEELS "WORSE THAN YESTERDAY." PT'S VS HAVE BEEN STABLE. DRESSING ON THE PT'S RIGHT LEG WOUND WAS REMOVED AND AREA WAS CLEANED AND LEFT OPENT TO AIR. PT REFUSED DIALYSIS TODAY STATING "DR. FERNÁNDEZ SAID I DIDN'T HAVE TO." HOWVER THERE WAS AN ORDER FOR DIALYSIS TODAY. PT HAS SLEPT MOST OF THIS SHIFT AND HAD A VISITOR FOR APROX 2 HOURS TODAY. PT C/O OF "NOT BEING ABLE TO BREATH" AND BEING SOB, PT'S L/S DIM AND SLIGHTLY COARSE T/O W/SOME WHEEZES IN THE UPPER LOBES, HOWVER THIS HAS IMPROVED FROM YESTERDAY, PT IS STILL ON RA WITH O2 >90%. PT HAS BEEN MEDICATED FOR PAIN PER EMAR. PT HAS NOT EATEN AT ALL TODAY STATING HE WAS NOT HUNGERY. IT IS NOTED THAT THE PT'S RIGHT ARM HAS DEPENDENT EDEMA THAT WAS NOT NOTED THIS AM. CALL LIGHT IN REACH, BED IS LOCKED AND LOW WILL CONTINUE TO MONITOR UNTIL REPORT IS GIVEN TO ONCOMING RN.
--- NOTE | 2018-10-05 20:00 | NUR ---
ASSUMED CARE PT CARE ASSUMED AT APPROXIMATELY 1930. PT IS AOX4 AT THIS TIME, BUT IS MORE DROWSY THAN PREVIOUS NIGHTS. THROUGHOUT ASSESSMENT, PT IS IRRITABLE, BUT COOPERATIVE WITH CARE PROVIDED AT THIS TIME. O2 SATS >90% ON RA AND PT DENIES DYSPNEA. R LEG WOUND APPEARS TO BE IMPROVING. PT STATES THAT WOUND IS STILL PAINFUL, BUT HAS IMPROVED SLIGHTLY. LUNG SOUNDS ARE COARSE IN THE UPPER LOBES AND DIMINISHED IN THE BASES WITH NOTED MOIST, NONPRODUCTIVE COUGH. PT UPDATED ON CURRENT STATUS AND ADVISED TO FOLLOW PHYSICIAN RECOMMENDATIONS FOR CARE. PT GROWING INCREASINGLY IRRITABLE THROUGHOUT ASSESSMENT AND ASKING TO BE LEFT ALONE TOWARDS END OF INTERACTION. PT MEDIATED WITH PM MEDS AND INFORMED THAT STAFF WILL CONTINUE TO ROUND AND PROVIDE CARE ON HIM. PT ADJUSTED FOR COMFORT AND CALL LIGHT LEFT IN REACH.
--- NOTE | 2018-10-05 23:29 | NUR ---
PATIENT UPDATE PT GROWING INCREASINGLY IRRITABLE WHEN IN PROVIDING CARE AND REASSESSING VITAL SIGNS. PT STATES THAT THE "BLOOD PRESSURE CUFF ALWAYS FILLS UP MULTIPLE TIMES WHENEVER WE COME TO TAKE HIS BLOOD PRESSURE". ATTEMPTED TO EDUCATE PT ON DIFFERENT FACTORS THAT MAY EFFECT THAT, SUCH HEART RATE/RHYTHM, LOW BLOOD PRESSURE AND EDEMA IN EXTREMITIES. PT CONTINUES TO ESCALATE AND STATE "STOP TALKING TO ME LIKE A CHILD AND YELLING AT ME". WHEN ASKED WHY PATIENT IS GROWING MORE AGITATED, PT STATES THAT "HE DOESN'T FEEL GOOD AND JUST WANTS TO BE LEFT ALONE". EXPLAINED TO PATIENT THAT STAFF IS UNABLE TO LEAVE HIM ALONE ENTIRELY BECAUSE PART OF PROVIDING CARE IS CONTINUOUS ASSESSMENT AND PROVIDING PATIENT EDUCATION. CONTINUES TO TALK OVER THIS RN AND EXPRESS HIS WANT FOR STAFF TO "LEAVE HIM ALONE". EXPRESSED THAT STAFF CAN GIVE HIM SOME TIME, BUT THAT STAFF WILL BE BACK LATER TO PROVIDE CARE. CALL LIGHT IN REACH. THAT
--- NOTE | 2018-10-06 06:36 | NUR ---
SHIFT SUMMARY PT HAS REMAINE AOX4 THROUHGOUT SHIFT. PT HAS BECOME LESS AGITATED FROM PREVIOUS INTERACTION AND IS MORE COOPERATIVE WITH CARE. HEART RATE IS BEGINNING TO TREND DOWN SLIGHTLY AND IS AVERAGING IN THE 120-130'S AT THIS TIME. PT DENIES CHEST PAIN OR DYSPNEA CURRENTLY. O2 SATS HAVE REMAINED >90% ON RA.PT MEDICATED MULTIPLE TIMES FOR BODYWIDE PAIN THAT IS CHRONIC AND ACUTE PAIN TO DELONG WITH WOUND. PT REPORTS SOME DECREASE IN PAIN WITH ORDERED MEDICATIONS. WOUND CLEANED AND BACITRACIN APPLIED, LEFT OPEN TO AIR PER PATIENT REQUEST. NO OTHER CHANGES NOTED FROM INITIAL ASSESSMENT. WILL CONTINUE TO MONITOR AND REPORT TO ONCOMING SHIFT RN. BED IN LOW POSITION, CALL LIGHT IN REACH.
[2018-10-06 06:55] LABS: Hematocrit 33.7 % (37.0-53.0); Hemoglobin 9.6 g/dL (13.5-17.5)
[2018-10-06 07:19] LABS: Albumin, Blood 2.2 g/dL (3.4-5.0); Anion Gap 10 mmol/L (6-16); Blood Urea Nitrogen 51 mg/dL (8-24); Bun/Creatinine Ratio 8.8 (12.0-20.0); CO2, Blood 26 mmol/L (21-32); Calcium, Blood 8.4 mg/dL (8.5-10.1); Chloride, Blood 105 mmol/L (98-108); Creatinine, Blood 5.82 mg/dL (0.60-1.20); Glomerular Filtration Rate 10 (60-); Glucose, Blood 86 mg/dL (70-99); Magnesium, Blood 2.6 mg/dL (1.6-2.4); Potassium, Blood 5.7 mmol/L (3.5-5.5); Sodium, Blood 141 mmol/L (136-145)
[2018-10-06 07:43] LABS: Phosphorus, Blood 8.6 mg/dL (2.5-4.9)
--- NOTE | 2018-10-06 08:00 | NUR ---
BLOOD SUGAR OF 45. PT GIVEN JUICE AND A SNACK. WILL RECHECK.
--- NOTE | 2018-10-06 08:30 | NUR ---
PT STATES HE IS NAUSEOUS. CBG RECHECKED AND IS 26. DR. MANTILLA CALLED AND HALF AN AMP OF D50 IS GIVEN. PT ALERT AND ORIENTED. VS STABLE. 02 SATS REMAIN ABOVE 90% ON RA. PT COMPLAINS OF PAIN IN HIS RIGHT LOWER LEG. WILL MEDICATE NEEDED PER EMAR. WILL CONTINUE TO MONITOR CLOSELY.
--- NOTE | 2018-10-06 09:00 | NUR ---
PT TAKEN TO DIALYSIS. WILL AWAIT RETURN.
--- NOTE | 2018-10-06 11:30 | NUR ---
PT RETURNED FROM DIALYSIS. VS STABLE. WILL CONTINUE TO MONITOR.
--- NOTE | 2018-10-06 12:15 | NUR ---
BLOOD SUGAR OF 36. PT GIVEN JUICE. DR. MANTILLA NOTIFIED AND NEW ORDERS FOR D50. D50 GIVEN. WILL RECHECK BLOOD SUGAR.
--- NOTE | 2018-10-06 16:40 | NUR ---
BLOOD SUGAR OF 64. DR. MANTILLA NOTIFIED. NEW ORDERS FOR AM LABS. PT GIVEN JUICE AND SNACK. WILL RECHECK.
--- NOTE | 2018-10-06 17:50 | NUR ---
Initial Visit: Palliative Care Consult for End Stage, Renal, Pyschiatric, Goals of Care. Pt is A&Ox4. Listened as Pt expresses concerns. Pt reports concerns of current place of residence. He reports frustrations regarding his quality of life there. He states that he wishes he lived in [place]. Pt reports living at [facility] in [place] and requires assistance with bathing, dressing, transfers and is chair bound. Pt has a power chair that he uses to get outside. He reports his facility does shopping trips on the days of his dialysis and is frustrated with their scheduled. Pt reports concerns of being in the hospital and was diagnosed with thyroid cancer and won't be able to see the ENT in [place] for a few months. He states ENT does not have any sooner appointments. Engaged in discussion regarding remarks he made of wanting to . Pt reports saying those remarks out of frustration. Listened as he states willingness to continue with life and is not ready for end of life care. Discussed end of life care such as hospice as an option that is available for him at any time he chooses. Pt reports his primary goals are to have surgery for his thyroid cancer and to relocate to a facility in [place]. He reports speaking with his case workeer and a list of facilities have been mailed to him. Pt reports no concerns at this time. Palliative Care will remain available.
--- NOTE | 2018-10-06 17:55 | NUR ---
SHIFT SUMMARY PT ALERT AND ORIENTED. HR HAS BEEN 120-130'S AFIB. BP STABLE. O2 SATS REMAIN ABOVE 90% ON RA. PT COMPLAINS OF PAIN IN HIS RIGHT LEG AND MEDICATED PER EMAR. REPEAT BLOOD SUGAR IS 109. PT EATING DINNER AT THIS TIME. WILL CONTINUE TO MONITOR AND REPORT TO ONCOMING RN. CALL LIGHT IN REACH.
--- NOTE | 2018-10-06 20:00 | NUR ---
CARE ASSUMPTION PT A&O X4, PLEASANT, CALM AND COOPERATIVE. PT VSS. LUNG SOUNDS COARSE, SPO2 > 92% ON RA. MONITOR SHOWS AFIB, HR 120-140. PT C/O "STINGING" SENSATION TO R LOWER LEG LACERATION. BLE ELEVATED W/ PILLOWS. WILL CONTINUE TO MONITOR AND PROVIDE CARE.
--- NOTE | 2018-10-06 21:27 | NUR ---
CBG 55, PT ASYMPTOMATIC, TX'D W/ GLASS OF ORANGE JUICE AND 2 COOKIES. CBG RECHECK AN HOUR LATER W/ RESULT OF 118. APPLES AND PEANUT BUTTER AT PT BEDSIDE. WILL CONTINUE TO MONITOR AND PROVIDE CARE.
--- NOTE | 2018-10-07 00:17 | NUR ---
CBG 45, PT ASYMPTOMATIC, SITTING UP EATING DESSERT "MAGIC CUP". CALL TO MD HOGAN W/ ORDERS FOR D10 IV BE GIVEN, SEE EMAR, AND ORDERS TO CHECK CBG'S Q1H UNTIL STABLE FOR 3 HRS AND THEN Q2H. WILL CONTINUE TO MONITOR AND PROVIDE CARE.
[2018-10-07 03:47] LABS: Hematocrit 32.1 % (37.0-53.0); Hemoglobin 9.2 g/dL (13.5-17.5)
[2018-10-07 04:02] LABS: Albumin, Blood 2.1 g/dL (3.4-5.0); Anion Gap 8 mmol/L (6-16); Blood Urea Nitrogen 41 mg/dL (8-24); CO2, Blood 31 mmol/L (21-32); Calcium, Blood 8.3 mg/dL (8.5-10.1); Chloride, Blood 102 mmol/L (98-108); Creatinine, Blood 5.15 mg/dL (0.60-1.20); Glomerular Filtration Rate 12 (60-); Glucose, Blood 73 mg/dL (70-99); Magnesium, Blood 2.4 mg/dL (1.6-2.4); Phosphorus, Blood 7.5 mg/dL (2.5-4.9); Sodium, Blood 141 mmol/L (136-145)
--- NOTE | 2018-10-07 06:26 | NUR ---
SHIFT SUMMARY PT A&O X4. VSS. D10 IV GTT INFUSING PER ORDERS. CONTINUING TO CHECK CBG'S Q1H PER CBG MONITORING ORDER. PT C/O R LEG PAIN, MEDICATING PER EMAR. R LEG ELEVATED T/O SHIFT. R LOWER LEG LACERATION OPEN TO AIR. PT STATES R LEG TO BE MORE SWOLLEN. NEW WOUND PHOTO TAKEN AND PLACED IN CHART. WILL CONTINUE TO MONITOR AND PROVIDE CARE UNTIL REPORT OFF TO DAY SHIFT RN.
--- NOTE | 2018-10-07 09:16 | NUR ---
PT TAKEN TO DIALYSIS. WILL AWAIT RETURN.
--- NOTE | 2018-10-07 09:18 | NUR ---
UNABLE TO DO HEMODIALYSIS TODAY DUE TO CLOTTED LFA GRAFT. CONSULT FOR THROMBECTOMY WITH DR CARLENE LANDERS.
--- NOTE | 2018-10-07 09:45 | NUR ---
PT RETURNED FROM DIALYSIS. PT UNABLE TO RECEIVE DIALYSIS DUE TO FISTULA CLOTTING. DR. CONCEPCION CONSULTED. BLOOD SUGAR STABLE AT THIS TIME.
--- NOTE | 2018-10-07 17:38 | NUR ---
SHIFT SUMMARY PT ALERT AND ORIENTED. HR HAS BEEN AFIB IN THE 100-120'S. O2 SATS REMAIN IN THE 90'S ON RA. BP HAS BEEN LOW, BUT PT ASYMPTOMATIC. PER DR. DR. CONCEPCION IN THIS AFTERNOON WITH PLANS TO TAKE PT TO HYDRAULIC BULL RIVETER OPERATOR IN THE AM. PT TO BE NPO AT MIDNIGHT. POWER GLIDE PLACED THIS EVENING WITH D10 INFUSING PER ORDERS. BLOOD SUGARS HAVE BEEN STABLE. WILL CONTINUE TO MONITOR AND REPORT TO ONCOMING RN. CALL LIGHT IN REACH.
--- NOTE | 2018-10-07 20:46 | NUR ---
CARE ASSUMPTION PT A&O X4. PT C/O "9" OUT OF 10 "STINGING & BURNING" PAIN IN R LOWER LEG. R LEG ELEVATED IN BED W/ PILLOWS. SEE WOUND PHOTOS IN CHART. BP 82/57, MAP 65, METOPROLOL BEING HELD AT THIS TIME PER CLINICAL JUDGEMENT. CBG STABLE AT THIS TIME. D10 GTT INFUSING PER ORDERS. WILL CONTINUE TO MONITOR AND PROVIDE CARE.
--- NOTE | 2018-10-08 03:10 | NUR ---
POWERGLIDE INFILTRATION. IV D10 ON STANDBY UNTIL NEW IV ACCESS.
[2018-10-08 04:59] LABS: Hematocrit 32.1 % (37.0-53.0); Hemoglobin 9.4 g/dL (13.5-17.5)
--- NOTE | 2018-10-08 05:00 | NUR ---
MULTIPLE PAUSES CALL TO MD HOGAN @ APPROX 0500 TO REPORT DECREASE IN HR & 9 PAUSES THIS AM EACH < 4.0 SECONDS DURATION THIS AM. PT ORIGINALLY AFIB, HR 100-130 W/ DECREASE TO AFIB, HR 40-80'S. PT ASYMPTOMATIC. BP'S HAVE BEEN RUNNING LOW AND PM METOPROLOL WAS HELD PER CLINICAL JUDGEMENT THIS SHIFT. ORDERS FROM MD HOGAN TO CONTINUE TO HOLD BETA BLOCKERS FOR NOW. WILL CONTINUE TO MONITOR AND PROVIDE CARE.
[2018-10-08 05:24] LABS: Magnesium, Blood 2.6 mg/dL (1.6-2.4)
[2018-10-08 05:27] LABS: Albumin, Blood 2.2 g/dL (3.4-5.0); Anion Gap 9 mmol/L (6-16); Blood Urea Nitrogen 54 mg/dL (8-24); Bun/Creatinine Ratio 9.2 (12.0-20.0); CO2, Blood 27 mmol/L (21-32); Calcium, Blood 8.3 mg/dL (8.5-10.1); Chloride, Blood 99 mmol/L (98-108); Creatinine, Blood 5.89 mg/dL (0.60-1.20); Glomerular Filtration Rate 10 (60-); Glucose, Blood 99 mg/dL (70-99); Phosphorus, Blood 7.9 mg/dL (2.5-4.9); Potassium, Blood 5.7 mmol/L (3.5-5.5); Sodium, Blood 135 mmol/L (136-145)
--- NOTE | 2018-10-08 07:42 | NUR ---
SHIFT SUMMARY PT A&0 X4, CALM AND COOPERATIVE. PT DIFFICULT TO WAKE UP, BUT IS ALERT ONCE WOKEN. BP'S CONTINUE TO BE LOW, OTHERWISE VSS. POWERGLIDE INFILTRATION THIS SHIFT W/ NEW PIV PLACED AND IV D10 RESUMED PER ORDERS. CBG'S STABLE THIS SHIFT, CHECKING Q2H PER ORDERS. MONITOR SHOWS AFIB, HR 100-130 W/ DECREASE IN HR TO AFIB 40-70 THIS AM W/ MULTIPLE PAUSES < 4.0 SECONDS EACH (SEE PREVIOUS NOTE). ORDERS FROM MD HOGAN TO HOLD BETA BLOCKERS FOR NOW. PT NPO W/ ANTICIPATION OF REVASCULARIZATION OF FISTULA TODAY W/ PLAN FOR DIALYSIS AFTER. REPORT GIVEN TO DAY SHIFT RN.
--- NOTE | 2018-10-08 11:43 | NUR ---
Call to the control room to update them on pt's condition: vital signs, IV access established, and latest potassium level.
--- NOTE | 2018-10-08 11:49 | NUR ---
LATE ENTRY [address] MANTILLA TO CLARIFY NURSE NOTIFY, NEW ORDERS FOR HOUR LONG ALBUTERAL TREATMENT ENTERED. RT NOTIFIED AND TO ROOM 0926- THIS RN TO ROOM WITH CALCIUM GLUCANATE TO REDUCE POTASSIUM, LOST IV ACCESS, NOT ADMINISTERED. PT RESPONDS TO VERBAL STIMULI AND RETURNS TO SLEEP QUICKLY. PT ASSIST WITH REPOSITIONING. PT DENIES PAIN. LS COARSE T/O, >92% ON 2L O2 VIA NC. PT NPO FOR AUTOMATIC CLIPPER AND STRIPPER PROCEDURE. BP 83/58. OTHER VSS. WILL CONTINUE TO MONITOR. 927- LAST PAUSE CARDIAC PAUSE PER TELEMETRY. 1005- BP 92/60, SEVERAL ATTEMPTS AT IV. NOTIFIED DR MANTILLA, NEW ORDER TO HOLD CALCIUM GLUCANATE UNTIL ALBUTEROL COMPLETED, RECHECK POTASSIUM, IF <5.5 D/C CALCIUM GLUCANATE. 1045- RENAY RN, PLACE 20G IN R SHOULDER. 1135- RESTARTED D10 AND ANTIBIOTIC. ELEVATED HR, BP AT 99/54. POTASSIUM 5.3, HOLDING CALCIUM GLUCANATE PER ORDERS. 1145- NOTIFIED DR MANTILLA, NO NEW ORDERS. WILL CONTINUE TO MONITOR. CHEST XRAY COMPLETED.
--- NOTE | 2018-10-08 13:41 | NUR ---
PT ALERT WHEN THIS RN ENTERED ROOM. ASSIST PT WITH TAKE SHIRT AND SHORTS OFF TO PLACE GOWN. PT ANSWERING QUESTIONS. ASKS TO HAVE DESK DRAWN TO HIM. WILL CONTINUE TO MONITOR.
--- NOTE | 2018-10-08 14:14 | NUR ---
1400 PATIENT TAKEN TO FARMWORKER DAIRY
--- NOTE | 2018-10-08 15:53 | NUR ---
PT BACK FROM NOC TECHNICIAN, VS 122/76, HR 118, 96.3, RESP 14 91% ON 2L O2 VIA NC. LEFT FISTULA CATH SITE ARE COVERED WITH DRESSING, NO S/SX OF BLEEDING NOTED, NO HEMATOMA. NO THRILL PRESENT, BRUITE PRESENT ON AUSCULATATION. WILL CONTINUE TO MONITOR.
--- NOTE | 2018-10-08 16:52 | NUR ---
ON ASSESSMENT DURING VITALS NO BRUITE OR THRILL PRESENT, MIGUEL OPTOMETRIST AT BEDSIDE. NOTIFIED DR CONCEPCION, NEW ORDERS TO ACCESS GRAFT WITHOUT BRUITE AND THRILL AND DR TO COME ASSESS LATER. WILL CONTINUE TO MONITOR.
--- NOTE | 2018-10-08 17:39 | NUR ---
UNABLE TO DIALYZE PATIENT YESTERDAY DUE TO CLOTTED AV GRAFT. THROMBECTOMY PERFORMED TODAY BY DR CONCEPCION AND THIS NURSE CALLED BACK TO DELIVER HEMODIALYSIS TREATMENT. UPON ASESSING GRAFT NO BRUIT OR THRILL DETECTED. DR CONCEPCION NOTIFIED AND HE REQUESTED NEEDLE ACCESS ATTEMPT TO CONFIRM NO FLOW IN GRAFT. ACCESS WAS PREPPED AND ACCESSED WITH A 16 GA FISTULA NEEDLE AND NO FLASH WAS OBSERVED AND UPON ASPIRATION, DARK BLOOD RETURNED INDICATING NO FLOW IN GRAFT. DR FERNÁNDEZ WAS CONTACTED BY PHONE AND HE ORDERED A STAT K+ AND A CALL BACK WITH RESULTS. LAB WAS ORDERED AND RESULTS ARE PENDING AT THIS TIME.
--- NOTE | 2018-10-08 18:04 | NUR ---
SHIFT SUMAMRY THIS AM PATIENT RESPONDING TO VERBAL AND TACTILE STIMULI, AND WOULD FALL BACK ASLEEP QUICKLY; SINCE PROCEDURE PT HAVE BEEN A&Ox4. CALM AND COOPERTIVE WITH CARE. PT RESTING IN BED HELPS WITH REPOSITIONING. PT REPORTS PAIN IN RLE, MEDICATED x1 WITH OXYCODONE, PT STATES "IT JUST TAKES THE EDGE OFF". PT SOB WITH EXERTION, >90% ON 2L O2 VIA NC. PT DENIES NAUSEA, REMAINS NPO T/O SHIFT. RECEIVING D10, CBG 80-100'S. TELE SHOWING AFIB, HAD PAUSES LAST NIGHT AND THIS AM, LAST PAUSE NOTED AT 0928 PER HEAD OF INSIGHT. PROCEDURE IN COMB MACHINE OPERATOR THIS AFTERNOON, FISTULA BRUITE PRESENT WHEN PT GOT BACK TO ROOM AND BUT NOT PRESENT WHEN CREDIT COUNSELOR AT BEDSIDE. DR CONCEPCION AT BEDSIDE, PLAN FOR ANOTHER PROCEDURE THIS EVENING. POTASSIUM 5.7 TO 5.3 WITH ALBUTEROL TREATMENT THIS AM. BP HYPOTENSIVE THIS AM, TRENDING UP. HR ELEVATED THIS EVENING, DR MANTILLA NOTIFIED, NO NEW ORDERS. OTHER VSS. NO OTHER ACUTE CHAGNES NOTED DURING SHIFT. WILL CONTINUE TO MONITOR UNTIL REPORT GIVEN TO ONCOMING RN.
--- NOTE | 2018-10-08 18:45 | NUR ---
DR FERNÁNDEZ CONTACTED AND INFORMED OF 5.1 STAT K+ AT 1800. DR FERNÁNDEZ IS OK WITH PLANNING FOR HEMODIALYSIS IN AM 10/09 FOLLOWING INTERVENTIONS PERFORMED BY DR CONCEPCION.
--- NOTE | 2018-10-08 19:31 | NUR ---
DR CONCEPCION CALLED TO NOTIFY THIS RN THAT THEY WILL NOT BE ALBE TO GO BACK INTO [facility] TONIGHT; STAFFING NOT AVAILABLE AND DR CONCEPCION DOSE NOT WORK THE WEEKEND. STAFFING AND DR CONCEPCION WOULD NOT BE AVAILABLE FOR INTERVENTION UNTIL AFTER THE WEEKEND. DR. CONCEPCION RECOMMENDED NEED OF A GENERAL SURGEON IF ACCESS NEEDED THIS WEEKEND FOR DIALYSIS THIS WEEKEND. PASSED THIS INFORMATION OFF TO NENITA YEUNG TO NOTIFY DOCTORS.
--- NOTE | 2018-10-08 20:58 | NUR ---
UPDATE AT APPROX 0735 DR FERNÁNDEZ NOTIFIED THAT DR CONCEPCION WAS UNABLE TO PLACE PERMACATH TONIGHT AND THAT HE WOULD BE UNABLE TO THROUGHOUT THE WEEKEND WELL. DR FERNÁNDEZ ORDERED FOR DR MALDONADO TO CONSULT AND ASSESS THE PATIENT FOR A TEMPORARY CATHETER. DR MALDONADO IN ASSESSING PATIENT AT THIS TIME.
--- NOTE | 2018-10-08 21:13 | NUR ---
TEMPORARY PERMACATH PLALCEMENT DR MALDONADO AND GREEN MARKETING ANALYST TERESA IN ROOM PLACING A TEMPORARY PERMACATH AT THIS TIME.
--- NOTE | 2018-10-08 21:58 | NUR ---
PATIENT HAS HAS A NEW LEFT FEMORAL TEMPORARY CVC PLACED BY DR SONIYA BONILLA IN ANTICIPATION OF EARLY AM HEMODIALYSIS TOMORROW. THIS NURSE WAS REQUESTED TO RETURN TO PATIENTS ROOM TONIGHT AND PACK CVC WITH APPROPRIATE ANTICOAGULENT. CITRATE ORDERED FROM PHARMACY AND CVC PACKED, CAPPED AND SECURED PER POLICY. PATIENT AWAKE, ALERT, IN GOOD SPIRITS AND NO APPARENT DISTRESS.
[2018-10-09 04:39] LABS: BASOPHILS ABSOLUTE AUTO 0.04 K/mm3 (0.00-0.23); BASOPHILS PERCENT AUTO 1 % (0-2); EOSINOPHILS ABSOLUTE AUTO 0.29 K/mm3 (0.00-0.68); EOSINOPHILS PERCENT AUTO 4 % (0-6); Hematocrit 29.1 % (37.0-53.0); Hemoglobin 8.7 g/dL (13.5-17.5); IMMATURE GRAN ABSOLUTE AUTO 0.07 K/mm3 (0.00-0.10); IMMATURE GRAN PERCENT AUTO 1 % (0-1); LYMPHOCYTES ABSOLUTE AUTO 0.48 K/mm3 (0.84-5.20); LYMPHOCYTES PERCENT AUTO 7 % (21-46); MONOCYTES ABSOLUTE AUTO 0.43 K/mm3 (0.16-1.47); MONOCYTES PERCENT AUTO 6 % (4-13); Mean Corpuscular HGB 29.6 pg (26.0-34.0); Mean Corpuscular HGB Conc 29.9 g/dL (31.5-36.5); Mean Corpuscular Volume 99 fL (80-100); Mean Platelet Volume 13.3 fL (9.1-12.4); NEUTROPHILS ABSOLUTE AUTO 5.43 K/mm3 (1.96-9.15); NEUTROPHILS PERCENT AUTO 81 % (41-73); Platelet Count 134 K/mm3 (150-400); RDW Coefficient Variation 15.8 % (11.7-14.2); RDW Standard Deviation 56.2 fL (35.1-46.3); Red Blood Cell Count 2.94 M/mm3 (4.30-5.90); White Blood Cell Count 6.74 K/mm3 (4.00-11.30)
[2018-10-09 05:07] LABS: Alanine Aminotransfer (ALT/SGP 558 U/L (12-78); Albumin, Blood 2.1 g/dL (3.4-5.0); Albumin/Globulin Ratio 0.6 (0.8-1.8); Alk Phos 97 U/L (50-136); Anion Gap 11 mmol/L (6-16); Aspartate Aminotrans (AST/SGOT 249 U/L (12-37); Bilirubin, Total 0.3 mg/dL (0.1-1.0); Blood Urea Nitrogen 59 mg/dL (8-24); Bun/Creatinine Ratio 9.2 (12.0-20.0); CO2, Blood 26 mmol/L (21-32); Calcium, Blood 7.6 mg/dL (8.5-10.1); Chloride, Blood 95 mmol/L (98-108); Creatinine, Blood 6.44 mg/dL (0.60-1.20); Globulin, Blood 3.3 g/dL (2.2-4.0); Glomerular Filtration Rate 9 (60-); Glucose, Blood 80 mg/dL (70-99); Magnesium, Blood 2.3 mg/dL (1.6-2.4); Potassium, Blood 5.1 mmol/L (3.5-5.5); Sodium, Blood 132 mmol/L (136-145); Total Protein, Blood 5.4 g/dL (6.4-8.2)
[2018-10-09 05:32] LABS: Phosphorus, Blood 8.5 mg/dL (2.5-4.9)
--- NOTE | 2018-10-09 05:52 | NUR ---
UPDATE DR FERNÁNDEZ NOTIFIED OF CRTICAL PHOPHORUS OF 8.5. DR FERNÁNDEZ STATES DIALYSIS IS PLANNED FOR THE DAY WITH ONE UNIT OF PRBC'S TO BE GIVEN WITH DILAYSIS. FOREMAN/PILE DRIVING AND ERECTION MIGUEL NOTIFIED PER DR FERNÁNDEZ INSTRUCTION. MIGUEL AWARE OF PLAN OF DIALYSIS WITH ONE UNIT PRBC'S TODAY.
--- NOTE | 2018-10-09 06:23 | NUR ---
SHIFT SUMMARY PATIENT PLEASENT AND COOPERATIVE THROUGHOUT THE NIGHT. PATIENT APPEARED TO SLEEP WELL FOR MOST OF THE NIGHT. PATIENT CONTINUES TO HAVE D10 IV FLUIDS RUNNING PER ORDERS. PATIENT MEDICATED FOR PAIN PER EMAR. PATIENT REQUESTED A SOCIAL SERVICE CONSULT STATING HE FEELS LIKE HIS CURRENT LIVING ARRANGMENT AT THE [facility] WILL NO LONGER BE APPROPRIATE AND THAT HE MAY NEED MORE ASSISTNACE THAN WHAT THEY ARE ABLE TO PROVIDE FOR HIM THERE. PATIENT'S RIGHT LEG ELEVATED ON PILLOWS. TEMPORARY PERMACATH IN PLACE TO LEFT GROIN. ABX GIVEN PER ORDERS. VITAL SIGNS CHARTED. WILL CONTINUE TO MONITOR PATIENT AND REPORT TO ONCOMING RN.
[2018-10-09 09:37] LABS: Glucose, Blood 72 mg/dL (70-99)
[2018-10-09 13:32] LABS: Vancomycin, Random 6.6 ug/mL
--- NOTE | 2018-10-09 13:53 | NUR ---
DIALYSIS TOOK MACHINE INTO PCU1. STARTED TO SEUP THE MACHINE. PT WAS IN A RECLINER AND DECIDED TO STAY IN IT FOR THE TX. GOT THE MACHINE READY AND WAS GOING TO START GETTING THE PT ON. WHEN HE DECIDED TO RETURN TO THE BED. THE SENIOR ASP NET DEVELOPER AND RN RETURNED THE PT TO THE BED. PLANNED TO RUN THE PT FOR 3 HOURS. BUT THE LAST 17 MIN IT BEGAN TO HAVE ART PRESSURE PROBLEMS. FLUSHED WITH NS, USED 2 ML OF HEPARIN BOLUS. DC'ED TX AT 14 MINS EARLY, WHEN IT WOULD NO LONGER RUN.
--- NOTE | 2018-10-09 17:08 | NUR ---
SHIFT SUMMARY PT A&Ox4 DURING SHIFT, PT UP TO CHAIR WITH PHYSICAL THERAPY THIS AM. RESTING IN BED FOR FOR MAJORITY OF SHIFT. PT REPORTING PAIN IN RLE, MEDICATED X1 PER EMAR. SOB WITH EXERTION, >90% ON RA, LS COARSE T/O. DENEIS NAUSEA T/O SHIFT. PT HAD HEMODIALYSIS THIS AM, THROUGH EDILBERTO, PT RECEIVING IV ANTIBIOTICS AND D10 T/O SHIFT. VSS. NO OTHER ACUTE CHANGES NOTED DURING SHIFT. WILL CONTINUE TO MONITOR UNITL REPORT GIVEN TO ONCOMING RN.
--- NOTE | 2018-10-09 17:46 | NUR ---
CBG 48 FROM VENOUS DRAW. PT RESPONDS TO VERBAL STIMULI, ASSYMPTOMATIC. PT GIVEN CHOCOLATE MILK AND VANILA ICE CREAM. NOTIFIED DR ROBINS, NEW ORDERS FOR Q4H BLOOD GLUCOSE CHECKS AND ONE TIME CHECK IN 1 HOUR. WILL CONTINUE TO MONITOR.
[2018-10-10 04:28] LABS: BASOPHILS ABSOLUTE AUTO 0.03 K/mm3 (0.00-0.23); BASOPHILS PERCENT AUTO 1 % (0-2); EOSINOPHILS ABSOLUTE AUTO 0.17 K/mm3 (0.00-0.68); EOSINOPHILS PERCENT AUTO 3 % (0-6); Hematocrit 28.4 % (37.0-53.0); Hemoglobin 8.4 g/dL (13.5-17.5); IMMATURE GRAN ABSOLUTE AUTO 0.03 K/mm3 (0.00-0.10); IMMATURE GRAN PERCENT AUTO 1 % (0-1); LYMPHOCYTES PERCENT AUTO 6 % (21-46); MONOCYTES ABSOLUTE AUTO 0.51 K/mm3 (0.16-1.47); MONOCYTES PERCENT AUTO 8 % (4-13); Mean Corpuscular HGB 28.9 pg (26.0-34.0); Mean Corpuscular HGB Conc 29.6 g/dL (31.5-36.5); Mean Corpuscular Volume 98 fL (80-100); NEUTROPHILS ABSOLUTE AUTO 5.44 K/mm3 (1.96-9.15); NEUTROPHILS PERCENT AUTO 83 % (41-73); Platelet Count 118 K/mm3 (150-400); RDW Coefficient Variation 15.9 % (11.7-14.2); RDW Standard Deviation 56.5 fL (35.1-46.3); Red Blood Cell Count 2.91 M/mm3 (4.30-5.90); White Blood Cell Count 6.58 K/mm3 (4.00-11.30)
[2018-10-10 04:32] LABS: Mean Platelet Volume 13.3 fL (9.1-12.4)
[2018-10-10 04:41] LABS: Albumin, Blood 1.8 g/dL (3.4-5.0); Anion Gap 9 mmol/L (6-16); Blood Urea Nitrogen 42 mg/dL (8-24); Bun/Creatinine Ratio 8.1 (12.0-20.0); CO2, Blood 29 mmol/L (21-32); Calcium, Blood 7.7 mg/dL (8.5-10.1); Chloride, Blood 96 mmol/L (98-108); Creatinine, Blood 5.18 mg/dL (0.60-1.20); Glomerular Filtration Rate 12 (60-); Glucose, Blood 62 mg/dL (70-99); Magnesium, Blood 2.2 mg/dL (1.6-2.4); Phosphorus, Blood 6.2 mg/dL (2.5-4.9); Potassium, Blood 4.9 mmol/L (3.5-5.5); Sodium, Blood 134 mmol/L (136-145)
--- NOTE | 2018-10-10 06:14 | NUR ---
BLOOD SUGAR PATIENT'S BLOOD SUGAR 43 WHEN CHECKED THIS MORNING WITH BLOOD DRAWN THROUGH THE TEMPORARY PERMACATH. THIS BLOOD SUGAR WAS TAKEN ON THE BLOOD THAT WAS SUPPOSED TO BE WASTED. WHEN CHECKED AGAIN WITH THE BEDSIDE BLOOD SUGAR MACHINE USING THE CORRECT BLOOD THAT WAS PULLED FOR THE LAB DRAW THE BLOOD SUGAR WAS 59 (THIS BLOOD SUGAR DOES NOT APPEAR TO HAVE PULLED THROUGH TO PATIENT'S CHART. APPEARS IN THE BLOOD SUGAR MACHINE. BLOOD SUGAR RESULTED AT [id number]). PATIENT EASILY WOKE TO VERBAL STIMULI AND TOUCH. PATIENT PROVIDED WITH ORANGE JUICE AND HAS BEEN DRINKING IT THROUGHOUT THE MORNING. WHEN LABS RESULTED THIS AM PATIENT'S BLOOD SUGAR WAS 62. PATIENT CONTINUES TO BE ALERT AND ORIENTED AND DRINKING ORANGE JUICE. CHARGE NURSE PHOEBE BLILINGSLEY AWARE. WILL CONTINUE TO MONITOR PATINET.
--- NOTE | 2018-10-10 06:23 | NUR ---
SHIFT SUMMARY PATIENT APPEARED TO SLEEP WELL THROUGHOUT MOST OF THE NIGHT. PATIENT PROVIDED WITH PAIN MEDICATION PER EMAR. PATIENT'S RIGHT LEG ELEVATED ON PILLOWS FOR COMFORT. PATIENT'S RIGHT ARM AND LEFT LEG CONTINUE TO BE SWOLLEN. PATIENT'S CONTINUES TO HAVE D10 RUNNING PER ORDERS. TEMPORARY PERMACATH IN PLACE AND APPEARS TO BE WORKING WELL AND INTACT. PATIENT HAS HAD VARIOUS SNACKS AND JUICES THROUGHOUT THE NIGHT. WILL CONTINUE TO MONITOR PATIENT AND REPORT TO ONCOMING RN.
--- NOTE | 2018-10-10 11:01 | NUR ---
RECEIVED REPORT ON PATIENT AT AM SHIFT CHANGE, ASSUMED CARE. PT PLEASANT AFFECT, HE IS COMPLAINT WITH CARE AND IS ABLE TO EXPRESS NEEDS APPROPRIATELY. PT CONTINUING ON D10 AT 80ML/HR, STOPPED FOR ADMINISTRATION OF ABX, THEN RESTARTED PER ORDER. POC IS FOR DIALYSIS TODAY AND 2 UNIT PRBC DURING DIALYSIS. WILL CONTINUE TO MONITOR CLOSELY AND FOLLOW ORDERS.
[2018-10-10 16:02] LABS: Vancomycin, Random 9.6 ug/mL
--- NOTE | 2018-10-10 16:03 | NUR ---
PT HAD DIALYSIS AND NENITA VILLEGAS STATES SHE TOOK 1500 ML OFF DURING HD TODAY. PT TOLERATED WELL, HE ASKS FOR BREATHING TREATMENT AND IS RESTING AT THIS TIME. WILL CONTINUE TO MONITOR CLOSELY.
--- NOTE | 2018-10-10 17:32 | NUR ---
PT HAD A GOOD DAY TODAY, HE IS IN GOOD SPIRITS, ABX AND D10 HAVE CONTINUED TO RUN THROUGHOUT TODAY, HE ADDITIONALLY RECEIVED TWO UNITS PRBC DURING DIALYSIS TODAY. PT IS SITTING UP FOR MEALS AND HAS EATEN MOST OF HIS MEALS, CALORIE COUNTING CONTINUING. WILL CONTINUE TO MONITOR CLOSELY AND GIVE REPORT TO ANITA GUTIERRES.
--- NOTE | 2018-10-10 17:37 | NUR ---
PT HEART RATE HAS INCREASED TO 150'S PER TELE MONITOR. PT STATES, "I'M DOING FINE." HE IS SITTING UP EATING HIS DINNER AT THIS TIME. WILL CONTINUE TO MONITOR CLOSELY.
--- NOTE | 2018-10-10 17:54 | NUR ---
PT ATE ALL HIS QUICHE AND RICE AND DID HAVE SOME NAUSEA. GAVE ZOFRAN PER EMAR.
--- NOTE | 2018-10-10 21:27 | NUR ---
HEART RATE DR MANTILLA NOTIFIED THAT PATIENT'S HEART RATE HAS BEEN TRENDING IN THE 130'S. ORDERS RECIEVED.
[2018-10-11 04:45] LABS: Hematocrit 33.9 % (37.0-53.0); Hemoglobin 10.5 g/dL (13.5-17.5)
[2018-10-11 05:02] LABS: Albumin, Blood 1.9 g/dL (3.4-5.0); Anion Gap 8 mmol/L (6-16); Blood Urea Nitrogen 37 mg/dL (8-24); CO2, Blood 30 mmol/L (21-32); Chloride, Blood 94 mmol/L (98-108); Creatinine, Blood 4.64 mg/dL (0.60-1.20); Glomerular Filtration Rate 13 (60-); Glucose, Blood 100 mg/dL (70-99); Magnesium, Blood 2.3 mg/dL (1.6-2.4); Phosphorus, Blood 5.4 mg/dL (2.5-4.9); Sodium, Blood 132 mmol/L (136-145)
--- NOTE | 2018-10-11 07:52 | NUR ---
SHIFT SUMMARY PATIENT PLEASENT AND COOPERATIVE THROUGHOUT THE NIGHT. PATIENT PROVIDED WITH PAIN MEDICATION PER EMAR. PATIENT APPEARED TO SLEEP WELL ON AND OFF THROUGHOUT THE NIGHT. PATIENT'S BLOOD SUGAR CHARTED. VITAL SIGNS CHARTED. D10 RUNNING PER ORDERS. REPORT GIVEN TO ONCOMING RN.
[2018-10-11 08:10] LABS: Glucose, Blood 81 mg/dL (70-99)
[2018-10-11 12:13] LABS: Glucose, Blood 188 mg/dL (70-99)
[2018-10-11 12:21] LABS: Vancomycin, Random 15.8 ug/mL
--- NOTE | 2018-10-11 12:48 | NUR ---
PT HAVING A GOOD DAY SO FAR, HE HAD DIAYLSIS THIS MORNING, PT TOLERATED WELL. PT BACK IN ROOM, HE REFUSED HIS LUNCH TRAY AND STATED THAT HE IS SUPPOSE TO BE REGULAR DIET VS SOFT BITE SIZE. WILL MENTION IT TO THE DOCTOR AND OFFER PATIENT SOMETHING ELSE FOR LUNCH. PT CONTINUES ON D10 AT 80 ML/HR AND ABX ORDERED.
[2018-10-11 17:57] LABS: Glucose, Blood 92 mg/dL (70-99)
--- NOTE | 2018-10-11 18:42 | NUR ---
PT HAD A GOOD DAY, HE HAD DIALYSIS THIS MORNING. PT IS COMFORTABLE IN THE ROOM, CONTINUING TO RUN D10 AT 80 ML/HR, ENCOURAGING INTAKE, CALORIE COUNT IS CONTINUING UNTIL TOMORROW AFTERNOON. PT WILL BE NPO AT MIDNIGHT FOR PROCEDURE TOMORROW WITH CARLENE PER POC. WILL GIVE REPORT TO ANITA GUTIERRES.
[2018-10-11 21:50] LABS: Glucose, Blood 88 mg/dL (70-99)
[2018-10-12 04:06] LABS: Hematocrit 34.5 % (37.0-53.0); Hemoglobin 10.6 g/dL (13.5-17.5)
[2018-10-12 04:27] LABS: Anion Gap 8 mmol/L (6-16); Blood Urea Nitrogen 36 mg/dL (8-24); Bun/Creatinine Ratio 7.6 (12.0-20.0); CO2, Blood 29 mmol/L (21-32); Calcium, Blood 8.2 mg/dL (8.5-10.1); Chloride, Blood 96 mmol/L (98-108); Creatinine, Blood 4.73 mg/dL (0.60-1.20); Glomerular Filtration Rate 13 (60-); Glucose, Blood 97 mg/dL (70-99); Magnesium, Blood 2.3 mg/dL (1.6-2.4); Phosphorus, Blood 5.4 mg/dL (2.5-4.9); Sodium, Blood 133 mmol/L (136-145)
--- NOTE | 2018-10-12 04:40 | NUR ---
END OF SHIFT SUMMARY PT ALERT AND ORIENTED, TALKING APPROPRIATELY WITH STAFF. REMAINS IN AFIB. CONTINUES TO HAVE DEXTROSE 10% INFUSING. GLUCOSE LEVELS HAVE REMAINED STABLE THIS SHIFT, LAST RESULT 97. PT HAS BEEN NPO SINCE MIDNIGHT FOR UPCOMING REVASCULARIZATION IN THE AM. L GROIN PERMACATH REMAINS INTACT, CAPS CHANGED. VSS. NO ACUTE CHANGES THIS SHIFT. HAS REQUIRED SOME PAIN MEDICATION. CALL LIGHT WITHIN REACH, PT USES APPROPRIATELY. WILL CONTINUE TO MONITOR PT UNTIL SHIFT CHANGE.
--- NOTE | 2018-10-12 12:45 | NUR ---
RECEIVED REPORT AND ASSUMED CARE OF PATIENT AT SHIFT CHANGE. HE IS NPO THIS AM FOR INTERVENTION PROCEDURE WITH DR. CONCEPCION; WHEN THIS RN PLACED CALL TO SOX ANALYST THEY STATED PT WILL NOT GO BACK UNTIL AFTER NOON SOMETIME AND TO GO AHEAD AND FEED PATIENT SMALL AMOUNT OF BREAKFAST. PROVIDED A MUFFIN, CLEAR ENSURE AND A JELLO CUP. PT WENT TO DIALYSIS THIS AM AND RETURNED TO THE ROOM FOR A SHORT TIME. DR CONCEPCION TO SEE PATIENT AT BEDSIDE AND OBTAINED CONSENT. PT TAKEN TO PROCEDURE IN SOX ANALYST.
--- NOTE | 2018-10-12 16:43 | NUR ---
RECEIVED CALL FROM SUPERVISOR TOWER, PT IS GOING TO BE RECOVERING IN ICU 6. WILL COLLECT ITEMS AND CALL REPORT TO TRANSIT OPERATIONS SUPERVISOR.
--- NOTE | 2018-10-12 18:30 | NUR ---
PT TRANSFERRED FROM PCU AFTER PROCEDURE. REPORT RECIEVED FROM JOSSE IN PCU AND QUIQUE AT [facility]. PT HAS BILATERAL GROIN SITES WITH MINIMAL DRAINAGE NOTED. SLIGHT BRUISE TO RIGHT GROIN AND SMALL KNOT NOTED BENEATH SITE. DRESSINGS OVER SUTURES ON LEFT ARM AT FISTULA SITE. CALL TO DR KINNEY FOR PT'S TACHYCARDIA IN 130S TO 160S. CARDIZEM GTT ORDERED.
--- NOTE | 2018-10-12 19:13 | NUR ---
CARDIZEM GTT STARTED AT 5ML/HR PER INSTRUCTIONS. ASSESSED RIGHT ARM FOR SECOND IV SITE BUT NO AVAILABLE SITE NOTED WITH TOURNIQUET. PT RESTING AT THIS TIME. DID NOT GIVE PT TRAY AT THIS TIME DUE TO NOT FOLLOWING INSTRUCTIONS ENOUGH TO KEEP HEAD DOWN
--- NOTE | 2018-10-12 21:30 | NUR ---
ASSUMED PT CARE 2029. SUTURE REMOVAL L FOREARM COMPLETED, SUTURES WERE VERY TIGHT AT SITE JUST DISTAL TO L ANTECUBITAL. 1X1 FOAM DRSG APPLIED TO SITES. THRILL NOTED. BILAT FEMORAL SITES CONT SOFT, VERY MINIMAL OOZE NOTED R GROIN, WILL CONT TO MONITOR. PT HAS WOUND R LOWER LEG, ANT SURFACE, DRY CRUSTED & SUTURES NOTED. PT IS AWAKE, ALERT & COOPERATIVE. PT HAS CO "PAIN ALL OVER", BUT REFUSES TO TAKE ROXICODONE, "IT DOESN'T WORK, AND DON'T TRY TO SLIP IT IN MY PILLS" PT ASKS THIS RN TO "CALL THE DR, AND SEE IF I CAN HAVE SOME DILAUDID JUST FOR TONIGHT". CARDIZEM GTT CONTINUES AT 5MG/HR, AND D5W 80CC/HR. PT IS EMOTIONALLY LABILE, SAYS, "I JUST WANT TO BE DONE WITH ALL THIS" & [facility] PT STATES THAT HE IS HUNGRY, BUT THEN REFUSES WHAT IS OFFFERED OR ALTERNATIVES. CONT TO MONITOR. PT IS VERY DIFFICULT IV START, POOR & LIMITED ACCESS, SEVERAL ATTEMPTS MADE FOR SECOND SITE. POWERGLIDE WAS PLACED WO DIFFICULTY & ZOSYN INFUSING PER 4HR PROTOCOL TO ERVIN.
--- NOTE | 2018-10-13 03:30 | NUR ---
AFTER PT REFUSED PAIN MED, PT AGREED TO TAKE, AND WAS MED W ROXICODONE 10 MG. PT STATES "I HURT ALL OVER". PT REFUSED TO TAKE MELATONIN BECAUSE "IT'S OVER THE COUNTER & DOESN'T WORK". POWERGLIDE IV TO ERVIN INFUSED FOR OVER AN HOUR SEEMINGLY WO DIFFICULTY, BUT THEN NO LONGER PATENT. DRSG TAKEN DOWN & CONT NOT PATENT. NEW PERIIPHERAL SITE STARTED & CARDIZEM GTT RESTARTED AT 5MG/HR.
--- NOTE | 2018-10-13 04:20 | NUR ---
PT FINALLY RESTING AFTER BEING RESTLESS & CALLING OUT FREQUENTLY. HAS BEEN REFUSING SANDWICHES OR OTHER FOOD, EARLIER. HR CONT 130-140, BP GEN 90'S. FEMORAL GROIN SITES CONT SOFT & WO BLEEDING. PT VOIDED EARLIER PER URINAL W ASSISTANCE, ONLY 150CC, LITE CANDELARIA COLOR.
[2018-10-13 06:19] LABS: Albumin, Blood 1.8 g/dL (3.4-5.0); Anion Gap 9 mmol/L (6-16); Blood Urea Nitrogen 32 mg/dL (8-24); Bun/Creatinine Ratio 6.7 (12.0-20.0); CO2, Blood 28 mmol/L (21-32); Chloride, Blood 97 mmol/L (98-108); Creatinine, Blood 4.79 mg/dL (0.60-1.20); Glomerular Filtration Rate 13 (60-); Glucose, Blood 94 mg/dL (70-99); Magnesium, Blood 2.2 mg/dL (1.6-2.4); Potassium, Blood 4.5 mmol/L (3.5-5.5); Sodium, Blood 134 mmol/L (136-145)
--- NOTE | 2018-10-13 10:30 | NUR ---
DIALYSIS: PT TO DIALYSIS AT THIS TIME
--- NOTE | 2018-10-13 10:40 | NUR ---
R LEG SUTURES: LARGE LACERATION THAT WAS SUTURED. REPORT FROM ED NOTES WAS SUTURED 2 DAYS [facility]. UNSURE OF THE TOTAL NUMBER OF SUTURES. 3 SUTURES REMOVED AT THIS TIME. PT HAS TENDERNESS CAUSING LEG TWITCHES WHILE ATEMPTING TO REMOVE MORE OF THE SUTURES. SOME REDNESS NOTED AROUND THE EDGES OF THE LACERATION. SOME SUTURES APPEAR TO BE UNDER THE SKIN OR COVERED IN DRIED SECREATIONS/DRAINAGE. WILL CONTINUE TO MONITOR. PLACED WET GAUZE SATURATED IN WOUND INFORMATICS CONSULTANT TO SOFTEN SCABING TO POSSIBLY ASSIST WITH REMOVAL WITH LESS PAIN.
--- NOTE | 2018-10-13 12:53 | NUR ---
CARDIZEM: NEW BAG OF CARDIZEM PLACED WHILE DOWN IN DIALYSIS. UNABLE TO SCAN MANUALING DOCUMENTED.
[2018-10-13 14:19] LABS: Vancomycin, Random 16.6 ug/mL
--- NOTE | 2018-10-13 14:19 | NUR ---
SUTURES: REMOVED 8 MORE SUTURES FROM R LEG LACERATION. NO OTHERS NOTED.
--- NOTE | 2018-10-13 14:43 | NUR ---
CALL TO [facility]: [facility] TO [facility] IF [facility] COULD VERAFY NUMBER OF SUTURES PLACED IN PT R LEG LACERATION. [facility] IS UNABLE TO VERFY NUMBER OF SUTURES, DR WHO PLACED SUTURES STATES HE DOES NOT USUALLY STATE NUMBER IN NOTES. TOTAL OF 11 SUTURES REMOVED.
[2018-10-13 18:06] LABS: TOTAL INSULIN 6.4 uU/mL (.)
--- NOTE | 2018-10-13 18:24 | NUR ---
TRANSFER TO PCU: REPORT GIVEN TO YISEL RUDOLPH RN ON PT. PT AWARE OF TRANSFER. NO DISTRESS NOTED.
--- NOTE | 2018-10-13 19:28 | NUR ---
TRANSFER NOTE RECEIVED REPORT FROM NENITA JACOBO IN ICU. PT TO ROOM AT 1845, 4 PERSON TRANSFER TO BED WITH SLIDER SHEET. PT ORIENTED TO ROOM AND CALL LIGHT. BED IN LOW, CALL LIGHT WITH IN REACH. PT A&Ox4. NO DISRESS NOTED. D5 RUNNING AT 80ML/HR AND CARDIZEM AT 15MG/HR. VSS. REPORT GIVEN TO ONCOMING RN.
--- NOTE | 2018-10-14 01:45 | NUR ---
Assumed care Assumed care of pt at approx 1900 from NENITA Abarca. Pt VSS, linsey gtt infusing to R groin access at 15; D5 infusing to R groin at 80ml/hr. Zosyn infusing to ERVIN powerglide, patent. Pt alert and oriented, able to make needs known, uses the call light frequently. Pt appears comfortable, in apparent sign of distress, breathing easy and unlabored. Pt complaint of continued pain throughout BLE, medicated and repositioned per orders. See shift assessment for detailed systems assessment. Will continue to monitor.
--- NOTE | 2018-10-14 02:41 | NUR ---
CARDIZEM GTT RATE CHANGE at 0230 cardizem gtt titrated from 15 mg/hr to 10 mg/hr per guidelines. Pt has maintained HR <110 since 10/13/18 at 2130, and maintained HR in 90's since approx 0200. Will continue to monitor and titrate as appropriate per orders and guidelines.
[2018-10-14 03:55] LABS: Hemoglobin 8.8 g/dL (13.5-17.5)
[2018-10-14 04:11] LABS: Albumin, Blood 1.6 g/dL (3.4-5.0); Anion Gap 7 mmol/L (6-16); Blood Urea Nitrogen 28 mg/dL (8-24); Bun/Creatinine Ratio 6.7 (12.0-20.0); CO2, Blood 30 mmol/L (21-32); Calcium, Blood 7.8 mg/dL (8.5-10.1); Chloride, Blood 98 mmol/L (98-108); Creatinine, Blood 4.21 mg/dL (0.60-1.20); Glomerular Filtration Rate 15 (60-); Glucose, Blood 90 mg/dL (70-99); Magnesium, Blood 2.2 mg/dL (1.6-2.4); Phosphorus, Blood 5.3 mg/dL (2.5-4.9); Potassium, Blood 4.1 mmol/L (3.5-5.5); Sodium, Blood 135 mmol/L (136-145)
--- NOTE | 2018-10-14 04:42 | NUR ---
SHIFT SUMMARY No acute changes this shift. VSS. Remains alert and oriented. Pt with complaint of pain throughout this shift, no further complaints after oxycodone given per orders. Pt able to sleep after pain medication given. Pt with Moy rbowning infusing cardizem and d5 per orders. Cardizem gtt rate change as noted in previous note to 10 mg/hr with rates trending in 90's. Pt with no acute events on tele. No changes in O2 demand. No changes from initial shift assessment. Pt in no apparent sign of distress. Hand off given to NENITA Talbot to monitor until end of shift.
--- NOTE | 2018-10-14 05:15 | NUR ---
ASSUMPTION OF CARE: REPORT RECIVED FROM NENITA MORA. ASSUMED CARE OF PATIENT AT THIS TIME.
--- NOTE | 2018-10-14 07:39 | NUR ---
SHIFT SUMMARY PATIENT APPEARED TO SLEEP ON AND OFF THROUGHOUT THE REST OF THE NIGHT. PATIENT PROVIDED WITH PAIN MEDICATIONS PER ORDERS. IV DIGOXIN GIVEN PER ORDERS. VITALS CHARTED. PATIENT APPEARS PLEASENT AND INTERACTIVE WITH STAFF THIS MORNING. REPORT GIVEN TO ONCOMING RN.
--- NOTE | 2018-10-14 07:44 | NUR ---
LATE ENTRY PT ALERT AND ORIENT x3. WHEN ASKED FOR THE DATE PT STATES 191 AND STATES MARK PINEDA IS THE PRESIDENT, THEN STARTS LAUGHING. THE PT THEN STATES THE PRESIDENT IS TRUMP. PT RESTING IN BED. PT STATING >90% ON RA, BREAHTING EVEN AND UNLABORED. PT REPORTS PAIN 5/10, STATES THAT IS DOES NOT GET LOWER THAN 5/10 EVEN WITH PAIN MEDICATIONS. PT HAS D5 AT 80ML PER HOUR AND CARDIZEM AT 10MG/HR. TELE AFIB AVERAGING 106. LAC TO RIGHT DELONG OPEN TO AIR, NO DRAINAGE NOTED. PT REPORTS WANTING TO BE PLACED ON REGULAR DIET, PT EDUCATED ON CURRENT DIET AND REASONING, PT CONTINUES TO BE UPSET. VSS. WILL CONTINUE TO MONITOR.
--- NOTE | 2018-10-14 09:35 | NUR ---
PT TO DIALYSIS
--- NOTE | 2018-10-14 10:04 | NUR ---
pt had 3 sec pause, while over in dialysis. per tele afib at 90-100's, titrated from cardizem from 10mg/hr to 5mg/hr. will cotinue to monitor.
--- NOTE | 2018-10-14 11:21 | NUR ---
DIALYSIS PT HAS DECIDED TO REFUSE THE 2 TRANSFUSIONS AT THIS TIME. I REPORTED TO HIS NURSE.
[2018-10-14 13:21] LABS: Vancomycin, Random 18.9 ug/mL
--- NOTE | 2018-10-14 15:47 | NUR ---
CALLED DR ROBINS TO CLAFIFY ORDERS FOR DIGOXIN AND CARDIZEM, NEW ORDERS TO D/C CARDIZEM AND CONTINUE TO MONITOR HR. WILL CONTINUE TO MONITOR.
--- NOTE | 2018-10-14 17:35 | NUR ---
NOTIFIED DR ROBINS HEART RATE TRENDING UP SINCE D/C OF CARDIZEM DRIP AND PT REFUSAL TO EAT; NEW ORDERS TO ADMINISTER 2100 METOPROLO NOW AND ENCOURAGE PT TO EAT. WILL CONTINUE TO MONITOR.
--- NOTE | 2018-10-14 18:26 | NUR ---
SHIFT SUMMARY PT A&Ox3. IRRITABLE BUT COOPERATIVE WITH CARE. PT RESTING IN BED DURINGS SHIFT. UP WITH 2 PERSON MAX ASSIST. PT HAD DIALYSIS THIS AM, REFUSED TRANSFUSION PER CHARGING BOARD OPERATOR. PT HR TRENDING DOWN WITH CARDIZEM AND DIGOXIN THIS AM, TITRATED CARDIZE THEN D/C PER DR ROBINS ORDERS. ONCE CARDIZEM STOPPED PT HR AND BP TRENDING UP, NOTIFIED, GAVE 2100 METOPROLOL EARLY PER ORDERS. PT CONTINUES TO RECEIVE IV ANTIBIOTICS. PT CONTINES TO RECEIVE CONTINUOUS D5, RATE REDUCED FROM 80ML/HR TO 40ML/HR. PT ENCORAGED TO EAT MEALS, PT REFUSED LUNCH AND DINNER, NOTIFIED, WILL CONTINUE ORAL INTAKE. OTHER VSS. WILL CONTINUE TO MONITOR UNTIL REPORT GIVEN TO ONCOMING RN.
--- NOTE | 2018-10-14 21:50 | NUR ---
Assumed care of pt at approx 1900. Pt presents in bed, resting with eyes closed, breathing easy and unlabored on RA. Vitals obtained and VSS. Pt conversing appropriately with this RN, alert and oriented. Pt recieving D5 at 40ml/hr per orders, zosyn continues to infuse from previous shift. See shift asssessment for detailed systems assessment. Merherker site appears unchanged from previous shift, blood is present on tegaderm which is consistant with pervious shift, no active bleed, no hematoma, no tenderness seen or reported. Pt with transient n/t to BUE and BLE. Pt uses call light frequently, pt instructed on appropriate use of call button. Pt re-educated on nurse roundings. Pt continues to call frequently. Pt with large, loose, brown, non-oderous BM this shift. Pt was encouraged to use BSC for mobility, but refused. Bedpan used instead. Will continue to monitor and update as needed.
[2018-10-15 03:54] LABS: Hematocrit 34.4 % (37.0-53.0); Hemoglobin 10.4 g/dL (13.5-17.5)
[2018-10-15 04:10] LABS: Anion Gap 8 mmol/L (6-16); Blood Urea Nitrogen 21 mg/dL (8-24); Bun/Creatinine Ratio 5.6 (12.0-20.0); CO2, Blood 30 mmol/L (21-32); Calcium, Blood 8.2 mg/dL (8.5-10.1); Chloride, Blood 99 mmol/L (98-108); Creatinine, Blood 3.72 mg/dL (0.60-1.20); Glomerular Filtration Rate 17 (60-); Glucose, Blood 74 mg/dL (70-99); Magnesium, Blood 2.2 mg/dL (1.6-2.4); Phosphorus, Blood 4.6 mg/dL (2.5-4.9); Potassium, Blood 3.8 mmol/L (3.5-5.5); Sodium, Blood 137 mmol/L (136-145)
--- NOTE | 2018-10-15 06:23 | NUR ---
Shift Summary No acute changes this shift. Pt with one loose BM, used bedpan. VSS, no changes in o2 demand, breathing remains easy and unlabored. Pt continues to converse with staff, calls frequently, remains alert and oriented. Pt expresses anxiety related to prognosis, stating to this RN this shift "I don't know if I will ever make it out of here, this might be my last go around". No further changes from inital assessment. ABX infusing per orders, pain addressed with oxycodone per orders. Pt slept on and off this shift. Call light in reach, calls frequently. Ravindra in this AM, no further changes to plan of care at this time. Will continue to monitor until end of shift.
--- NOTE | 2018-10-15 08:00 | NUR ---
pt laying in bed awake watching tv. he is cooperative with care, with lots of needs, complaining he doesn't want to eat, glucose was low and rechecked via finger, was 60, got him juice and strongly encouraged him to eat, he vomited after, requested zofran, lungs are clear in upper airway, but bronchial area sounds wet, dim in bases, he has a wet cough that he appears to be swallowing. resp even and unlabored, hrirr, tele in place running afib per monitor, see strip, has a power glide to eulogio site is clear and patent, dialysis cath to left groin, is clear with d5 infusing at 10mls/hr, spoke with dialysis nurse today, and will not be recieving dialysis today, btx4, abd round soft nontender, does not void, skin has scab to left leg, healing laceration, some bruising, other lancaster intact, maroseline, weak, bigg, call light in reach.
--- NOTE | 2018-10-15 13:30 | NUR ---
pt refused lunch, wants to sleep, no complaints. was not willing to try anything. call light in reach.
--- NOTE | 2018-10-15 18:13 | NUR ---
pt had an uneventful day, has been in good spirits for the most part, medicated for pain once, very poor appetite, no acute changes this shift, call light in reach.
--- NOTE | 2018-10-16 00:48 | NUR ---
PATIENT HAVING LOW BLOOD SUGARS INTO THE 60'S. RECIEVED JUICE AND SNACKS.
[2018-10-16 04:20] LABS: Hematocrit 33.3 % (37.0-53.0); Hemoglobin 9.8 g/dL (13.5-17.5)
[2018-10-16 04:36] LABS: Albumin, Blood 1.9 g/dL (3.4-5.0); Anion Gap 4 mmol/L (6-16); Blood Urea Nitrogen 32 mg/dL (8-24); Bun/Creatinine Ratio 7.2 (12.0-20.0); CO2, Blood 32 mmol/L (21-32); Calcium, Blood 8.3 mg/dL (8.5-10.1); Chloride, Blood 100 mmol/L (98-108); Creatinine, Blood 4.42 mg/dL (0.60-1.20); Glomerular Filtration Rate 14 (60-); Glucose, Blood 63 mg/dL (70-99); Magnesium, Blood 2.5 mg/dL (1.6-2.4); Phosphorus, Blood 5.9 mg/dL (2.5-4.9); Potassium, Blood 4.5 mmol/L (3.5-5.5); Sodium, Blood 136 mmol/L (136-145)
--- NOTE | 2018-10-16 05:20 | NUR ---
PATIENT BGL DOWM TO 45 FROM 53 AFTER HAVING ORANGE JUICE, CHEESE, AND CRACKERS. PATIENT GIVEN 12.5MG OF D50 PER PROTOCOL. NOTIFIED DR. SANCHEZ WHO ORDERED D5 1/2 MS @ 75 FOR 1L. NO OTHER ORDERS TAKEN AT THIS TIME.
--- NOTE | 2018-10-16 06:24 | NUR ---
PATIENT HAVING DROPS IN BGL EVERY 3 TO 4 HRS. RECIEVING SNACKS OF JUICE AND PROTEIN. PATIENT CONTINUES TO HAVE DIFFICULTIES, NOW RECIEVING IV FLUIDS TO MAINTAIN. PATIENT CONTINUES TO COMPLAIN OF CHRONIC PAIN IN LEGS. PATIENT HAS HAD MULTIPLE LOOSE STOOLS TONIGHT. STATES HE DOES NOT WANT ANY MORE DSS. PATIENT REPOSITION IN BED EVERY TWO HRS. PATIENT DOES HAVE SLIGHT REDNESS ON COCCYX APPLIED BARRIER CREAM.
--- NOTE | 2018-10-16 07:47 | NUR ---
pt laying in bed, seems to be in good spirits this am, a/ox3, cooperative with care, follows commands well, states he is having some pain, and would like something with his morning meds, repositioned him in bed, he states he is willing to get up to chair for breakfast, blood glucose is low so will hold off on that for now, d5 is infusing at this time, lungs are clear in upper demarco, dim with some crackles in bases, sats are 99% on 2 liters, has a wet cough but appears to be swallowing any sputum, hrirr, tele in place running afib per monitor, see strip, no edema noted to b/l le but right forarm is swollen, maew, weak, bigg, call light in reach.
--- NOTE | 2018-10-16 09:00 | NUR ---
pt taken to dialysis via bed, will hold metoprolol per Emile dialysis nurse.
[2018-10-16 11:37] LABS: BASOPHILS ABSOLUTE AUTO 0.08 K/mm3 (0.00-0.23); BASOPHILS PERCENT AUTO 1 % (0-2); EOSINOPHILS ABSOLUTE AUTO 0.29 K/mm3 (0.00-0.68); EOSINOPHILS PERCENT AUTO 4 % (0-6); Hematocrit 32.7 % (37.0-53.0); Hemoglobin 9.9 g/dL (13.5-17.5); IMMATURE GRAN ABSOLUTE AUTO 0.02 K/mm3 (0.00-0.10); IMMATURE GRAN PERCENT AUTO 0 % (0-1); LYMPHOCYTES ABSOLUTE AUTO 0.48 K/mm3 (0.84-5.20); LYMPHOCYTES PERCENT AUTO 7 % (21-46); MONOCYTES ABSOLUTE AUTO 0.45 K/mm3 (0.16-1.47); MONOCYTES PERCENT AUTO 6 % (4-13); Mean Corpuscular HGB 28.7 pg (26.0-34.0); Mean Corpuscular HGB Conc 30.3 g/dL (31.5-36.5); Mean Platelet Volume 12.2 fL (9.1-12.4); NEUTROPHILS ABSOLUTE AUTO 5.78 K/mm3 (1.96-9.15); NEUTROPHILS PERCENT AUTO 81 % (41-73); Platelet Count 174 K/mm3 (150-400); RDW Coefficient Variation 14.9 % (11.7-14.2); RDW Standard Deviation 51.8 fL (35.1-46.3); Red Blood Cell Count 3.45 M/mm3 (4.30-5.90)
[2018-10-16 11:45] LABS: Vancomycin, Random 15.8 ug/mL
[2018-10-16 12:00] LABS: Mean Corpuscular Volume 95 fL (80-100)
--- NOTE | 2018-10-16 14:33 | NUR ---
pt was medicated with fentanyl right after returning from dialys, states his legs are hurting, he then wanted dina and this was given, he is resting comfortably at this time. call light in reach.
--- NOTE | 2018-10-16 16:00 | NUR ---
had icu nurse assess right arm, she feels that the power glide may be infiltrated, discontinued use until she can look at another iv source. pt on the phone worried about his wheelchair he states is at [facility], otherwise is pleasant and calm today. call light in reach.
--- NOTE | 2018-10-16 18:31 | NUR ---
new power glide placed by icu nurse. pt tolerated well, is asking for a pain pill, will medicate for pain, no further changes or needs. call light in reach.
--- NOTE | 2018-10-16 20:05 | NUR ---
PATIENT BGL 61, GIVEN OJ, CRACKERS AND A MILK SHAKE.
--- NOTE | 2018-10-16 23:43 | NUR ---
PATIENT BGL IS DOWN IN THE 60'S AGAIN. PATIENT GIVEN OJ CHEESE CRACKERS AND PUDDING AT REQUEST.
[2018-10-17 04:52] LABS: Albumin, Blood 1.9 g/dL (3.4-5.0); Anion Gap 4 mmol/L (6-16); Blood Urea Nitrogen 31 mg/dL (8-24); Bun/Creatinine Ratio 7.8 (12.0-20.0); CO2, Blood 32 mmol/L (21-32); Calcium, Blood 8.3 mg/dL (8.5-10.1); Chloride, Blood 102 mmol/L (98-108); Creatinine, Blood 3.96 mg/dL (0.60-1.20); Glomerular Filtration Rate 16 (60-); Glucose, Blood 110 mg/dL (70-99); Phosphorus, Blood 4.7 mg/dL (2.5-4.9); Potassium, Blood 4.3 mmol/L (3.5-5.5); Sodium, Blood 138 mmol/L (136-145)
--- NOTE | 2018-10-17 06:13 | NUR ---
PATIENT MANIFEST CLERK LIGHT FREQUENTLY. GIVEN PRN'S FOR PAIN MEDICATION MULTIPLE TIMES THROUGH THE NIGHT FOR BURNING PAIN IN HIS LEGS. PATIENT SUGAR LOW AT 2000 AND 0000. PATIENT SNACKING MULTIPLE TIMES THROUGH OUT THE NIGHT.
--- NOTE | 2018-10-17 12:09 | NUR ---
PT HAS BEEN RESTING IN BED THROUGHOUT THE MORNING. LUNGS REMAIN DIM WITH SLIGHT WHEEZES ON THE R SIDE. PT'S BLOOD SUGAR HAS BEEN IN THE 60S AND 70S, HE IS EATING ALL OF HIS MEALS. BP STABLE, AFIB WITH RATE IN THE 100-120S. NO REQUESTS ROM PT AT THIS TIME. CONTINUING TO MONITOR.
--- NOTE | 2018-10-17 17:10 | NUR ---
SHIFT SUMMARY: PT HAS HAD NO ACUTE EVENTS THIS SHIFT. HE IS ALERT AND ORIENTED, LUNGS CLEAR. REMAINS IN AFIB, BUT RATE IN THE 70-80S AT REST, BP STABLE. HE IS EATING ALL OF HIS MEALS. HIS LOWEST BLOOD SUGAR TODAY WAS IN THE 60S AND HE WAS ASYMPTOMATIC. NO VOIDS TODAY AND PT DID NOT HAVE DIALYSIS. ALL QUESTIONS HAVE BEEN ANSWERED. CONTINUING TO MONITOR.
--- NOTE | 2018-10-17 17:24 | NUR ---
Patient refused dinner because the kitchen would not bring him a baked potato.
--- NOTE | 2018-10-17 19:56 | NUR ---
Assumed care of pt at approx 1900. Pt presents sitting in bed, 2L NC in place, watching TV. VSS. No complaints of SOB or chest pain. Pt c/o moderate pain which has been medicated per orders by previous shift RN. Pt in no apparent sign of distress. Shee shift assessment for detailed systems assessment. Will continue to monitor and update. Call light in reach, bed is low and locked, pt is able to make needs known.
[2018-10-18 03:45] LABS: BASOPHILS ABSOLUTE AUTO 0.09 K/mm3 (0.00-0.23); BASOPHILS PERCENT AUTO 1 % (0-2); EOSINOPHILS ABSOLUTE AUTO 0.26 K/mm3 (0.00-0.68); EOSINOPHILS PERCENT AUTO 3 % (0-6); Hematocrit 32.7 % (37.0-53.0); Hemoglobin 9.6 g/dL (13.5-17.5); IMMATURE GRAN ABSOLUTE AUTO 0.05 K/mm3 (0.00-0.10); IMMATURE GRAN PERCENT AUTO 1 % (0-1); LYMPHOCYTES ABSOLUTE AUTO 0.63 K/mm3 (0.84-5.20); LYMPHOCYTES PERCENT AUTO 7 % (21-46); MONOCYTES ABSOLUTE AUTO 0.52 K/mm3 (0.16-1.47); MONOCYTES PERCENT AUTO 6 % (4-13); Mean Corpuscular HGB 28.7 pg (26.0-34.0); Mean Corpuscular HGB Conc 29.4 g/dL (31.5-36.5); Mean Platelet Volume 11.7 fL (9.1-12.4); NEUTROPHILS ABSOLUTE AUTO 7.25 K/mm3 (1.96-9.15); NEUTROPHILS PERCENT AUTO 82 % (41-73); Platelet Count 195 K/mm3 (150-400); RDW Coefficient Variation 15.1 % (11.7-14.2); RDW Standard Deviation 53.8 fL (35.1-46.3); Red Blood Cell Count 3.34 M/mm3 (4.30-5.90)
[2018-10-18 03:50] LABS: Mean Corpuscular Volume 98 fL (80-100)
[2018-10-18 04:09] LABS: Anion Gap 5 mmol/L (6-16); Blood Urea Nitrogen 40 mg/dL (8-24); Bun/Creatinine Ratio 8.7 (12.0-20.0); CO2, Blood 31 mmol/L (21-32); Chloride, Blood 104 mmol/L (98-108); Creatinine, Blood 4.62 mg/dL (0.60-1.20); Glomerular Filtration Rate 13 (60-); Glucose, Blood 115 mg/dL (70-99); Magnesium, Blood 2.4 mg/dL (1.6-2.4); Phosphorus, Blood 4.9 mg/dL (2.5-4.9); Potassium, Blood 4.9 mmol/L (3.5-5.5); Sodium, Blood 140 mmol/L (136-145)
[2018-10-18 04:22] LABS: Digoxin (Lanoxin) 1.21 ug/mL (0.80-2.00)
--- NOTE | 2018-10-18 04:26 | NUR ---
Shift Summary Pt with no acute changes this shift. Slept on and off. VSS. Pt is currently medical status with no tele per orders. Pt denies SOB. CBG stable. Able to reposition self in bed, uses call light to make needs known, call light in reach. Pt with ERVIN powerglide, patent and draws, and Laurie hickman, flushes, S/L. Pt scheduled to have CXR this AM. Pt remains alert and oriented. No changes from initial shift assessment. Will continue to monitor and provide care until hand off given to day shift RN.
--- NOTE | 2018-10-18 06:05 | NUR ---
Pt off unit for xray. left by bed at 0605.
--- NOTE | 2018-10-18 07:31 | NUR ---
ASSUMED CARE: PT RESTING IN BED, ASKING FOR PAIN MEDICATION FOR LEGS. ALERT AND ORIENTED ON ROOM AIR AT THIS TIME. DENIES FURTHER NEEDS OR CONCERNS
--- NOTE | 2018-10-18 09:35 | NUR ---
PT TO DIALYSIS AT 0720 VIA BED BY HOSPITAL STAFF
--- NOTE | 2018-10-18 10:12 | NUR ---
DR LOPEZ AWARE THAT PT REQUESTING IV ZOFRAN. DR ALSO AWARE OF PT'S IMPROVED CBGS
--- NOTE | 2018-10-18 12:24 | NUR ---
PT RETURNED FROM DIALYSIS. STATES HE HAS NO APPETITE SO PHOSPHORUS BINDER HELD. RECHECKED PULSE AND SPO2, 2L NC PUT BACK ON DUE TO LOW O2 SAT. DENIES FURTHER NEEDS OR CONCERNS AT THIS TIME.
--- NOTE | 2018-10-18 13:52 | NUR ---
PT WAS TOLD THAT JANES LAZAR REFUSED HIM DUE TO BEHAVIORS FROM LAST ADMISSION. PT WAS UPSET AND WANTED TO FIRE DR LOPEZ FOR THIS CONVERSATION AND FOR PRIOR CONVERSATIONS HE HAD WITH HIM. CALL TO PT ADVOCATE WHO STATED SHE WILL COME BY TO SEE PT LATER TODAY. DISCUSSED WITH ELECTRICIAN ASSISTANT AND COORDINATOR WHO STATE THAT PT UNABLE TO FIRE MD FOR THIS. VISITOR AT BEDSIDE AND PT HAS BEEN VENTING TO HER. DISCUSSED INFORMATION WITH PT WHO SEEMS IN BETTER SPIRITS NOW BUT STILL IRRITATED
--- NOTE | 2018-10-18 14:37 | NUR ---
PT ADVOCATE EXITED ROOM AND STATED THAT SHE WAS GOING TO SPEAK WITH HECTOR BARBOSA AND WITH JANES LAZAR ABOUT PT'S SITUATION. ADVOCATE STATES SHE WILL CALL TO UPDATE STAFF WHEN SHE KNOWS ANY INFORMATION. COORDINATOR AWARE
--- NOTE | 2018-10-18 16:01 | NUR ---
MERHERKER DEVICE REMOVAL INFECTION CONTROL NURSE RECOMMENDED MERHERKER BE REMOVED. CALL TO DIALYSIS NURSE TO VERIFY THAT FISTULA HAS BEEN USED AND NOT MERHERKER. CALL TO DR FERNÁNDEZ WHO GIVES ORDER TO REMOVE. DISCUSSED WITH NURSING BICYCLE REPAIRMAN AND LITIGATION SUPPORT ANALYST OF ICU AND PCU. RECOMMENDATION TO DISCUSS WITH SURGEON. DR CHRISTINE STATES OK FOR NURSE TO REMOVE. AWAITING OT TO FINISH WITH PT. LITIGATION SUPPORT ANALYST AWARE
--- NOTE | 2018-10-18 17:17 | NUR ---
MERHERKER REMOVED AND PRESSURE HELD FOR TEN MINUTES. PETROLEUM GAUZE IN PLACE. PT INSTRUCTED TO KEEP FLAT. NURSE STEPPED OUT OF ROOM AND HEARD BED MOVEMENT. PT HOLLERED OUT FOR STAFF. SITE BEGAN TO REBLEED. PRESSURE HELD FOR 30 MINUTES. KIRAN DRESSING PUT IN PLACE. PT HAS BLANKET OVER LEG REMINDER TO KEEP LEG STRAIGHT AND FLAT. CLOTH LAYER INSTRUCTED PT THAT HE WOULD HAVE TO LAY STRAIGHT UNTIL DINNER. TAR PROCESSING TECHNICIAN REPORTS CBG IN 60S, ORANGE JUICE PROVIDED. NO FURTHER NEEDS AT THIS TIME.
--- NOTE | 2018-10-18 17:41 | NUR ---
SHIFT SUMMARY PT REMAINS FLAT UNTIL 1800 THEN HE CAN SIT UP TO EAT DINNER PER BRAKE SPECIALIST. PT AGREEABLE TO THIS. REPORT GIVEN TO MEDICAL FLOOR RN SOTO. PT TO BE TRANSFERRED AFTER DINNER. WORKED WITH PHYSICAL THERAPY TODAY UP TO SIDE OF BED. PLAN IS FOR DC TO SNF. ARRANGEMENTS PER DISCHARGE PLANNING
--- NOTE | 2018-10-18 19:05 | NUR ---
PT TRANSFERRED TO MEDICAL FLOOR. CHARGE RNS AWARE OF REBLEED OF LU AND TO MONITOR OVERNIGHT. DAY RN ALSO VISULAIZED SITE AND INSTRUCTED TO MONITOR FOR REBLEED
--- NOTE | 2018-10-18 22:18 | NUR ---
PT. REQUESTED PAIN MEDICATION. STATED TRAMADOL DOES NOT WORK. OXYCODONE BROUGHT TO PT. PER EMAR. PT. UPSET OXYCODONE 5MG NOT 10MG. REFUSED TO TAKE MED. MEDICATION WASTED IN THE PYXIS WITH MARGO GUTIERRES.
--- NOTE | 2018-10-19 05:16 | NUR ---
SHIFT SUMMARY- NO ACUTE CHANGES OVERNIGHT. PT. RESTED WELL T/O THE NIGHT. UP TO BSC W/2 ASSIST, HAD LARGE BM. DSG TO THE LT LEG and LT GROIN C/D/I. DENIES NEEDS AT THIS TIME. CALL LIGHT WITHIN REACH AND SIDE RAILS UP X2. WILL CONT TO MONITOR.
[2018-10-19 05:31] LABS: Hematocrit 32.2 % (37.0-53.0); Hemoglobin 9.4 g/dL (13.5-17.5)
[2018-10-19 06:07] LABS: Albumin, Blood 2.1 g/dL (3.4-5.0); Anion Gap 1 mmol/L (6-16); Blood Urea Nitrogen 35 mg/dL (8-24); CO2, Blood 35 mmol/L (21-32); Calcium, Blood 8.3 mg/dL (8.5-10.1); Chloride, Blood 101 mmol/L (98-108); Creatinine, Blood 4.36 mg/dL (0.60-1.20); Glomerular Filtration Rate 14 (60-); Glucose, Blood 83 mg/dL (70-99); Magnesium, Blood 2.6 mg/dL (1.6-2.4); Phosphorus, Blood 4.5 mg/dL (2.5-4.9); Potassium, Blood 5.3 mmol/L (3.5-5.5); Sodium, Blood 137 mmol/L (136-145)
--- NOTE | 2018-10-19 09:00 | NUR ---
PT REFUSING TO EAT ANYTHING STATES "I WON'T EAT THAT UNTIL THEY CHANGE MY DIET TO REGULAR"; DR. LOPEZ AT BEDSIDE AND AWARE.
--- NOTE | 2018-10-19 13:58 | NUR ---
REPORTED PT'S BLOOD GLUCOSE OF [address] LOPEZ. NO NEW ORDERS RECEIVED. PT AWAKE, ALERT AND IRRITABLE.
--- NOTE | 2018-10-19 17:57 | NUR ---
PT REFUSING TO EAT. BLOOD GLUCOSE 61. DR. LOPEZ INFORMED.
--- NOTE | 2018-10-20 04:47 | NUR ---
SHIFT SUMMARY: 73 Y/O MALE RESTED COMFORTABLY ALL SHIFT AND UTILIZED BEDSIDE CALL LIGHT FOR ALL NEEDS, ALERT AND ORIENTED X 4, DENIES PAIN OR NAUSEA, LUNG SOUNDS ARE COARSE THROUGHOUT WITH NO COUGH NOTED, BED ALARM APPLIED, CALL LIGHT AT SIDE, BED LOW POSITION, LEFT GROIN OLD DRIED RED DRAINAGE REMOVED BY THIS NURSE WITH SITE WELL APPROXIMATED AND LEFT OPEN TO AIR (NO ISSUES NOTED, NO EDEMA OR S/S OF INFECTION).
[2018-10-20 05:24] LABS: Hemoglobin 9.8 g/dL (13.5-17.5)
--- NOTE | 2018-10-20 05:31 | NUR ---
PT STATED, "I HAVE PAIN BUT I WANT TWO PILLS OF THE OXYCODONE 5MG NOT ONE PILL IS CURRENTLY ORDERED I THEN DON'T GET PAIN RELIEF". PT ALSO DECLINED TO TAKE TRAMADOL 50MG. PT APPEARS TO BE COMFORTABLE AND ONLY VOICED ABOUT PAIN PILLS WHEN THIS NURSE ENTERED ROOM TO DRAW AM BLOOD FOR LAB VIA RIGHT UPPER ARM PICC LINE. THIS NURSE PROVIDED LISTENING EAR. PT VOICED HE KICKED MD OUT OF ROOM YESTERDAY DURING ROUNDING.
[2018-10-20 05:41] LABS: Albumin, Blood 2.2 g/dL (3.4-5.0); Anion Gap 5 mmol/L (6-16); Blood Urea Nitrogen 42 mg/dL (8-24); Bun/Creatinine Ratio 8.1 (12.0-20.0); CO2, Blood 32 mmol/L (21-32); Calcium, Blood 8.4 mg/dL (8.5-10.1); Chloride, Blood 101 mmol/L (98-108); Creatinine, Blood 5.19 mg/dL (0.60-1.20); Glomerular Filtration Rate 12 (60-); Glucose, Blood 90 mg/dL (70-99); Magnesium, Blood 2.8 mg/dL (1.6-2.4); Phosphorus, Blood 5.2 mg/dL (2.5-4.9); Potassium, Blood 5.6 mmol/L (3.5-5.5); Sodium, Blood 138 mmol/L (136-145)
--- NOTE | 2018-10-20 15:07 | NUR ---
SHIFT SUMMARY DIALYSIS COMPLETED TODAY. PT APPEARS IN BETTER MOOD. SMILING AND TALKATIVE DURING INTERVENTIONS. POWERGLIDE DISCONTINUED. EATING AND DRINKING WELL. PARTICIPATED IN PHYSICAL THERAPY. ABLE TO TRANSFER FROM BED TO CHAIR 1-2 PERSON ASSIST. NEW PAIN MED ORDER EFFECTIVE.
--- NOTE | 2018-10-20 15:29 | NUR ---
DISCHARGE NOTE PT DISCHARGED WITH [facility] VIA W/C TO [facility]. POWERGLIDE DISCONTINUED INTACT. 02 SATS 96% ON ROOM AIR AT TIME OF DISCHARGE. ALL BELONGINGS SENT WITH PATIENT.
--- NOTE | 2018-10-20 15:43 | NUR ---
ATTEMPTED TO CALL JAMES TO PROVIDE PATIENT REPORT TRANSFERRED TO STRUCTURAL MANAGER BUT NO ANSWER. WILL RETRY.
[2018-11-08] MEDS ORDERED: ONDA4 PO (22:36)
== END 2018-10-20 15:35 | DRG 177 ==
LOC: ER 10:21 → MEDS 13:05 → PCU 13:05 → ICUE 10-12 16:55 → PCU 10-13 18:51 → MEDS 10-18 18:44
PROVIDERS: Emergency Medicine; Internal Medicine; Internal Medicine Critical Care Medicine; Internal Medicine Nephrology; Pharmacist; ADMIT Family Medicine
PROC: 30233N1 Transfusion of Nonautologous Red Blood Cells into Peripheral Vein, Percutaneous Approach (ICD-10-PCS; 2018-10-02)
PROC: 5A1D70Z Performance of Urinary Filtration, Intermittent, Less than 6 Hours Per Day (ICD-10-PCS; principal; 2018-10-08)
PROC: 06HN33Z Insertion of Infusion Device into Left Femoral Vein, Percutaneous Approach (ICD-10-PCS; 2018-10-08)
PROC: B54CZZA Ultrasonography of Left Lower Extremity Veins, Guidance (ICD-10-PCS; 2018-10-08)
DX: J15.212 Pneumonia due to Methicillin resistant Staphylococcus aureus (principal); G93.41 Metabolic encephalopathy; N18.6 End stage renal disease; R65.10 Systemic inflammatory response syndrome (SIRS) of non-infectious origin without acute organ dysfunction; L03.115 Cellulitis of right lower limb; I50.32 Chronic diastolic (congestive) heart failure; D62 Acute posthemorrhagic anemia; I13.2 Hypertensive heart and chronic kidney disease with heart failure and with stage 5 chronic kidney disease, or end stage renal disease; D63.1 Anemia in chronic kidney disease; E03.9 Hypothyroidism, unspecified; G25.81 Restless legs syndrome; J44.9 Chronic obstructive pulmonary disease, unspecified; E87.6 Hypokalemia; E88.09 Other disorders of plasma-protein metabolism, not elsewhere classified; I48.2 Chronic atrial fibrillation; K64.9 Unspecified hemorrhoids; S81.811A Laceration without foreign body, right lower leg, initial encounter; Z99.2 Dependence on renal dialysis; E87.5 Hyperkalemia; E83.39 Other disorders of phosphorus metabolism; E16.2 Hypoglycemia, unspecified; R60.0 Localized edema; G47.00 Insomnia, unspecified; G62.9 Polyneuropathy, unspecified; N40.0 Benign prostatic hyperplasia without lower urinary tract symptoms; R00.1 Bradycardia, unspecified; E66.9 Obesity, unspecified; Z68.26 Body mass index [BMI] 26.0-26.9, adult; F17.210 Nicotine dependence, cigarettes, uncomplicated; W22.03XA Walked into furniture, initial encounter
CPT/HCPCS: 36140; 36415; 36430; 36593; 36905; 71045; 71046; 75710; 75716; 75774; 78278; 80053; 80069; 80162; 80202; 82533; 82947; 83525; 83527; 83735; 83930; 84100; 84132; 84145; 84206; 84439; 84443; 84681; 85014; 85018; 85025; 85610; 85730; 86850; 86900; 86901; 86923; 87040; 87070; 87077; 87147; 87186; 87205; 93005; 93010; 93308; 94640; 94644; 94760; 96361; 96365; 96366; 96368; 96375; 96376; 97110; 97162; 97166; 97530; 97535; 99152; 99153; 99285-25; A9560; C1725; C1751; C1757; C1760; C1769; C1773; C1887; C1894; C9113; J0282; J0360; J0456; J0610; J0696; J0834; J0881; J1160; J1644; J2250; J2405; J2543; J2997; J3010; J3370; J7030; J7040; J7042; J7050; J7060; J7070; J7799; P9016; Q9967

== ENCOUNTER 2018-11-11 08:35 | Inpatient (IN) | payer MEDICARE, OTHER ==
[~2018-11-11] VITALS: Ht 172.7 cm; Wt 92.2 kg
[~2018-11-11 08:35] MED LIST changes: +METO50 PO; +ONDA4 PO; +OXYC1TAB11 PO; +SPIRIVA RESPIMAT4 GM INH; +Synthroid/Levo0.2 MG PO
[2018-11-11 09:20] LABS: Calcium, Ionized (POC) 1.06 mmol/L (1.10-1.46); Chloride (POC) 97 mmol/L (98-108); Creatinine (POC) 6.6 mg/dL (0.8-1.3); Glucose (ISTAT POC) 115 mg/dL (70-99); Hemoglobin (POC) 10.9 g/dL (13.5-17.5); Potassium (POC) 4.8 mmol/L (3.5-5.5); Sodium (POC) 137 mmol/L (135-148); Total CO2 (POC) 33 mmol/L (21-32)
[2018-11-11 09:55] LABS: Base Excess Venous 7.7 mmol/L; Bicarbonate Venous 29.8 mmol/L (24.0-30.0); PCO2 Venous 61.5 mmHg (38-42); pH Blood Venous 7.34 (7.34-7.37)
[2018-11-11 10:14] LABS: Alanine Aminotransfer (ALT/SGP 112 U/L (12-78); Albumin, Blood 2.6 g/dL (3.4-5.0); Albumin/Globulin Ratio 0.8 (0.8-1.8); Alk Phos 91 U/L (50-136); Anion Gap 10 mmol/L (6-16); Aspartate Aminotrans (AST/SGOT 37 U/L (12-37); Bilirubin, Total 0.4 mg/dL (0.1-1.0); Blood Urea Nitrogen 64 mg/dL (8-24); CO2, Blood 31 mmol/L (21-32); Calcium, Blood 8.7 mg/dL (8.5-10.1); Chloride, Blood 100 mmol/L (98-108); Globulin, Blood 3.1 g/dL (2.2-4.0); Glomerular Filtration Rate 10 (60-); Glucose, Blood 115 mg/dL (70-99); Potassium, Blood 4.9 mmol/L (3.5-5.5); Sodium, Blood 141 mmol/L (136-145); Total Protein, Blood 5.7 g/dL (6.4-8.2); Troponin I <0.015 ng/mL (0.000-0.040)
[2018-11-11] MEDS ORDERED: OXYC1TAB11 PO (10:42)
[2018-11-11 10:48] LABS: Source, Urine Catheter
[2018-11-11 10:55] LABS: BASOPHILS ABSOLUTE AUTO 0.04 K/mm3 (0.00-0.23); BASOPHILS PERCENT AUTO 1 % (0-2); EOSINOPHILS ABSOLUTE AUTO 0.23 K/mm3 (0.00-0.68); EOSINOPHILS PERCENT AUTO 3 % (0-6); Hematocrit 40.5 % (37.0-53.0); IMMATURE GRAN ABSOLUTE AUTO 0.05 K/mm3 (0.00-0.10); IMMATURE GRAN PERCENT AUTO 1 % (0-1); LYMPHOCYTES ABSOLUTE AUTO 0.66 K/mm3 (0.84-5.20); LYMPHOCYTES PERCENT AUTO 10 % (21-46); MONOCYTES ABSOLUTE AUTO 0.49 K/mm3 (0.16-1.47); MONOCYTES PERCENT AUTO 7 % (4-13); Mean Corpuscular HGB 28.8 pg (26.0-34.0); Mean Corpuscular HGB Conc 29.6 g/dL (31.5-36.5); Mean Corpuscular Volume 97 fL (80-100); NEUTROPHILS ABSOLUTE AUTO 5.36 K/mm3 (1.96-9.15); NEUTROPHILS PERCENT AUTO 78 % (41-73); Platelet Count 72 K/mm3 (150-400); RDW Standard Deviation 63.2 fL (35.1-46.3); Red Blood Cell Count 4.16 M/mm3 (4.30-5.90); White Blood Cell Count 6.83 K/mm3 (4.00-11.30)
[2018-11-11 11:04] LABS: Blood, Urine 1+ (Neg); Glucose Qualitative, Urine Neg (Neg); Ketones, Urine Neg (Neg); Leukocyte Esterase, Urine 1+ (Neg); Nitrite, Urine Neg (Neg); Protein, Urine 2+ (Neg); Urobilinogen, Urine NORM (Normal)
[2018-11-11 11:23] LABS: Appearance, Urine Clear (Clear); Bilirubin, Urine 2+ (Neg); Color, Urine Yellow (P-Yellow)
[2018-11-11 11:24] LABS: Bacteria Few /hpf; Squamous Epithelial Cells Not Seen /hpf (Few)
[2018-11-11] MEDS ORDERED: METO50ER PO (12:50)
[2018-11-11] MEDS ORDERED: Pepto-Bism525 MG/15 PO (12:51)
[2018-11-11] MEDS ORDERED: SANTYL30 GM TOP (12:52)
--- NOTE | 2018-11-11 14:18 | NUR ---
Received Jeromy from the ED via a stretcher. He is lethargic, difficult to arouse, except to painful stimuli. Pupils are unequal, the left side 5 mm and sluggishly reactive to light, right pupil 3 mm and briskly reactive to light. Blood pressure noted low, heart rhythm afib in 125-136 range, spo2 96% on 2 l/min oxygen delivery, respirations 10-12/min, even and unlabored. He is now lying on his right side after a midline IV catheter was placed in the right upper arm and lab draws completed from it. Fistula on the LUE is noted without any bruit or thrill. Bragg catheter is draining clear yellow urine, and continaining about 100 cc in the collection bag. Dressings were applied to BLE AND LUE.
--- NOTE | 2018-11-11 17:12 | NUR ---
Lior woke up about 15 minutes ago, wide awake, stating, "I'm fine! They brought me in and my blood sugar--it's all messed up. And I don't want to have Dr. Betancourt. I refuse." He is alert, oriented, pleasantly conversant. States that he does not want to be a DNR,but wants to have chest compressions and intubation and defibrillation if needed in an emergency. Call to Dr. Meeks and order was changed. Noted in the chart there is a copy of a POLST from August 2018 which states also ATTEMPT RESUSCITATION. At this time, the pt is being taken for a revascularization of the right arm fistula. Pt states they were not able to do dialysis yesterday, but did do dialysis the day before, on Thursday.
--- NOTE | 2018-11-11 18:45 | NUR ---
Face to face report given to George Schmitt in anticipation of the pt being [facility].
--- NOTE | 2018-11-11 20:13 | NUR ---
ASSUMED PT CARE AT 1903 PT TRANSFERRED FROM POWERHOUSE HELPER S/P PERMACATH TO RIGHT UPPER CHEST SECONDARY TO CLOGGED FISTULA TO LEFT FOREARM; LAST DIALYSIS PER REPORT WAS TWO DAYS AGO. UPON ARRIVAL PT WAS VERY LETHARGIC; ABLE TO RESPOND TO VERBAL STIMULI, BUT CONFUSED TO TIME/DATE, AND PLACE. AWARE OF HIS SURROUNDINGS, BUT UNABLE TO RECALL WHAT [place] HE IS IN. PT RESTLESS IN BED STATING HE IS "COLD" TEMP 96.9 UPON ARRIVAL. WARM BLANKETS GIVEN. PT ON 6L VIA NC; UNABLE TO OBTAIN ACCURATE BIOX; HOWEVER, WHAT WAS ABLE TO READ SHOWED 93%. BLOOD PRESSURE STABLE UPON ARRIVAL. PT NOTED TO BE AFIB WITH RVR; HR 130-150'S. PT SCHEDULED TO GET DIALYSIS; IT APPEARS PT GENERALLY TAKES METOPROLOL XL FOR RATE CONTROL; HOWEVER, PT IS UNABLE TO SAFELY SWALLOW AT THIS TIME. WILL RE-EVALUATE AFTER DIALYSIS TO DETERMINE IF PT WILL STILL REQUIRE SOMETHING FOR RATE CONTROL. LUNG SOUNDS ARE NOTED TO BE COARSE WITH INSPIRATORY CRACKLES NOTED TO BILATERAL BASES. PT UNABLE TO COUGH; VERY DROWSY AND UNABLE TO FOLLOW COMMANDS AT THIS TIME. DIALYSIS NURSE STOPPED BY TO SEE PT AND COMMUNICATE THAT DIALYSIS MACHINE WAS BEING RINSED AND SHE WOULD BE DOWN WITHIN THE HOUR. AFTER PT WAS WARMED ABLE TO GET AN ACCURATE BIOX TO FOREHEAD; BIOX READING 100%; EXTREMITIES STILL COOL TO THE TOUCH, BUT CAPILLARY REFILL IS <3 SEC. SKIN OVERALL IS FRAGILE WITH MULTIPLE BRUISING AND SCABS SCATTERED. DRESSINGS NOTED TO LEFT DELONG, RIGHT KNEE, COCCYX, AND LEFT FOREARM, NEAR FISTUALA SITE. WILL OBTAIN PICTURES AFTER DIALYSIS AND PLACE IN CHART. OXYGEN DECREASED FROM 6L TO 3L VIA NC WITH OXYGEN SATURATIONS REMAINING 98%. LOPEZ CATH IS PATENT AND DRAINING TO GRAVITY. NO FAMILY AT BEDSIDE AT THIS TIME. WILL CONTINUE TO MONITOR HR AND REPORT TO MD REQUIRED; OTHERWISE, VSS AT THIS TIME.
--- NOTE | 2018-11-11 22:00 | NUR ---
PLACED CALL TO DR. SANCHEZ REGARDING PT BEING AFIB WITH RVR; PT GENERALLY TAKES METOPROLOL XL 50MG BID AND WITH DIALYSIS FOR RATE CONTROL; DID NOT RECEIVE EVENING DOSE. ALSO INFORMED DR. SANCHEZ THAT PT ISN'T ON ANY ANTICOAGULANTS AND ONLY TAKES ASA 81MG DAILY. NEW ORDERS FOR LOPRESSOR 5MG IV; IF UNEFFECTIVE GIVE DOSE OF LONG ACTING 30 MINUTES AFTER LOPRESSOR IV.
--- NOTE | 2018-11-11 22:49 | NUR ---
DR. FERNÁNDEZ AT BEDSIDE. NO NEW ORDERS.
[2018-11-12 03:47] LABS: BASOPHILS ABSOLUTE AUTO 0.02 K/mm3 (0.00-0.23); BASOPHILS PERCENT AUTO 0 % (0-2); EOSINOPHILS ABSOLUTE AUTO 0.14 K/mm3 (0.00-0.68); EOSINOPHILS PERCENT AUTO 2 % (0-6); Hematocrit 32.8 % (37.0-53.0); Hemoglobin 9.7 g/dL (13.5-17.5); IMMATURE GRAN ABSOLUTE AUTO 0.05 K/mm3 (0.00-0.10); IMMATURE GRAN PERCENT AUTO 1 % (0-1); LYMPHOCYTES ABSOLUTE AUTO 0.48 K/mm3 (0.84-5.20); LYMPHOCYTES PERCENT AUTO 7 % (21-46); MONOCYTES PERCENT AUTO 6 % (4-13); Mean Corpuscular HGB 28.5 pg (26.0-34.0); Mean Corpuscular HGB Conc 29.6 g/dL (31.5-36.5); Mean Corpuscular Volume 97 fL (80-100); NEUTROPHILS ABSOLUTE AUTO 5.77 K/mm3 (1.96-9.15); NEUTROPHILS PERCENT AUTO 84 % (41-73); Platelet Count 69 K/mm3 (150-400); RDW Coefficient Variation 18.9 % (11.7-14.2); RDW Standard Deviation 62.6 fL (35.1-46.3); White Blood Cell Count 6.86 K/mm3 (4.00-11.30)
[2018-11-12 04:04] LABS: Albumin, Blood 2.3 g/dL (3.4-5.0); Albumin/Globulin Ratio 0.8 (0.8-1.8); Bilirubin, Total 0.4 mg/dL (0.1-1.0); Calcium, Blood 7.9 mg/dL (8.5-10.1); Creatinine, Blood 4.21 mg/dL (0.60-1.20); Globulin, Blood 2.9 g/dL (2.2-4.0); Magnesium, Blood 2.2 mg/dL (1.6-2.4); Potassium, Blood 4.1 mmol/L (3.5-5.5); Total Protein, Blood 5.2 g/dL (6.4-8.2)
--- NOTE | 2018-11-12 05:36 | NUR ---
END OF SHIFT SUMMARY PT HAS REMAINED VERY DROWSY T/O SHIFT. RESPONDS TO VERBAL STIMULI; FOLLOWS COMMANDS APPROPRIATELY; HOWEVER, HE REMAINS CONFUSED TO PLACE AND TIME. DIALYSIS COMPLETED WITH A TOTAL OF 2L REMOVED. BLOOD PRESSURE HAS BEEN ON THE LOWER SIDE; HOWEVER, MAP HAS REMAINED GREATER THAN 60. PT REMAINS IN AFIB WITH RVR; HR FLUCTUATES 110-150'S; SINCE DOSES OF LOPRESSOR IV AND LOPRESSOR PO XL PT HAS BEEN MAINLY 110-130'S WITH OCCASIONAL INCREASES TO 150. LUNG SOUNDS REMAIN CLEAR TO BILATERAL UPPER LOBES AND DIMINISHED TO BILATERAL LOWER LOBES POST DIALYSIS TREATMENT. LOPEZ CATH REMAINS PATENT AND DRAINING MINIMAL AMOUNTS TO GRAVITY. UNABLE TO APPLY PAS CALF DEVICES D/T WOUNDS TO BLE'S; WILL PASS OFF TO DAY RN TO SUGGEST LOVENOX INJECTIONS INSTEAD. DR. FERNÁNDEZ BY TO SEE PT THIS MORNING; NO NEW ORDERS. HE IS AWARE OF LOWER BLOOD PRESSURES. CALL LIGHT IS WITHIN REACH; WILL CONTINUE TO MONITOR PT UNTIL REPORT IS HANDED OFF TO DAY RN.
--- NOTE | 2018-11-12 07:42 | NUR ---
UPDATED DR. MEYER ON PATIENT STATUS. INFORMED THAT PATIENT'S HR 120S TO 140S AND SBP 80S TO 90S THIS AM. MOLDING ASSOCIATE NURSE REPORTED THAT PATIENT'S HR 140S TO 150S DURING NIGHT, THAT 5 MG IV LOPRESSOR GIVEN AND WAS NOT EFFECTIVE. NURSE GAVE HOME DOSE OF LOPRESSOR XL AND WAS EFFECTIVE IN BRINGING HR DOWN TO LOW 100S TO 120S. INFORMED THAT PATIENT HAS SEVERAL BP MEDS ON EMAR AND INQUIRED ON PARAMETERS FOR GIVING MEDICATIONS. INFORMED THAT PATIENT TAKES LOPRESSOR XL BID AT HOME AND IS ORDERED FOR ONCE DAILY AT THIS TIME. INFORMED DR. MEYER THAT PATIENT IN A. FIB. INFORMED THAT PATIENT ON ASA AND NO OTHER ANTICOAGULANTS OR ANTI ARRHYTHMICS AT THIS TIME. INFORMED THAT PATIENT'S HEMOGLOBIN DROPPED FROM 12 TO 9.7 AND THAT PLATELETS ARE 69. INFORMED THAT PATIENT HAS SCDS FOR DVT PROPHYLAXIS BUT HAS WOUNDS TO LEGS. INFORMED THAT NIGHT RN REPORTED THAT PATIENT OLIGURIC AND URINE DARK CANDELARIA IN COLOR. INFORMED THAT PATIENT HAS LOPEZ AT THIS TIME AND THAT UA CAME BACK POSITIVE FOR LEUKOCYTES AND BACTERIA. ORDERS RECEIVED.
--- NOTE | 2018-11-12 08:00 | NUR ---
INITIAL ASSESSMENT PATIENT SLEEPING SOUNDLY UPON ENTERING ROOM. PATIENT WAKES TO VERBAL STIMULI, HOWEVER GOES BACK TO SLEEP AFTER ANSWERS NURSE. PATIENT HAS FLAT AFFECT. PATIENT ALERT AND ORIENTED X 4. PATIENT WEAK BUT ABLE TO MOVE ALL EXTREMITIES. PATIENT STATES HE HAS N/T IN BLES BUT THAT IT IS NORMAL FOR HIM. PATIENT AFEBRILE. PATIENT COMPLAINS OF BOTTOM BEING SORE. PATIENT REPOSITIONED AND REPORTS RELIEF. PATIENT SATTING 90% AND GREATER ON HOME DOSE OF 2 L O2 VIA NC. PATIENT HAS MOIST, NONPRODUCTIVE COUGH. EXPIRATORY WHEEZES NOTED IN RUL. KEVEN CLEAR, LOWER LOBES DIMINISHED. PATIENT IN A.FIB, HR 120S TO 140S. SBP 90S TO LOW 100S. PULSES FAINT. GI WNL- SOFT, NONTENDER, NONDISTENDED, WITH NORMOACTIVE BS. PATIENT REPORTS THAT LAST BM WAS YESTERDAY. PATIENT OLIGURIC. DIALYSIS PATIENT. JESSICA REMOVED THIS AM AND ATTENDS PLACED. URINE DARK CANDELARIA IN COLOR. SKIN FRAGILE. SCATTERED BRUISES NOTED T/O ENTIRE BODY. PATIENT HAS SCABS AND ABRASIONS SCATTERED TO BLES WITH MEPILEX DRESSINGS C/D/I. SKIN TEAR NOTED TO R NECK WITH STERI STRIPS IN PLACE. COCCYX REDDENED/ EXCORIATED- MEPILEX C/D/I. SCAR NOTED TO ABDOMEN. SCABS AND BRUISES NOTED TO BUES. PERMACATH TO R CHEST- C/D/I. LFA FISTULA CLOTTED- MEPILEX C/D/I. LOWER EXTREMITIES REDDENED, SCALY WITH 1+ EDEMA NOTED. IV FLUSHED AND SALINE LOCKED. PATIENT ASSISTED WITH BREAKFAST. BED LOW, CALL LIGHT IN REAC. WILL CONTINUE TO MONITOR PATIENT FREQUENTLY T/O SHIFT.
--- NOTE | 2018-11-12 10:24 | NUR ---
NURSE INFORMED THAT PATIENT IS USUALLY DNR STATUS WHEN HE COMES TO THE HOSPITAL. NURSE HAD CONVERSATION WITH PATIENT THIS AM DISCUSSING CODE STATUS AND PATIENT STATES THAT HE WANTS TO BE FULL CODE AND HAVE EVERYTHING DONE FOR HIM TO TRY AND SAVE HIS LIFE IF THE SITUATION ARISES. PATIENT IS ALERT AND ORIENTED X 4 AT THIS TIME.
--- NOTE | 2018-11-12 11:12 | NUR ---
PHYSICAL THERAPY IN TO SEE PATIENT AT THIS TIME.
--- NOTE | 2018-11-12 11:54 | NUR ---
PATIENT REMAINS LETHARGIC- RESPONDING TO VERBAL STIMULI BUT THEN GOING BACK TO SLEEP AFTER ANSWERING NURSES QUESTIONS. FLAT AFFECT, CALM AND COOPERATIVE. PATIENT REMAINED AFEBRILE. PATIENT REPOSITIONED FOR COMPLAINTS OF BOTTOM BEING SORE. PATIENT REMAINED SATTING 90% AND GREATER ON 1-2 L NC. PATIENT CURRENTLY ON 1 L NC. PATIENT CONTINUES TO HAVE MOIST, NONPRODUCTIVE COUGH. PATIENT REMAINED IN A.FIB, HR 120S TO 150S. SBP 80S TO 120S. PATIENT DID NOT HAVE BM THIS SHIFT. PATIENT ATE EGGS FROM BREAKFAST TRAY THIS AM. TOLERATING SOFT DIET WELL THUS FAR. PATIENT DOES NOT HAVE DENTURES HERE AT HOSPITAL. LOPEZ REMOVED THIS AM. URINE DARK CANDELARIA IN COLOR. ATTENDS IN PLACE- CLEAN AND DRY. PATIENT REPOSITIONED Q2H. IV S.Moy. PT WORKED WITH PATIENT. BED LOW, CALL LIGHT IN REACH. NO COMPLAINTS AT THIS TIME. REPORT GIVEN TO ASSUMING MEDICAL FLOOR NURSE. PATIENT WILL BE TRANSFERRING TO ROOM 303.
--- NOTE | 2018-11-12 12:18 | NUR ---
DR. MEYER CALLED AND NOTIFIED THAT PATIENT HR CONTINUES IN THE 120S TO 140S DESPITE SCHEDULED LOPRESSOR XL GIVEN IN AM. BP CURRENTLY 100/80. ALSO INFORMED THAT DIALYSIS NURSE CONCERNED THAT MEDS TO LOWER HR ARE DECREASING PATIENT'S BP SO MUCH THAT THIS IS THE REASON THAT THE FISTULA CLOTTED. ASKED WHAT THE DOCTOR WOULD LIKE TO DO ABOUT THE CONTINUED LOWER BP AND THE HIGH HR. NO ORDERS RECEIVED AT THIS TIME. INFORMED TO CONTINUE MONITORING AT THIS TIME. PATIENT BEING TAKEN TO MEDICAL FLOOR BY BRAZING MACHINE SETTER NOW. ASSUMING MED FLOOR NURSE INFORMED OF THIS DISCUSSION WITH DR. MEYER.
--- NOTE | 2018-11-12 19:03 | NUR ---
SHIFT SUMMARY PATIENT TRANSFER FROM ICU. NO ACUTE CONCERNS AT THIS TIME. PATIENT VERY LETHARGIC. NO COMPLAINTS OF PAIN OR OTHER ISSUES. PATIENT IS INCONTINENT BUT TELLS AMARA MEHTA HE HAS GONE.
--- NOTE | 2018-11-13 04:20 | NUR ---
SHIFT SUMMARY: 73 Y/O MALE HAD RESTLESS NIGHT THIS SHIFT WITH PATIENT ASKING NUMEROUS TIMES WHEN HE COULD DEPART BACK TO [facility], THIS NURSE PROVIDED LISTENING EAR, PT DENIES PAIN OR NAUSEA, ALERT AND ORIENTED X 2, REDIRECTED FREQUENTLY BY NURSING STAFF, CONTACT PRECAUTIONS MAINTAINED FOR MRSA, TELEMETRY REFLECTS A/FIB WITH HEART RATE 110-130 AT TIMES, LUNG SOUNDS ARE DIMINISHED THROUGHOUT WITH OCCASIONAL HARSH NON PRODUCTIVE COUGH, BED LOW POSITION, CALL LIGHT AT SIDE.
[2018-11-13 05:52] LABS: BASOPHILS ABSOLUTE AUTO 0.03 K/mm3 (0.00-0.23); BASOPHILS PERCENT AUTO 0 % (0-2); EOSINOPHILS ABSOLUTE AUTO 0.16 K/mm3 (0.00-0.68); EOSINOPHILS PERCENT AUTO 2 % (0-6); Hematocrit 37.7 % (37.0-53.0); Hemoglobin 11.2 g/dL (13.5-17.5); IMMATURE GRAN ABSOLUTE AUTO 0.06 K/mm3 (0.00-0.10); IMMATURE GRAN PERCENT AUTO 1 % (0-1); LYMPHOCYTES ABSOLUTE AUTO 0.53 K/mm3 (0.84-5.20); LYMPHOCYTES PERCENT AUTO 7 % (21-46); MONOCYTES ABSOLUTE AUTO 0.49 K/mm3 (0.16-1.47); MONOCYTES PERCENT AUTO 7 % (4-13); Mean Corpuscular HGB Conc 29.7 g/dL (31.5-36.5); NEUTROPHILS ABSOLUTE AUTO 5.85 K/mm3 (1.96-9.15); NEUTROPHILS PERCENT AUTO 82 % (41-73); Platelet Count 78 K/mm3 (150-400); RDW Coefficient Variation 19.2 % (11.7-14.2); RDW Standard Deviation 62.4 fL (35.1-46.3); White Blood Cell Count 7.12 K/mm3 (4.00-11.30)
[2018-11-13 05:59] LABS: Mean Corpuscular Volume 94 fL (80-100)
[2018-11-13 06:17] LABS: Magnesium, Blood 2.4 mg/dL (1.6-2.4)
[2018-11-13 06:18] LABS: Albumin, Blood 2.5 g/dL (3.4-5.0); Albumin/Globulin Ratio 0.7 (0.8-1.8); Bilirubin, Total 0.4 mg/dL (0.1-1.0); Bun/Creatinine Ratio 9.2 (12.0-20.0); Calcium, Blood 8.5 mg/dL (8.5-10.1); Creatinine, Blood 5.1 mg/dL (0.60-1.20); Globulin, Blood 3.4 g/dL (2.2-4.0); Phosphorus, Blood 4.1 mg/dL (2.5-4.9); Potassium, Blood 4.6 mmol/L (3.5-5.5); Total Protein, Blood 5.9 g/dL (6.4-8.2)
--- NOTE | 2018-11-13 18:13 | NUR ---
SHIFT SUMMARY PATIENT IS PLEASANT ALTHOUGH HE DOES NOT USE HIS CALL LIGHT. HE WILL CALL OUT ALL DAY. I HAVE SPOKEN WITH HIM, AND HE IS FEELING LONELY AND DRAINED. AT THIS TIME THE PATIENT IS ALERT AND ORIENTED, BUT DOES NOTE THAT HIS "FEELINGS ARE GETTING THE BEST OF" HIM. HE IS WORRIED THAT HE WON'T BE ABLE TO FUNCTION OUT OF THE HOSPITAL. I FEEL THAT HE NEEDS TO BE SEEN BY PALLIATIVE CARE AND MAYBE A VOLUNTEER TO HAVE SOMEONE TO TALK TO THROUGHOUT THE NIGHT.
--- NOTE | 2018-11-13 20:05 | NUR ---
Late entry 11/12/18 5135 Call placed to Hospitalist [facility] about pt heart rate continuing to run 140's up to 150's. Pt vital signs otherwise stable. Pt denies symptoms or distress. Hospitalist noted in chart pt meds had been changed and pt had just recieved Metoprolol 50mg. Will continue to monitor. Pt nurse notified.
--- NOTE | 2018-11-14 05:02 | NUR ---
SHIFT SUMMARY: 73 Y/O MALE RESTED COMFORTABLY IN BED ALL SHIFT, DENIES PAIN (DECLINED TO TAKE TRAMADOL WHEN OFFERED) OR NAUSEA; HAPPY AND COOPERATIVE, TENDS NOT UTILIZE NURSING CALL LIGHT AND INSTEAD YELLS OUT FOR "NURSE" FREQUENTLY, TELEMETRY REFLECTS A/FIB WITH HEART RATE 130-140s, BED LOW POSITION, CALL LIGHT AT SIDE.
[2018-11-14 05:06] LABS: BASOPHILS ABSOLUTE AUTO 0.05 K/mm3 (0.00-0.23); BASOPHILS PERCENT AUTO 1 % (0-2); EOSINOPHILS ABSOLUTE AUTO 0.16 K/mm3 (0.00-0.68); EOSINOPHILS PERCENT AUTO 3 % (0-6); Hematocrit 39.2 % (37.0-53.0); Hemoglobin 11.5 g/dL (13.5-17.5); IMMATURE GRAN ABSOLUTE AUTO 0.04 K/mm3 (0.00-0.10); IMMATURE GRAN PERCENT AUTO 1 % (0-1); LYMPHOCYTES ABSOLUTE AUTO 0.63 K/mm3 (0.84-5.20); LYMPHOCYTES PERCENT AUTO 10 % (21-46); MONOCYTES ABSOLUTE AUTO 0.55 K/mm3 (0.16-1.47); MONOCYTES PERCENT AUTO 9 % (4-13); Mean Corpuscular HGB 27.9 pg (26.0-34.0); Mean Corpuscular HGB Conc 29.3 g/dL (31.5-36.5); Mean Corpuscular Volume 95 fL (80-100); NEUTROPHILS ABSOLUTE AUTO 4.93 K/mm3 (1.96-9.15); NEUTROPHILS PERCENT AUTO 78 % (41-73); Platelet Count 74 K/mm3 (150-400); RDW Coefficient Variation 19.3 % (11.7-14.2); RDW Standard Deviation 65.8 fL (35.1-46.3); Red Blood Cell Count 4.12 M/mm3 (4.30-5.90); White Blood Cell Count 6.36 K/mm3 (4.00-11.30)
[2018-11-14 05:27] LABS: Albumin, Blood 2.6 g/dL (3.4-5.0); Anion Gap 8 mmol/L (6-16); Blood Urea Nitrogen 39 mg/dL (8-24); Bun/Creatinine Ratio 8.9 (12.0-20.0); CO2, Blood 31 mmol/L (21-32); Calcium, Blood 8.5 mg/dL (8.5-10.1); Chloride, Blood 100 mmol/L (98-108); Creatinine, Blood 4.36 mg/dL (0.60-1.20); Glomerular Filtration Rate 14 (60-); Glucose, Blood 83 mg/dL (70-99); Phosphorus, Blood 3.3 mg/dL (2.5-4.9); Potassium, Blood 4.5 mmol/L (3.5-5.5); Sodium, Blood 139 mmol/L (136-145)
--- NOTE | 2018-11-14 06:50 | NUR ---
PT YELLING OUT LOUDLY THAT HE NEEDS A CIGARETTE AND REFUSING TO TAKE NICOTINE PATCH IF NEEDED (THIS NURSE WILL CALL MD FOR ORDER IF PATIENT IS RECEPTABLE TO THIS IDEA WHICH PATIENT DECLINED).
--- NOTE | 2018-11-14 18:42 | NUR ---
Pt visit this afternoon. Spoke with bedside nurse Marleny prior to visit and discussed case. Pt is A&Ox4 and appears agitated. Listened as Pt expresses frustration regarding not being able to go outside and smoke a cigarette. Pt focuses much of the visit towards smoking. Agitation appears to be due to nicotine withdrawel. Offered to discuss nicotine patch with hospitalist and Pt denies need and states "all I want is to smoke a cigarette". Offered something for anxiety and Pt also denies need. Attempted to distract Pt by discussing other topics and Pt redirects back towards smoking. Inquired if he is still living at [place] and he reports paper work has been signed for him to move into [facility]. Inquired about dialysis treatments and Pt states "they are going well". Pt still redirects towards smoking but by end of visit Pt is slightly calmer. Offered to F/U for therapeutic visit at a later time and Pt is agreeable. Spoke with bedside nurse Marleny and she reports plan if for Pt to transfer to PCU due to uncontrolled heart rate and Afib. Palliative Care will remain available.
--- NOTE | 2018-11-14 19:45 | NUR ---
SHIFT SUMMARY PATIENT IS AGITATED TODAY. HE WANTS T GO OUTSIDE AND SMOKE. CURRENLTY HIS HEART RATE IS HIGH AND HIS BLOOD PRESSURE WAS HOLDING THIS MORNING. THERE WAS A LARGE CHANGE IN HIS MEDS THIS MORNING AND HIS BLOOD PRESSURE DID DROP TO 75/51 WHILE HIS PULSE WAS STILL HIGH. THIS WAS A CHANGE IN THE PATIENT WELL HIS MENTATION HAD STARTED TO CHANGE. THE PATIENT HAS BEEN VERY CONFUSED THROUGHOUT THE DAY. HE WAS UPSET AND WOULD NOT LET ME IN THE ROOM. DR. MUNGUIA ORDERED A ONE TIME DOSE OF DIGOXIN FOR THE PATIENT TO SEE IF WE COULD BRING HIS HEART RATE DOWN. THIS WAS HANDED OFF TO THE PCU NURSE THE PATIENT HAD GOTTEN MORE AGITATED.
--- NOTE | 2018-11-15 01:00 | NUR ---
PT AGITATION/PILLS PT FOUND TO BE ATTEMPTING SELF-AMBULATION AND GROWING VERY IRRITABLE WITH RN, BETO, WHO WAS ATTEMPTING TO ASSIST PATIENT FOR SAFETY. PT TELLING NURSE TO "GET OUT OF THE ROOM AND LEAVE HIM ALONE". PT WAS ALSO ATTEMPTING TO PUSH AND HIT OTHER NURSE. PT ASSISTED TO THE SIDE OF THE BED AND EDUCATED ON APPROPRIATE BEHAVIOR TOWARDS STAFF MEMBERS. INFORMED THAT PHYSICAL AGRESSION WOULD NOT BE TOLERATED. PT VERBALIZES THAT HE UNDERSTANDS, BUT WOULD LIKE TO SIT ON THE EDGE OF THE BED. PT ASSISTED TO SIDE OF BED WHILE THIS RN REMAINED AT BEDSIDE DUE TO WEAKNESS. PILLS FOUND UNDER BURROWS PAD. FOUR PHOS LO CAPS FOUND AND ONE CARDIZEM CAPSULE FOUND IN PATIENT BED. PT REPORTS THAT "HE DID NOT KNOW THEY WERE THERE". PILLS SHOWN TO HOME STAGING SPECIALIST AND WASTED OF APPROPRIATELY PER FACILITY PROTOCOL. PT THEN ASSISTED BACK TO BED AND REPOSITIONED. PT IS BEING COOPERATIVE AT THIS TIME. BED ALARM SET AND CALL LIGHT PLACED IN REACH.
[2018-11-15 04:08] LABS: BASOPHILS ABSOLUTE AUTO 0.05 K/mm3 (0.00-0.23); BASOPHILS PERCENT AUTO 1 % (0-2); EOSINOPHILS ABSOLUTE AUTO 0.29 K/mm3 (0.00-0.68); EOSINOPHILS PERCENT AUTO 4 % (0-6); Hematocrit 41.1 % (37.0-53.0); Hemoglobin 12.1 g/dL (13.5-17.5); IMMATURE GRAN ABSOLUTE AUTO 0.03 K/mm3 (0.00-0.10); IMMATURE GRAN PERCENT AUTO 0 % (0-1); LYMPHOCYTES ABSOLUTE AUTO 0.67 K/mm3 (0.84-5.20); LYMPHOCYTES PERCENT AUTO 10 % (21-46); MONOCYTES PERCENT AUTO 7 % (4-13); Mean Corpuscular HGB 27.9 pg (26.0-34.0); Mean Corpuscular HGB Conc 29.4 g/dL (31.5-36.5); Mean Corpuscular Volume 95 fL (80-100); NEUTROPHILS ABSOLUTE AUTO 5.53 K/mm3 (1.96-9.15); NEUTROPHILS PERCENT AUTO 78 % (41-73); Platelet Count 82 K/mm3 (150-400); RDW Coefficient Variation 18.8 % (11.7-14.2); RDW Standard Deviation 64.2 fL (35.1-46.3); Red Blood Cell Count 4.34 M/mm3 (4.30-5.90); White Blood Cell Count 7.07 K/mm3 (4.00-11.30)
[2018-11-15 04:31] LABS: Albumin, Blood 2.6 g/dL (3.4-5.0); Anion Gap 8 mmol/L (6-16); Blood Urea Nitrogen 49 mg/dL (8-24); Bun/Creatinine Ratio 9.5 (12.0-20.0); CO2, Blood 30 mmol/L (21-32); Calcium, Blood 8.6 mg/dL (8.5-10.1); Chloride, Blood 101 mmol/L (98-108); Creatinine, Blood 5.18 mg/dL (0.60-1.20); Glomerular Filtration Rate 12 (60-); Glucose, Blood 86 mg/dL (70-99); Magnesium, Blood 2.4 mg/dL (1.6-2.4); Phosphorus, Blood 4.2 mg/dL (2.5-4.9); Potassium, Blood 4.7 mmol/L (3.5-5.5); Sodium, Blood 139 mmol/L (136-145)
--- NOTE | 2018-11-15 06:14 | NUR ---
SHIFT SUMMARY PT HAS REMAINED AOX4 THROUGHOUT SHIFT. VSS. MOSTLY COOPERATIVE WITH CARE. PT CONTINUES TO HAVE PERIODS OF AGITATION WITH STAFF, CONTINUOUSLY STATING THAT HE WANTS TO GO OUTSIDE AND SMOKE OR WANTS TO GO HOME. PT EDUCATED ON CURRENT CONDITION AND ADVISED AGAINST TOBACCO USE AT THIS TIME, OFFERED NICOTINE PATCH WHICH WAS REFUSE BY PT. PT INFORMED OF RIGHTS AND RESPONSIBILITIES. CARDIAC RHYTHM REMAINS IN ATRIAL FIBRILLATION WITH A RATE AVERAGING IN THE 120-130s PER TELEMETRY. HEART RATE AVERAGES IN THE 110s WHILE PT IS SLEEPING. NO OTHER CHANGES NOTED FROM INITIAL ASSESSMENT. WILL CONTINUE TO MONITOR AND REPORT TO ONCOMING SHIFT RN. BED IN LOW POSITION. CALL LIGHT IN REACH. BED ALARM SET FOR SAFETY.
--- NOTE | 2018-11-15 15:26 | NUR ---
DISCHARGE NOTE PT STABLE FOR DISCHARGE TO [facility]. REPORT CALLED TO JAMILA TIERNEY RN. PT DISCHARGED VIA STRETCHER TO [facility] WITH BELONGINGS.
== END 2018-11-15 15:25 | DRG 314 ==
LOC: ER 08:35 → PCU 12:18 → MEDS 12:18 → PCU 13:45 → ICUW 18:31 → MEDS 11-12 12:20 → PCU 11-14 19:05
PROVIDERS: Internal Medicine Nephrology; Physician Assistant; ADMIT Internal Medicine
PROC: 03WYX3Z Revision of Infusion Device in Upper Artery, External Approach (ICD-10-PCS; principal; 2018-11-11)
PROC: 5A1D70Z Performance of Urinary Filtration, Intermittent, Less than 6 Hours Per Day (ICD-10-PCS; 2018-11-11)
PROC: 5A1D70Z Performance of Urinary Filtration, Intermittent, Less than 6 Hours Per Day (ICD-10-PCS; 2018-11-13)
DX: T82.898A Other specified complication of vascular prosthetic devices, implants and grafts, initial encounter (principal); N18.6 End stage renal disease; G93.41 Metabolic encephalopathy; I12.0 Hypertensive chronic kidney disease with stage 5 chronic kidney disease or end stage renal disease; K76.6 Portal hypertension; I13.2 Hypertensive heart and chronic kidney disease with heart failure and with stage 5 chronic kidney disease, or end stage renal disease; I50.32 Chronic diastolic (congestive) heart failure; L97.929 Non-pressure chronic ulcer of unspecified part of left lower leg with unspecified severity; L97.919 Non-pressure chronic ulcer of unspecified part of right lower leg with unspecified severity; N25.81 Secondary hyperparathyroidism of renal origin; I48.2 Chronic atrial fibrillation; Z79.01 Long term (current) use of anticoagulants; Z99.2 Dependence on renal dialysis; K74.60 Unspecified cirrhosis of liver; M10.9 Gout, unspecified; J44.9 Chronic obstructive pulmonary disease, unspecified; F17.210 Nicotine dependence, cigarettes, uncomplicated; Z86.73 Personal history of transient ischemic attack (TIA), and cerebral infarction without residual deficits; D63.1 Anemia in chronic kidney disease; D69.6 Thrombocytopenia, unspecified; E83.39 Other disorders of phosphorus metabolism; G25.81 Restless legs syndrome; Z98.84 Bariatric surgery status; N40.0 Benign prostatic hyperplasia without lower urinary tract symptoms
CPT/HCPCS: 36415; 36558; 36561; 71045; 76937; 80047; 80053; 80069; 81001; 82140; 82803; 82947; 83605; 83735; 83880; 84100; 84443; 84484; 85014; 85025; 87086; 93005; 93010; 94640; 94760; 96361; 96374; 96376; 97162; 97165; 97530; 99152; 99153; 99285-25; C1750; C1751; C1769; C1887; J0881; J1160; J1644; J2250; J2310; J3010; J7030; J7040; Q9967

== ENCOUNTER 2018-11-18 15:23 | Inpatient (IN) | payer MEDICARE, OTHER ==
[~2018-11-18] VITALS: Ht 165.1 cm; Wt 82.8 kg
[~2018-11-18 15:23] MED LIST changes: +SANTYL30 GM TOP
[2018-11-18 17:40] LABS: Albumin, Blood 2.9 g/dL (3.4-5.0); Anion Gap 8 mmol/L (6-16); Blood Urea Nitrogen 17 mg/dL (8-24); Bun/Creatinine Ratio 6.9 (12.0-20.0); CO2, Blood 35 mmol/L (21-32); Calcium, Blood 8.4 mg/dL (8.5-10.1); Chloride, Blood 98 mmol/L (98-108); Creatinine, Blood 2.46 mg/dL (0.60-1.20); Glomerular Filtration Rate 28 (60-); Glucose, Blood 63 mg/dL (70-99); Phosphorus, Blood 2.3 mg/dL (2.5-4.9); Sodium, Blood 141 mmol/L (136-145)
[2018-11-18 17:56] LABS: Potassium, Blood 3.7 mmol/L (3.5-5.5)
--- NOTE | 2018-11-18 21:21 | NUR ---
CALLED DR. FERNÁNDEZ TO REPORT MAGNESIUM LEVEL OF 2.1 AND BGL OF 59. TAKEN ORDER TO CHANGE FLUIDS FROM NS TO D5NS @ 50ML/HR. NO FURTHER ORDERS TAKEN.
--- NOTE | 2018-11-18 21:26 | NUR ---
PATIENT REFUSING TO ALLOW WOUND PHOTOS AT THIS TIME. ABLE TO CHANGE DRESSING TO RIGHT LEG, PT DID NOT TOLERATE WELL AND WOULD NOT HOLD LEG STILL. STATING HE DID NOT LIKE HIS LEG MESSED WITH. WOUND HAS FOUL ODOR AND WHITE SLOUGHING NOTED. CLEANED WITH NS PLACED SANTYL, 2X2 AND TAPE.
[2018-11-18 22:37] LABS: Hemoglobin 11.3 g/dL (13.5-17.5)
--- NOTE | 2018-11-18 23:34 | NUR ---
PATIENT EATING SNACKS AND NOT WANTING TO BE HERE. PATIENT IS IRRITATED WITH PATIENT CARE ITEMS THAT NEED TO BE DONE (VITALS, BLOOD WORK, ETC).
[2018-11-19 03:52] LABS: BASOPHILS ABSOLUTE AUTO 0.04 K/mm3 (0.00-0.23); BASOPHILS PERCENT AUTO 1 % (0-2); EOSINOPHILS ABSOLUTE AUTO 0.09 K/mm3 (0.00-0.68); EOSINOPHILS PERCENT AUTO 1 % (0-6); Hematocrit 36.9 % (37.0-53.0); IMMATURE GRAN ABSOLUTE AUTO 0.05 K/mm3 (0.00-0.10); IMMATURE GRAN PERCENT AUTO 1 % (0-1); LYMPHOCYTES ABSOLUTE AUTO 0.44 K/mm3 (0.84-5.20); LYMPHOCYTES PERCENT AUTO 6 % (21-46); MONOCYTES ABSOLUTE AUTO 0.46 K/mm3 (0.16-1.47); MONOCYTES PERCENT AUTO 7 % (4-13); Mean Corpuscular HGB 27.6 pg (26.0-34.0); Mean Corpuscular HGB Conc 29.8 g/dL (31.5-36.5); Mean Corpuscular Volume 93 fL (80-100); NEUTROPHILS ABSOLUTE AUTO 5.96 K/mm3 (1.96-9.15); NEUTROPHILS PERCENT AUTO 85 % (41-73); Platelet Count 113 K/mm3 (150-400); RDW Coefficient Variation 18.1 % (11.7-14.2); RDW Standard Deviation 61.1 fL (35.1-46.3); Red Blood Cell Count 3.98 M/mm3 (4.30-5.90); White Blood Cell Count 7.04 K/mm3 (4.00-11.30)
[2018-11-19 04:09] LABS: Albumin, Blood 2.5 g/dL (3.4-5.0); Albumin/Globulin Ratio 0.8 (0.8-1.8); Bilirubin, Total 0.4 mg/dL (0.1-1.0); Bun/Creatinine Ratio 7.6 (12.0-20.0); Calcium, Blood 8.1 mg/dL (8.5-10.1); Creatinine, Blood 3.14 mg/dL (0.60-1.20); Globulin, Blood 3.1 g/dL (2.2-4.0); Potassium, Blood 4.3 mmol/L (3.5-5.5); Total Protein, Blood 5.6 g/dL (6.4-8.2); Troponin I 0.034 ng/mL (0.000-0.040)
--- NOTE | 2018-11-19 05:23 | NUR ---
PATIENT NOT WANTING CARE OR TO BE IN THE HOSPITAL. REFUSING TO GET PHOTOS OF WOUNDS AND CARE AT TIMES. PATIENT ANGRY ABOUT GETTING VITALS AND BEING WOKEN. PATIENT RECIEVING SNACKS WHEN AWAKE. PATIENT CONTINUES ON DILTIAZEM @ 15MG/HR FOR HR IN 120'S. PATIENT LEGS RESTLESS DURING THE NIGHT. PATIENT MOVING AROUND IN BED INDEPENDENTLY. CONTINUING TO MONITOR VITALS CLOSELY.
--- NOTE | 2018-11-19 13:39 | NUR ---
ECHOCARDIOGRAM COMPLETED
--- NOTE | 2018-11-19 18:25 | NUR ---
SHIFT SUMMARY PT RESTING IN BED THROUGHOUT THE DAY. VSS EXCEPT AFIB WITH RATE 110s-140s. TRANSITIONED TO PO CARDIZEM THIS EVENING, TITRATED OFF OF CARDIZEM GTT. ALERT AND ORIENTED X3, VERY LETHARGIC TODAY, BUT WAKES EASILY TO VERBAL STIMULI. DECLINES FOOD THROGHOUT THE DAY. LUNG SOUNDS CLEAR, DIMINISHED LEFT BASE, AND CRACKLES TO RIGHT BASE. SCABS SCATTERED TO EXTREMITIES, BANDAGES CDI. WILL CONTINUE TO MONITOR.
--- NOTE | 2018-11-19 18:50 | NUR ---
pt slept most of day review of patient with bedside nurse and hemodialysis nurse. tolerance of dialyis has been poor. will contact the decision maker on his AD and see if social welfare administrator at [facility] with [facility].
--- NOTE | 2018-11-19 19:41 | NUR ---
PATIENT HR IN 140'S, BP STABLE. CALLED DR. MUNGUIA TO SEE IF HE WOULD LIKE TO RESUME DILTIAZEM DRIP THAT WAS DISCONTINUED AT 1830 DUE TO STEADY INCREASE IN HEART RATE. DOCTOR DECLINE AND ORDERED 30MG OF PO DILTIAZEM NOW AND CHANGE DILTIAZEM ORDER TO 60MG PO Q6H. ALSO GIVEN METOPROLOL THAT IS DUE AT 2100 NOW. NO FURTHER ORDERS.
--- NOTE | 2018-11-19 21:26 | NUR ---
PATIENT YELLING OUT THAT HE WANTS A HOT MEAL. STATES WE ARE ALL LIYING AND HE WAS NEVER OFFERED A MEAL TODAY. PATIENT STATING THAT WE JUST NEED TO GET THE HELL OUT. PATIENT THEN YELLED INSTEAD OF USING CALL LIGHT THAT IS RIGHT BY HIS HEAD THAT HE WANTED PUDDING. PATIENT INSTRUCTED TO USE CALL LIGHT AND TO REFRAME FROM YELLING OUT AND YELLING AT STAFF.
--- NOTE | 2018-11-19 22:05 | NUR ---
PATIENT HEART RATE CONTINUES TO TREND UPWARD WITH HEART RATE 140'S-150'S. CALLED DR. MUNGUIA TO ORDERED TO RESUME DILTIAZEM DRIP AND CHANGE STATUS TO PCU.
--- NOTE | 2018-11-20 02:17 | NUR ---
PATIENT SET OFF BED ALARM STATING HE IS GOING TO GET UP AND WALK OUT TO SMOKE A CIGARETTE AND HE WILL CRAWL IF HE CAN'T WALK. PATIENT IS YELLING AND TRYING TO HIT STAFF STATING HE HAS ALREADY GONE OUT TO SMOKE ONCE TONIGHT AND WE CAN NOT STOP HIM. PATIENT STATES HE WANT SECURITY, ONCE SECURITY WAS IN ROOM AND ALSO ENFORCING HE NEEDED TO STAY IN THE BED FOR HIS SAFETY AND HIS HEALTH. PATIENT YELLING THAT THE DOCTOR NEEDED TO BE CALLED. PATIENT PLACED HIS LEGS BACK IN BED AND STARTED TO CLOSE EYES. PATIENT STARTED TO FALL ASLEEP BETWEEN YELLING AT STAFF. PLACE ALL FOUR BED RAIL UP AND BED ALARM ON, LIGHTS OUT AND STOOD IN DOOR TO DEESCALATE SITUATION. PATIENT APPEARS TO HAVE DIRFTED OFF TO SLEEP FOR NOW.
--- NOTE | 2018-11-20 02:41 | NUR ---
PATIENT HAS WHAT APPEARS TO BE NEAR SKIN TEAR ON RIGHT UPPER THIGH FROM RUBBING ON THE RAIL ATTEMPTING TO GET OUT OF BED. PATIENT NOT ALLOWING STAFF TO CLEAN OF PUT ANY HANDS ON HIM AT THIS TIME.
--- NOTE | 2018-11-20 02:48 | NUR ---
PATIENT HAD A 3.06 SECOND PAUSE. HEART RATE CONTINUES IN THE 120'S. DILTIAZEM DRIP CONTINUES AT 10MG/HR. DR. HOGAN NOTIFIED. CONTINUE TO MONITOR NO ORDERS AT THIS TIME.
--- NOTE | 2018-11-20 04:17 | NUR ---
PATIENT TOSSING AND TURN IN BED AND NOT WANTING TO BE TOUCHED. PATIENT HAS PULLED ON IV. IV DRESSING IS LOOSE. ABLE TO PUT A PIECE OF TAPE ON IT BEFORE PATIENT DEMAND I NOT TOUCH HIM.
--- NOTE | 2018-11-20 05:00 | NUR ---
PATIENT YELLING OUT. UPON ENTERING ROOM PATIENT WAS LAYING WTH FEET HANGING OFF THE CORNER OF THE BOTTOM OF THE BED HOLDING THE IV POLE. PATIENT STATES HE WANTS ALL THIS STUFF OFF HIM. NO APPARENT INJURY. PATIENT DENIES ANY PAIN. BED ALARM WAS ON AND DID NOT ALARM. PATIENT ASSISTED UP IN BED WITH TWO ASSIST. PATIENT YELLING HE DOESN'T WANT BLANKETS, THEN WHEN TAKEN OFF HE STATES HE WANTS ONE. PATIENT STATES HE IS IN THE HOSPITAL, BUT ALSO STATES HE JUST WENT OUT FOR A SMOKE. WHEN EXPLAINED HE HAS NOT LEFT THE BED. PATIENT STATES "YOU DON'T KNOW WHAT THE FUCK YOU ARE TALKING ABOUT". PATIENT CONTINUES TO BE VERBALLY AGGRESSIVE. CONTINUES ON DILTIAZEM DRIP AT 10MG/HR WITH HR IN THE 120'S. BP STABLE.
--- NOTE | 2018-11-20 06:09 | NUR ---
PATIENT REFUSES BLOOD DRAW. YELLING OUT. STATES HIS BLANKET HAS ARMS AND LEGS.
--- NOTE | 2018-11-20 06:48 | NUR ---
PATIENT PULLED IV OUT. NO IV ACCESS AT THIS TIME. DILTIAZEM AND D5NS PAUSED AT THIS TIME.
[2018-11-20] MEDS ORDERED: DILT30 PO (09:24)
[2018-11-20 10:10] LABS: BASOPHILS ABSOLUTE AUTO 0.02 K/mm3 (0.00-0.23); BASOPHILS PERCENT AUTO 0 % (0-2); EOSINOPHILS ABSOLUTE AUTO 0.06 K/mm3 (0.00-0.68); EOSINOPHILS PERCENT AUTO 1 % (0-6); Hematocrit 35.7 % (37.0-53.0); Hemoglobin 10.5 g/dL (13.5-17.5); IMMATURE GRAN ABSOLUTE AUTO 0.04 K/mm3 (0.00-0.10); IMMATURE GRAN PERCENT AUTO 1 % (0-1); LYMPHOCYTES ABSOLUTE AUTO 0.32 K/mm3 (0.84-5.20); LYMPHOCYTES PERCENT AUTO 5 % (21-46); MONOCYTES PERCENT AUTO 6 % (4-13); Mean Corpuscular HGB Conc 29.4 g/dL (31.5-36.5); Mean Corpuscular Volume 92 fL (80-100); NEUTROPHILS ABSOLUTE AUTO 6.28 K/mm3 (1.96-9.15); NEUTROPHILS PERCENT AUTO 88 % (41-73); Platelet Count 111 K/mm3 (150-400); RDW Coefficient Variation 18.2 % (11.7-14.2); RDW Standard Deviation 60.5 fL (35.1-46.3); Red Blood Cell Count 3.89 M/mm3 (4.30-5.90); White Blood Cell Count 7.12 K/mm3 (4.00-11.30)
[2018-11-20 10:12] LABS: Mean Platelet Volume 13.3 fL (9.1-12.4)
[2018-11-20 10:37] LABS: Albumin, Blood 2.3 g/dL (3.4-5.0); Anion Gap 5 mmol/L (6-16); Blood Urea Nitrogen 28 mg/dL (8-24); Bun/Creatinine Ratio 7.3 (12.0-20.0); CO2, Blood 33 mmol/L (21-32); Calcium, Blood 8.1 mg/dL (8.5-10.1); Chloride, Blood 104 mmol/L (98-108); Creatinine, Blood 3.84 mg/dL (0.60-1.20); Glomerular Filtration Rate 17 (60-); Glucose, Blood 108 mg/dL (70-99); Phosphorus, Blood 3.7 mg/dL (2.5-4.9); Potassium, Blood 3.9 mmol/L (3.5-5.5); Sodium, Blood 142 mmol/L (136-145)
--- NOTE | 2018-11-20 15:13 | NUR ---
ASSUMED CARE AND COMFORT OF THIS PATIENT AT 0715 THIS AM. PT WAS PULLING AT LINES AND CORDS. YELLING "FUCK YOU" AND "FUCK OFF" TO STAFF. STRIKING OUT AT STAFF. ORIENTED TO SELF ONLY. ORDER RECEIVED THIS AM FOR HALDOL AND IV ATIVAN. ADMINISTERED WHILE PATIENT IS IN DIALYSIS TO HELP RELAX PATIENT WHO WAS PULLING AT LINES AND TRYING TO GET OUT OF BED. MIR AT 1530 PT IS RESTING COMFORTABLY SNORING RESPS ARE HEARD. WILL MONITOR THIS PATIENT CLOSELY.
--- NOTE | 2018-11-20 19:34 | NUR ---
END OF SHIFT; PT HAS BEEN RESTING SINCE THIS AFTERNOON. REFUSED LUNCH AND NOON MEDS ARE HELD FOR SEDATION. PT IS CURRENTLY RESTING AND IS VERY SOMNOLENT. 1800 MEDICATION WAS HELD FOR SEDATION AND DINNER TRAY IS AT BEDSIDE. PT ROUSES TO VERBA STIMULI BUT FALLS ASLEEP ALMOST IMMEDIATELY. REPORT TO MARK GUTIERRES WHO WILL TRY AND WAKE PT THIS FALLON TO RECEIVE MEDICATIONS.
[2018-11-21 04:24] LABS: Hemoglobin 10.7 g/dL (13.5-17.5)
[2018-11-21 04:39] LABS: Albumin, Blood 2.2 g/dL (3.4-5.0); Anion Gap 7 mmol/L (6-16); Blood Urea Nitrogen 21 mg/dL (8-24); Bun/Creatinine Ratio 6.7 (12.0-20.0); CO2, Blood 33 mmol/L (21-32); Calcium, Blood 7.9 mg/dL (8.5-10.1); Chloride, Blood 103 mmol/L (98-108); Creatinine, Blood 3.14 mg/dL (0.60-1.20); Glomerular Filtration Rate 21 (60-); Glucose, Blood 88 mg/dL (70-99); Phosphorus, Blood 3.4 mg/dL (2.5-4.9); Potassium, Blood 3.7 mmol/L (3.5-5.5); Sodium, Blood 143 mmol/L (136-145)
--- NOTE | 2018-11-21 06:25 | NUR ---
END OF SHIFT SUMMARY PT HAS BEEN DROWSY AND ASLEEP FOR ENTIREITY OF SHIFT. PT DID AWAKE FOR 2100 MEDICATIONS AND BRIEFLY WHEN BEING ROLLED. WAS NOT ABLE TO GIVE 0000 ORAL MEDICATIONS DUE TO IT BEING UNSAFE R/T ASPIRATION RISK. VS HAVE BEEN STABLE. BLOOD SUGARS HAVE BEEN STABLE, D5-NS CONTINUING TO INFUSE. PT HAD DIALYSIS YESTERDAY. PT BEING TURNED BY STAFF. PT HAS GRADUALLY BEEN INCREASING IN MOVEMENT IN BED, COUGHING, AND EYE OPENING. THIS RN WILL BE GOING INTO ROOM TO TRY AND WAKE PT FOR 0600 MEDICATIONS. WILL CONTINUE TO MONITOR UNTIL SHIFT CHANGE.
--- NOTE | 2018-11-21 07:22 | NUR ---
ASSUMED CARE: PT RESTING IN BED AT THIS TIME. APPEARS TO BE SLEEPING, NO ACUTE NEEDS AT THIS TIME
--- NOTE | 2018-11-21 10:03 | NUR ---
DR ISTRATE AWARE OF PT'S LATEST CBG. ORDER FOR DC OF D5 DRIP AND CBGS Q2 IN ORDER TO VARIFY IF STABLE. POSSIBLE DC TODAY IF MAINTAINS SUGAR ABOVE 80. VICE PRESIDENT [employer] AWARE
--- NOTE | 2018-11-21 13:07 | NUR ---
NIGHT RN REPORTED NO WOUND PICS DONE DUE TO PT REFUSAL. DUE TO PT BEING RECENT ADMIT [employer] AUT[employer] BODY REPAIRER STATED NEW PHOTOS NOT NEEDED
[2018-11-21] MEDS ORDERED: LEVFLO500 PO (14:22)
--- NOTE | 2018-11-21 15:32 | NUR ---
PT DC'D BACK TO [facility]. REPORT CALLED TO NENITA GARCIA. DEMARCUS MCGUIRE DC'D WNL. PT TWO PERSON ASSIST TO FREDIS, ESCORTED OUT BY [facility].
== END 2018-11-21 14:50 | DRG 682 ==
LOC: ER 15:23 → PCU 17:10
PROVIDERS: Internal Medicine Nephrology; ADMIT Family Medicine
PROC: 5A1D70Z Performance of Urinary Filtration, Intermittent, Less than 6 Hours Per Day (ICD-10-PCS; principal; 2018-11-19)
PROC: 5A1D70Z Performance of Urinary Filtration, Intermittent, Less than 6 Hours Per Day (ICD-10-PCS; 2018-11-20)
PROC: 5A1D70Z Performance of Urinary Filtration, Intermittent, Less than 6 Hours Per Day (ICD-10-PCS; 2018-11-21)
DX: I12.0 Hypertensive chronic kidney disease with stage 5 chronic kidney disease or end stage renal disease (principal); N18.6 End stage renal disease; G92 Toxic encephalopathy; N25.81 Secondary hyperparathyroidism of renal origin; N39.0 Urinary tract infection, site not specified; I48.2 Chronic atrial fibrillation; Z99.2 Dependence on renal dialysis; Z79.01 Long term (current) use of anticoagulants; K74.60 Unspecified cirrhosis of liver; M10.9 Gout, unspecified; K21.9 Gastro-esophageal reflux disease without esophagitis; G25.81 Restless legs syndrome; G47.00 Insomnia, unspecified; D63.1 Anemia in chronic kidney disease; F17.210 Nicotine dependence, cigarettes, uncomplicated; E16.2 Hypoglycemia, unspecified
CPT/HCPCS: 36415; 71045; 80047; 80053; 80069; 82947; 83735; 83880; 84484; 85014; 85018; 85025; 87040; 93005; 93010; 93308; 94640; 94760; 96365; 96366; 96374; 96375; 96376; 97161; 97530; 99284; 99285-25; C1751; J1630; J1650; J1956; J2310; J7030; J7042; J7799

== ENCOUNTER 2018-11-30 07:04 | Inpatient (IN) | payer MEDICARE, OTHER ==
[~2018-11-30] VITALS: Ht 175.3 cm; Wt 82.0 kg
[~2018-11-30 07:04] MED LIST changes: +DILT30 PO
[2018-11-30 07:55] LABS: BASOPHILS ABSOLUTE AUTO 0.04 K/mm3 (0.00-0.23); BASOPHILS PERCENT AUTO 1 % (0-2); EOSINOPHILS PERCENT AUTO 2 % (0-6); Hematocrit 44.1 % (37.0-53.0); Hemoglobin 12.8 g/dL (13.5-17.5); IMMATURE GRAN ABSOLUTE AUTO 0.05 K/mm3 (0.00-0.10); IMMATURE GRAN PERCENT AUTO 1 % (0-1); LYMPHOCYTES ABSOLUTE AUTO 0.43 K/mm3 (0.84-5.20); LYMPHOCYTES PERCENT AUTO 7 % (21-46); MONOCYTES ABSOLUTE AUTO 0.33 K/mm3 (0.16-1.47); MONOCYTES PERCENT AUTO 5 % (4-13); Mean Corpuscular HGB 27.2 pg (26.0-34.0); Mean Corpuscular Volume 94 fL (80-100); NEUTROPHILS ABSOLUTE AUTO 5.57 K/mm3 (1.96-9.15); NEUTROPHILS PERCENT AUTO 85 % (41-73); Platelet Count 121 K/mm3 (150-400); RDW Coefficient Variation 19.1 % (11.7-14.2); White Blood Cell Count 6.52 K/mm3 (4.00-11.30)
[2018-11-30 08:10] LABS: Albumin, Blood 2.7 g/dL (3.4-5.0); Albumin/Globulin Ratio 0.8 (0.8-1.8); Bilirubin, Total 0.6 mg/dL (0.1-1.0); Bun/Creatinine Ratio 12.2 (12.0-20.0); Calcium, Blood 10.1 mg/dL (8.5-10.1); Creatinine, Blood 7.07 mg/dL (0.60-1.20); Globulin, Blood 3.6 g/dL (2.2-4.0); Potassium, Blood 5.6 mmol/L (3.5-5.5); Total Protein, Blood 6.3 g/dL (6.4-8.2)
[2018-11-30 08:54] LABS: International Normalized Ratio 0.99; Prothrombin Time Results 10.5 Sec (9.7-11.5)
--- NOTE | 2018-11-30 14:11 | NUR ---
RECEIVED REPORT FROM NENITA ARGUETA IN ED. PT TO ROOM AT 1215 VIA GURNEY. 4 PERSON TRANSFER WITH SLIDER SHEET. PT RESPONDS WITH FLEXION TO STERNAL RUB. EXTREMITIES OTHERWISE FLACCID, COOL, AND PINK, CAP REFILL >3 SECS. BREATHING IS EVEN AND UNLABORED, SHALLOW. LS DIM T/O, COARSE IN UPPER LOBES. SPO2 >94% ON 2L O2 VIA NC. PER TELE PT AFIB 120'S. BP STABLE. BS HYPOACTIVE X4 QUAD, SOFT NON-TENDER. REDNESS/OPEN TO COCCYX, MEPILEX PLACED. SKIN TEARS/ABRAISONS NOTED ON BILATERAL KNEE AND RIGHT DELONG, PICTURES IN CHART. BLOOD GLUCOSE OF 62 UPON ADMISSION, D50 ADMINISTERED PER EMAR, BLOOD GLUCOSE AT 119. DR MUNGUIA NOTIFIED, NEW ORDERS FOR CBG q4H X2, Q6H WHILE NPO AND ACHS WHEN DIET ORDERED AND EATING. WILL CONTINUE TO MONITOR. PER REPORT FROM ED, PT TRANSPORTED FROM [facility] DUE TO RIGHT CHEST PERM CATH NO IN PLACE. PT HAS BEEN LIVING AT [facility], CALLED AND REQUESTED RECORDS. DR CONCEPCION SAW PT IN ED AND DR FERNÁNDEZ NOTIFIED OF CONSULT AND NEED FOR PROCEDURE.
--- NOTE | 2018-11-30 15:38 | NUR ---
1400 Pt visit. Pt is resting in bed with his eyes closed and does not respond to verbal stimuli. Pt appears comfortable with no S/S of distress at this time. Spoke with dialysis nurse and discussed case. She reports Pt has been seen a significant decline with Pt on last visit to the hospital. Palliative Care will F/U when Pt is more alert.
--- NOTE | 2018-11-30 18:13 | NUR ---
SHIFT SUMMARY PT BACK FROM [facility] [facility], NEW DIALYSIS CATH PLACED IN RIGHT UPPER CHEST. MONITORING VS. ONCE IN ROOM, BLEEDING NOTED FROM THE TOP OF DRESSING. PT AT 45 DEGREE ANGLE PER ORDERS. PT CONTINUES TO RESPOND TO PAINFUL STIMULI WITH FLEXION, EYES OPENED FOR A COUPLE SECONDS. NO S/SX OF DISTRESS NOTED. REPOSITION FOR COMFORT AND PRESSURE ULCER PREVENTION. PLANS FOR DIALYSIS THIS EVENING, NOTIFIED RESIDENT CARE SPEC OK TO PROCEED. VSS. WILL CONTINUE TO MONITOR.
--- NOTE | 2018-11-30 20:42 | NUR ---
DIALYSIS CALLED IN TO DO STAT DIALYSIS ON PT WITH NEW PERMA CATH PLACEMENT. CALLED POA FOR PERMISSION TO DO DIALYSIS TREATMENT. SHE SAID YES. TOOK MACHINE TO THE ROOM AND SETUP. BUT CATH BLEEDING, CHANGED DRESSING, APPLIED PRESSURE. NOT STOPPING, MEDICAL OFFICE ASST HELD PRESSURE WHILE I STARTED TX. CALLED PA TO SEE IF COULD PUT IN A STITCH. SHE IS COMING TO EVALUATE THE SITUATION.
[2018-11-30 21:12] LABS: Hematocrit 37.6 % (37.0-53.0); Hemoglobin 11.3 g/dL (13.5-17.5)
--- NOTE | 2018-11-30 22:54 | NUR ---
IN ROOM DIALYSIS BY DIALYSIS NURSE COMPLETE.
--- NOTE | 2018-11-30 23:00 | NUR ---
CARE ASSUMPTION / SITE BLEED PT LETHARGIC. SMALL AMOUNT BLEEDING ABOVE PERMA CATH PLACEMENT SITE TO RIGHT UPPER CHEST WALL NOTED UPON CARE ASSUMPTION @ APPROX 1930. APPROX 15 MIN LATER UPON RETURN TO PT'S ROOM, SITE'S GAUZE DRESSING NOTED TO BE SATURATED W/ FRESH BLOOD. PRESSURE HELD ON SITE, CHARGE NURSE NOTIFIED OF BLEED. DIALYSIS NURSE IN ROOM DOING DIALYSIS (DIALYSIS INITIATED @ APPROX 2030). MANUAL PRESSURE HELD AT SITE OF NEW PERMA CATH. KIRAN DRESSING APPLIED TO SITE, 5 LB AND 2 LB WEIGHTS APPLIED TO SITE IN ATTEMPT TO STOP BLEEDING. SITE STILL BLEEDING. MANUAL PRESSURE RESUMED BY ROTATING STAFF. CALL TO AIDA GAINES W/ AIDA GAINES IN ROOM TO SEE PT, PRIMARY CARE PROVIDER UNABLE TO SUTURE PT. CALL TO MD CONCEPCION @ APPROX 0 W/ MD CONCEPCION ARRIVAL TO @ APPROX 2200 TO SUTURE SITE. NO BLEEDING SINCE SITE SUTURED.
--- NOTE | 2018-11-30 23:19 | NUR ---
DIALYSIS DR CONCEPCION CAME TO THE PT'S ROOM AND PLACED A SUTURE. THE BLOODING HAS STOPPED. CLEANED AND REDRESSED. WILL CHANGE DRESSING AGAIN TOMORROW (KIRAN WAS USED).
--- NOTE | 2018-12-01 04:44 | NUR ---
PT ALERT, CONVERSING WITH STAFF, ASKING FOR SOMETHING TO EAT. CALL TO MD SHI W/ DIET ORDER, SEE ORDERS.
[2018-12-01 05:26] LABS: Hematocrit 39.2 % (37.0-53.0); Hemoglobin 11.7 g/dL (13.5-17.5)
[2018-12-01 05:42] LABS: Albumin, Blood 2.6 g/dL (3.4-5.0); Anion Gap 9 mmol/L (6-16); Blood Urea Nitrogen 60 mg/dL (8-24); Bun/Creatinine Ratio 10.8 (12.0-20.0); CO2, Blood 31 mmol/L (21-32); Calcium, Blood 8.7 mg/dL (8.5-10.1); Chloride, Blood 101 mmol/L (98-108); Creatinine, Blood 5.54 mg/dL (0.60-1.20); Glomerular Filtration Rate 11 (60-); Glucose, Blood 89 mg/dL (70-99); Magnesium, Blood 2.3 mg/dL (1.6-2.4); Phosphorus, Blood 3.2 mg/dL (2.5-4.9); Potassium, Blood 4.3 mmol/L (3.5-5.5); Sodium, Blood 141 mmol/L (136-145)
--- NOTE | 2018-12-01 05:59 | NUR ---
SHIFT SUMMARY PT LETHARGIC, WAKING ONLY TO PAINFUL STIMULI UPON CARE ASSUMPTION, ONLY ABLE TO OPEN EYES BRIEFLY. PT NOW WAKES TO VERBAL STIMULI AND IS A&O X4. VSS. SPO2 > 92% ON 3L NC. MONITOR SHOWS AFIB, HR 120-145. DIALYSIS DONE IN ROOM THIS SHIFT BY DIALYSIS NURSE. PERMA CATH W/ POST OP BLEED THIS SHIFT. MGLADE IN ROOM TO SUTURE PERMA CATH SITE W/ RESOLUTION OF BLEED. PT'S SKIN NOTED TO BE FRAGILE T/O W/ ABRASIONS PRESENT TO ALL EXTREMITIES. MEPILEX DRESSINGS APPLIED TO OPEN AREAS. PT NO LONGER NPO, TOLERATING DIET. WILL CONTINUE TO MONITOR AND PROVIDE CARE UNTIL REPORT OFF TO DAY SHIFT RN.
--- NOTE | 2018-12-01 12:54 | NUR ---
NOTIFIED DR MUNGUIA OF BP AND CBG, CLARIFIED CARDIZEM FOR PARAMETERS, NEW ORDES ENTERED. LAST CBG AT 77 AFTER JUICE AND MEAL. WILL CONTINUE TO MONITOR.
--- NOTE | 2018-12-01 17:05 | NUR ---
met with patient twice today. Review of how he was tolerating dialysis. He had to have UF reduced and small fluid bolus. Pt legs twitch frequently. he yells out. has delirium and searches for words. Met with him this afternoon slightly more alert but drifts off more eye contact but searches for words. Theraputic time with him regarding comfort. did some repositioning. Asked him what he remembered. We reviewed what brought him in. He got very angry about his catheter states he did not pull out catheter. We had a blunt conversation about his decline and lack of memory. Advised him that he always yells at me and that I will not back down from him. Told him that he has support and security here that we will not let him suffer. Asked if he wants me to call Shyla he said yes. Spoke with Shyla Cummings his POA on his VA directive. She had stood by Jeromy for many years and tolerated him treating her terribly. however, they have a long standing pact. She is willing to come in tomorrow and work with him to complete a polst. She knows its time to change the course of his care. Will review prognosis and speak with dialysis clinical staff and encourage Dr norwood to accept new plan pt KPS score is 30%. pt high risk for suden . Will include father tiffany and Jaciel rascon in plan to respect patients spiritual and religous beleifs and needs.
--- NOTE | 2018-12-01 17:36 | NUR ---
SHIFT SUMMARY UPON ASSUMPTION OF CARE PT RESPONDING TO VERBAL STIMULI BUT FALLING ALSEEPING QUICKLY, ANSWERS A COUPLE QUESTIONS AT A TIME. LATER IN SHIFT PT A&Ox3, FORGETFULL. STATES HE DOES NOT REMEMBER THE DIALYSIS CATH COMING OUT. SOB WITH MOVEMENT/EXERTION >92% ON 2-3L O2 VIA NC. LD COARSE/ DIM BASES. PT DENIES PAIN AND NAUSEA, HAS GOOD APPETEITE AND REQUESTS FOOD/SNACKS T/O SHIFT. CBG THIS AFTERNOON LOW, ASYMPTOMATIC, PROVIDED WITH JUICE AND RECEHCKED, CONTINES IN 70'S FOR REMAINDER OF SHIFT. PER TELE HR AVERAGING 150-160 THIS AM, MEDICATED WITH PO MEDICATIONS PER EMAR, PT HAD A 3 SEC PAUSES THIS AFTERNOON, VSS, ASYMPTOMATIC, NOTIFIED DR MUNGUIA, NO NEW ORDERS, CONTINUE TO MONITOR AND IF PT CONTINUES TO HAVE PAUSES NOTIFY PROVIDER. DIALYSIS THIS AM. NO BLEEDING NOTED AT SITE. DRESSING FOR WOUND C/D/I. OTHER VSS. NO OTHER ACUTE CHANGES NOTED DURING SHIFT. WILL CONTINUE TO MONITOR UNITL REPORT GIVEN TO ONCOMING RN.
[2018-12-02 04:32] LABS: Hematocrit 33.3 % (37.0-53.0); Hemoglobin 10.2 g/dL (13.5-17.5)
[2018-12-02 04:47] LABS: Albumin, Blood 2.4 g/dL (3.4-5.0); Anion Gap 8 mmol/L (6-16); Blood Urea Nitrogen 41 mg/dL (8-24); Bun/Creatinine Ratio 9.6 (12.0-20.0); CO2, Blood 32 mmol/L (21-32); Calcium, Blood 8.1 mg/dL (8.5-10.1); Chloride, Blood 99 mmol/L (98-108); Creatinine, Blood 4.29 mg/dL (0.60-1.20); Glomerular Filtration Rate 15 (60-); Glucose, Blood 72 mg/dL (70-99); Phosphorus, Blood 2.2 mg/dL (2.5-4.9); Sodium, Blood 139 mmol/L (136-145)
--- NOTE | 2018-12-02 05:07 | NUR ---
SHIFT SUMMARY PT A&O X4, CALM AND COOPERATIVE. SPO2 > 92% ON 2L NC. MONITOR SHOWS AFIB, HR 110-155 W/ A 3.04 SECOND PAUSE THIS SHIFT AT APPROX 1945. PT ASYMPTOMATIC, VSS. NO OTHER EVENTS THIS SHIFT. SUTURES REMAIN IN PLACE TO R UPPER CHEST WALL DIALYSIS ACCESS SITE. SITE WNL. SKIN TEARS NOTED T/O RIGHT FOREARM. WOUNDS TO BLE NOTED, MEPILEX DRESSINGS IN PLACE. PT ASKING FOR A CIGARETTE & A "BLAST" WHICH PT EXPLAINS TO BE A BLAST OF MARIJUANA. PT ALSO ASKING TO GO HOME. PT RESUMING EPISODES OF CONTINENCE, NOW ASKING TO USE URINAL APPROPRIATELY, REQUIRING ASSISTANCE W/ USE. PT IN BED W/ CALL LIGHT IN REACH. WILL CONTINUE TO MONITOR AND PROVIDE CARE UNTIL REPORT OFF TO DAY SHIFT RN.
--- NOTE | 2018-12-02 11:24 | NUR ---
Met with patient this morning before appointment with his POA. Pt more alert no dialysis scheduled today. pt anxious to go back to [facility]. he is glad no dialysis today. Advised patient we need to meet with Shyla his POA for a plan. He has not seen careol recently he lit up and was very happy to see her. He has poor recolection of his admission. We reviewed his care. He still wants dialysis and care. He asked if he was getting worse. Discussed with him some decline but still reponding to dialysis. Had open discussion that he has to about evenual decline and what he wants. Advised him that we want to respect his lópez and wishes carefully and avoid suffering so Shyla needs to know how to proceed. Pt relayed no CPR, Tno ventilator but would accept all care. He stated that if he was very sick or his heart stopped he would want to go which is in line with his AD. New pols completed with DNR, limited treatent and continue dialysis. copies sent to medical records, [place] medical records, [facility], original given to Shyla. She remains steadfast in her commitment to care for him.
--- NOTE | 2018-12-02 13:09 | NUR ---
CARE MANAGEMENT CALLED TO REPORT PATIENTS TRASPORT WILL BE HERE AT 1320. DEMARCUS ERNST PT ASSISTED TO DRESS.
--- NOTE | 2018-12-02 13:25 | NUR ---
PT TO JAMES VIA WHEEL CHAIR WITH ELE
--- NOTE | 2018-12-02 14:09 | NUR ---
REPORT GIVEN TO JAMES, PT WAS DISCHARGED BACK TO THE MEDICAL CENTER, IV POWER GLIDE REMOVED INTACT, LEFT VIA WHEELCHAIR VAN.
== END 2018-12-02 13:31 | disposition home or self-care (01) | DRG 291 ==
LOC: ER 07:04 → PCU 10:33
PROVIDERS: Emergency Medicine; Internal Medicine Nephrology; Nurse Practitioner Acute Care; ADMIT Internal Medicine
PROC: 0JH63XZ Insertion of Tunneled Vascular Access Device into Chest Subcutaneous Tissue and Fascia, Percutaneous Approach (ICD-10-PCS; principal; 2018-11-30)
PROC: 02HV33Z Insertion of Infusion Device into Superior Vena Cava, Percutaneous Approach (ICD-10-PCS; 2018-11-30)
PROC: B5181ZA Fluoroscopy of Superior Vena Cava using Low Osmolar Contrast, Guidance (ICD-10-PCS; 2018-11-30)
PROC: 5A1D70Z Performance of Urinary Filtration, Intermittent, Less than 6 Hours Per Day (ICD-10-PCS; 2018-11-30)
DX: I13.0 Hypertensive heart and chronic kidney disease with heart failure and stage 1 through stage 4 chronic kidney disease, or unspecified chronic kidney disease (principal); N18.6 End stage renal disease; G92 Toxic encephalopathy; I48.92 Unspecified atrial flutter; I50.32 Chronic diastolic (congestive) heart failure; I48.2 Chronic atrial fibrillation; M10.9 Gout, unspecified; K74.60 Unspecified cirrhosis of liver; J44.9 Chronic obstructive pulmonary disease, unspecified; G25.81 Restless legs syndrome; D63.1 Anemia in chronic kidney disease; Z98.84 Bariatric surgery status; F17.210 Nicotine dependence, cigarettes, uncomplicated; Z86.14 Personal history of Methicillin resistant Staphylococcus aureus infection; K21.9 Gastro-esophageal reflux disease without esophagitis; Z79.82 Long term (current) use of aspirin; Z99.2 Dependence on renal dialysis; E87.5 Hyperkalemia; E16.2 Hypoglycemia, unspecified; Z66 Do not resuscitate
CPT/HCPCS: 36415; 36558; 71045; 76937; 80053; 80069; 82947; 83735; 85014; 85018; 85025; 85610; 94640; 94760; 94762; 97110; 97162; 97166; 97530; 99285-25; C1750; C1751; C1769; J1644; J7030; J7042; J7060; J7799

== ENCOUNTER 2018-12-07 11:48 | Emergency (ER) | payer MEDICARE, OTHER ==
[~2018-12-07] VITALS: Ht 172.7 cm; Wt 90.7 kg
[2018-12-07 12:10] LABS: Calcium, Ionized (POC) 0.92 mmol/L (1.10-1.46); Chloride (POC) 104 mmol/L (98-108); Creatinine (POC) 7.1 mg/dL (0.8-1.3); Glucose (ISTAT POC) 89 mg/dL (70-99); Hemoglobin (POC) 11.6 g/dL (13.5-17.5); Potassium (POC) 5.2 mmol/L (3.5-5.5); Sodium (POC) 136 mmol/L (135-148); Total CO2 (POC) 27 mmol/L (21-32)
[2018-12-07 13:27] LABS: BASOPHILS ABSOLUTE AUTO 0.01 K/mm3 (0.00-0.23); BASOPHILS PERCENT AUTO 0 % (0-2); EOSINOPHILS ABSOLUTE AUTO 0.01 K/mm3 (0.00-0.68); EOSINOPHILS PERCENT AUTO 0 % (0-6); IMMATURE GRAN ABSOLUTE AUTO 0.04 K/mm3 (0.00-0.10); IMMATURE GRAN PERCENT AUTO 0 % (0-1); LYMPHOCYTES ABSOLUTE AUTO 0.22 K/mm3 (0.84-5.20); LYMPHOCYTES PERCENT AUTO 2 % (21-46); MONOCYTES ABSOLUTE AUTO 0.61 K/mm3 (0.16-1.47); MONOCYTES PERCENT AUTO 6 % (4-13); Mean Corpuscular HGB 27.8 pg (26.0-34.0); Mean Corpuscular HGB Conc 29.7 g/dL (31.5-36.5); Mean Corpuscular Volume 94 fL (80-100); NEUTROPHILS ABSOLUTE AUTO 9.92 K/mm3 (1.96-9.15); NEUTROPHILS PERCENT AUTO 92 % (41-73); Platelet Count 90 K/mm3 (150-400); RDW Coefficient Variation 19.2 % (11.7-14.2); RDW Standard Deviation 64.9 fL (35.1-46.3); Red Blood Cell Count 3.95 M/mm3 (4.30-5.90); White Blood Cell Count 10.81 K/mm3 (4.00-11.30)
[2018-12-07 13:51] LABS: Albumin, Blood 2.5 g/dL (3.4-5.0); Albumin/Globulin Ratio 0.8 (0.8-1.8); BASOPHILS PERCENT MAN 0 % (0-2); Bilirubin, Total 0.7 mg/dL (0.1-1.0); Bun/Creatinine Ratio 12.1 (12.0-20.0); Calcium, Blood 8.7 mg/dL (8.5-10.1); Creatinine, Blood 6.01 mg/dL (0.60-1.20); EOSINOPHILS PERCENT MAN 0 % (0-6); Globulin, Blood 3.3 g/dL (2.2-4.0); MONOCYTES PERCENT MAN 0 % (4-13); NEUTROPHILS ABSOLUTE MAN 10.81 K/mm3 (1.96-9.15); Potassium, Blood 5.2 mmol/L (3.5-5.5); SEG NEUTROPHILS PERCENT MAN 100 % (41-73); TOTAL CELLS COUNTED 1; Total Protein, Blood 5.8 g/dL (6.4-8.2)
--- NOTE | 2018-12-07 14:38 | NUR ---
Initial Visit: ED Palliative Care Consult for Goals of Care. Spoke with Dr Sen and discussed case. Dr Sen states receiving report Pt has refused his last 2 dialysis treatments. Pt is resting on gurney upon arrival. He is minimally responsive and briefly opens his eyes with verbal stimuli then quickly closes them. Mild dyspnea noted as evidenced by work of breathing. No other S/S of distress at this time. Called and spoke with facility nurse Cara and she confirms Pt refusing last 2 dialysis treatments. Spoke with facility child care centre manager Liyah and discussed case. She also reports Pt refusing treatments and a discussion was made shortly after his last hospital discharge regarding goals of care. Liyah reports Pt states he wanted to remain comfortable but wanted to continue dialysis. Liyah agrees that goals of care should be revisted due to refusal of his last 2 dialysis treatments. Called and spoke with Health Care Decision Maker listed on Pt's Advanced Directive Shyla Emiliano. Engaged in therapeutic discussion regarding goals of care. Discussed his refusal for dialysis treatment and Shyla reports that Pt is ready for comfort measures and is agreeable with hospice. Palliative Care RN Theresa witnesses converssation via speaker phone. Discussed case with ED planner scheduler Stacey and Dr Betancourt. Dr Betancourt reports plan to discharge back to [facility]. Theresa reports she will begin the hospice referral and discharge plan. Discussed with Dr Sen regarding sending Pt home with prescriptions for comfort medications. Dr Sen prescribes Roxinol and Ativan. Palliative Care will remain available.
== END 2018-12-07 14:37 | disposition home or self-care (01) ==
LOC: ER 11:48
PROVIDERS: Emergency Medicine
DX: I12.0 Hypertensive chronic kidney disease with stage 5 chronic kidney disease or end stage renal disease (principal); N18.6 End stage renal disease; I48.2 Chronic atrial fibrillation; J44.9 Chronic obstructive pulmonary disease, unspecified; K21.9 Gastro-esophageal reflux disease without esophagitis; F17.210 Nicotine dependence, cigarettes, uncomplicated; Z95.9 Presence of cardiac and vascular implant and graft, unspecified; Z66 Do not resuscitate; Z88.8 Allergy status to other drugs, medicaments and biological substances; Z91.048 Other nonmedicinal substance allergy status; Z79.899 Other long term (current) drug therapy; Z79.82 Long term (current) use of aspirin
CPT/HCPCS: 36415; 80047; 80053; 82140; 85014; 85025; 93005; 93010; 99285-25